=== PATIENT | male | born 1930 | race Caucasian/White ===

== ENCOUNTER 2016-02-15 10:59 | Outpatient (CLI) | payer MEDICARE, BC | END 2016-02-15 11:00 | disposition home or self-care (01) | DX: I48.91 Unspecified atrial fibrillation (principal) ==

== ENCOUNTER 2016-03-07 10:38 | Outpatient (CLI) | payer MEDICARE, BC | END 2016-03-07 10:39 | disposition home or self-care (01) | DX: I48.91 Unspecified atrial fibrillation (principal) ==

== ENCOUNTER 2016-04-04 09:06 | Outpatient (CLI) | payer MEDICARE, BC | END 2016-04-04 09:07 | disposition home or self-care (01) | DX: I48.91 Unspecified atrial fibrillation (principal) ==

== ENCOUNTER 2016-04-18 11:42 | Outpatient (CLI) | payer MEDICARE, BC | END 2016-04-18 11:43 | disposition home or self-care (01) | DX: R53.83 Other fatigue (principal); I48.91 Unspecified atrial fibrillation ==

== ENCOUNTER 2016-04-23 04:25 | Outpatient (CLI) | payer MEDICARE, OTHER | END 2016-04-23 04:26 | disposition critical access hospital (66) | DX: M54.2 Cervicalgia (principal); M25.511 Pain in right shoulder; W07.XXXA Fall from chair, initial encounter; Y92.009 Unspecified place in unspecified non-institutional (private) residence as the place of occurrence of the external cause | CPT/HCPCS: A0425; A0429 ==

== ENCOUNTER 2016-04-23 04:32 | Emergency (ER) | payer MEDICARE, OTHER ==
[2016-04-23] MEDS ORDERED: MORPHINE 2 MG/ML SYRINGE IVP STA (05:30)
[2016-04-23] MEDS ORDERED: MORPHINE 2 MG/ML SYRINGE ONE (05:32)
[2016-04-23] MEDS ORDERED: HYDROcod/ACET 5/325 Prepack 6 PO STA (07:29)
[2016-04-23] MEDS ORDERED: HYDROcod/ACET 5/325 Prepack 6 PO ONE (07:35)
[2016-04-23] MEDS ORDERED: CYCLOBENZAPRINE 10 MG TABLET PO ONE (07:54)
[2016-04-23] MEDS ORDERED: CYCLOBENZAPRINE 10 MG TABLET PO STA (07:54)
== END 2016-04-23 08:16 | disposition home or self-care (01) ==
DX: S16.1XXA Strain of muscle, fascia and tendon at neck level, initial encounter (principal); S43.401A Unspecified sprain of right shoulder joint, initial encounter; W01.0XXA Fall on same level from slipping, tripping and stumbling without subsequent striking against object, initial encounter; Y93.01 Activity, walking, marching and hiking; Y92.009 Unspecified place in unspecified non-institutional (private) residence as the place of occurrence of the external cause; Y99.8 Other external cause status; I50.9 Heart failure, unspecified; I48.91 Unspecified atrial fibrillation; Z79.01 Long term (current) use of anticoagulants; Z95.0 Presence of cardiac pacemaker
CPT/HCPCS: 36415; 72125; 73060; 80053; 83690; 85025; 85610; 85730; 96374; 99284; 99285; A9270

== ENCOUNTER 2016-05-09 08:55 | Outpatient (CLI) | payer MEDICARE, OTHER | END 2016-05-09 08:56 | disposition home or self-care (01) | DX: I48.91 Unspecified atrial fibrillation (principal) ==

== ENCOUNTER 2016-05-23 09:59 | Outpatient (CLI) | payer MEDICARE, OTHER | END 2016-05-23 10:00 | disposition home or self-care (01) | DX: I48.91 Unspecified atrial fibrillation (principal) ==

== ENCOUNTER 2016-06-20 09:46 | Outpatient (CLI) | payer MEDICARE, OTHER | END 2016-06-20 09:47 | disposition home or self-care (01) | LOC: LAB 09:46 | PROVIDERS: ATTEND Internal Medicine | DX: I48.91 Unspecified atrial fibrillation (principal) | CPT/HCPCS: 85610 ==

== ENCOUNTER 2016-07-18 12:13 | Outpatient (CLI) | payer MEDICARE, OTHER | END 2016-07-18 12:14 | disposition home or self-care (01) | LOC: LAB 12:13 | PROVIDERS: ATTEND Internal Medicine | DX: I48.91 Unspecified atrial fibrillation (principal) | CPT/HCPCS: 85610 ==

== ENCOUNTER 2016-08-01 09:55 | Outpatient (CLI) | payer MEDICARE, OTHER | END 2016-08-01 09:56 | disposition home or self-care (01) | LOC: LAB 09:55 | PROVIDERS: ATTEND Internal Medicine | DX: I48.91 Unspecified atrial fibrillation (principal) | CPT/HCPCS: 85610 ==

== ENCOUNTER 2016-08-29 15:08 | Outpatient (CLI) | payer MEDICARE, OTHER | END 2016-08-29 15:09 | disposition home or self-care (01) | LOC: LAB 15:08 | PROVIDERS: ATTEND Internal Medicine | DX: I48.91 Unspecified atrial fibrillation (principal) | CPT/HCPCS: 85610 ==

== ENCOUNTER 2016-09-26 08:01 | Outpatient (CLI) | payer MEDICARE, OTHER | END 2016-09-26 08:02 | disposition home or self-care (01) | LOC: LAB 08:01 | PROVIDERS: ATTEND Internal Medicine | DX: I48.91 Unspecified atrial fibrillation (principal) | CPT/HCPCS: 85610 ==

== ENCOUNTER 2016-10-02 08:00 | Outpatient (CLI) | payer MEDICARE, OTHER | END 2016-10-02 08:01 | disposition home or self-care (01) | LOC: LAB 08:00 | PROVIDERS: ATTEND Internal Medicine | DX: I48.91 Unspecified atrial fibrillation (principal) | CPT/HCPCS: 85610 ==

== ENCOUNTER 2016-10-30 09:43 | Outpatient (CLI) | payer MEDICARE, OTHER | END 2016-10-30 09:44 | disposition home or self-care (01) | LOC: LAB 09:43 | PROVIDERS: ATTEND Internal Medicine | DX: I48.91 Unspecified atrial fibrillation (principal) | CPT/HCPCS: 85610 ==

== ENCOUNTER 2016-11-06 10:28 | Outpatient (CLI) | payer MEDICARE, OTHER | END 2016-11-06 10:29 | disposition home or self-care (01) | LOC: LAB 10:28 | PROVIDERS: ATTEND Internal Medicine | DX: I48.91 Unspecified atrial fibrillation (principal) | CPT/HCPCS: 85610 ==

== ENCOUNTER 2016-12-21 12:23 | Outpatient (CLI) | payer MEDICARE, OTHER | END 2016-12-21 12:24 | disposition home or self-care (01) | LOC: LAB 12:23 | PROVIDERS: ATTEND Internal Medicine | DX: I48.91 Unspecified atrial fibrillation (principal) | CPT/HCPCS: 85610 ==

== ENCOUNTER 2017-01-01 09:42 | Outpatient (CLI) | payer MEDICARE, OTHER | END 2017-01-01 09:43 | disposition home or self-care (01) | LOC: LAB 09:42 | PROVIDERS: ATTEND Internal Medicine | DX: I48.91 Unspecified atrial fibrillation (principal) | CPT/HCPCS: 85610 ==

== ENCOUNTER 2017-01-17 21:24 | Outpatient (CLI) | payer MEDICARE, OTHER | END 2017-01-17 21:25 | disposition EMS.NT | LOC: EMS 21:24 | PROVIDERS: ATTEND Surgery | DX: S09.90XA Unspecified injury of head, initial encounter (principal); W01.10XA Fall on same level from slipping, tripping and stumbling with subsequent striking against unspecified object, initial encounter; Y92.009 Unspecified place in unspecified non-institutional (private) residence as the place of occurrence of the external cause ==

== ENCOUNTER 2017-01-30 10:13 | Outpatient (CLI) | payer MEDICARE, OTHER | END 2017-01-30 10:14 | disposition home or self-care (01) | LOC: LAB 10:13 | PROVIDERS: ATTEND Internal Medicine | DX: I48.91 Unspecified atrial fibrillation (principal) | CPT/HCPCS: 85610 ==

== ENCOUNTER 2017-02-13 11:52 | Outpatient (CLI) | payer MEDICARE, OTHER | END 2017-02-13 11:53 | disposition home or self-care (01) | LOC: LAB 11:52 | PROVIDERS: ATTEND Internal Medicine | DX: I48.91 Unspecified atrial fibrillation (principal) | CPT/HCPCS: 85610 ==

== ENCOUNTER 2017-03-13 15:49 | Outpatient (CLI) | payer MEDICARE, OTHER | END 2017-03-13 15:50 | disposition home or self-care (01) | LOC: LAB 15:49 | PROVIDERS: ATTEND Internal Medicine | DX: I48.91 Unspecified atrial fibrillation (principal) | CPT/HCPCS: 85610 ==

== ENCOUNTER 2017-04-10 11:23 | Outpatient (CLI) | payer MEDICARE, OTHER | END 2017-04-10 11:24 | disposition home or self-care (01) | LOC: LAB 11:23 | PROVIDERS: ATTEND Internal Medicine | DX: I48.91 Unspecified atrial fibrillation (principal) | CPT/HCPCS: 85610 ==

== ENCOUNTER 2017-05-08 10:21 | Outpatient (CLI) | payer MEDICARE, OTHER ==
[2017-05-08 10:40] LABS: INR 2.3 (0.8-1.2); PT - PROTHROMBIN TIME 25.2 secs (9.9-12.6)
[2017-05-08 10:44] LABS: CALCIUM 9.1 mg/dL (8.5-10.3); CREATININE 1.1 mg/dL (0.6-1.2)
== END 2017-05-08 10:22 | disposition home or self-care (01) ==
LOC: LAB 10:21
PROVIDERS: ATTEND Internal Medicine
DX: I48.91 Unspecified atrial fibrillation (principal); I48.1 Persistent atrial fibrillation
CPT/HCPCS: 36415; 80048; 85610

== ENCOUNTER 2017-06-05 13:51 | Outpatient (CLI) | payer MEDICARE, OTHER | END 2017-06-05 13:52 | disposition home or self-care (01) | LOC: LAB 13:51 | PROVIDERS: ATTEND Internal Medicine | DX: I48.91 Unspecified atrial fibrillation (principal) | CPT/HCPCS: 85610 ==

== ENCOUNTER 2017-07-03 15:28 | Outpatient (CLI) | payer MEDICARE, OTHER ==
[2017-07-03 15:55] LABS: PT - PROTHROMBIN TIME 58.1 secs (9.9-12.6)
[2017-07-03 16:08] LABS: INR 5.5 (0.8-1.2)
== END 2017-07-03 15:29 | disposition home or self-care (01) ==
LOC: LAB 15:28
PROVIDERS: ATTEND Internal Medicine
DX: I48.91 Unspecified atrial fibrillation (principal)
CPT/HCPCS: 85610

== ENCOUNTER 2017-07-04 20:22 | Outpatient (CLI) | payer MEDICARE, OTHER | END 2017-07-04 20:23 | disposition critical access hospital (66) | LOC: EMS 20:22 | PROVIDERS: ATTEND Surgery | DX: R53.1 Weakness (principal); R50.9 Fever, unspecified; R53.83 Other fatigue | CPT/HCPCS: A0425; A0429 ==

== ENCOUNTER 2017-07-04 20:32 | Inpatient (IN) | payer MEDICARE, OTHER ==
[2017-07-04] MEDS ORDERED: SODIUM CHLORIDE 0.9% 1,000 ML IV ONE (20:59)
--- NOTE | 2017-07-04 21:02 | ED Physician Documentation ---
History of Present Illness - Stated complaint Stated Complaint: WEAK/SHAKEY - Chief complaint Chief Complaint: General - History obtained from History obtained from: Patient, Family, EMS - History of Present Illness Timing: Today Pain level max: 3 Pain level now: 3 Improved by: oxygen Worsened by: exertion - Additonal information Additional information: Patient is an 86-year-old male who developed shaking and chills today. EMS was called and found to be febrile and hypoxic. Started on oxygen. He did suffer a ground-level fall approximately 3 days ago. He did not hit his head. Did not have any chest abdomen or back pain. He currently states that he feels very cold. He is currently holding his warfarin due to an elevated INR yesterday. Denies any cough. Denies any urinary symptoms. No diarrhea. No blood in the stool. No headache. No altered mental status. Review of Systems Ten Systems: 10 systems reviewed and negative Constitutional: reports: Fever, Chills Respiratory: reports: Cough Skin: denies: Rash Musculoskeletal: denies: Neck pain, Back pain Neurologic: reports: Generalized weakness. denies: Confused, Altered mental status PD PAST MEDICAL HISTORY - Past Medical History Cardiovascular: Congestive heart failure, Atrial fibrillation Respiratory: None Endocrine/Autoimmune:  GI: GERD : Benign prostate hypertrophy, Incontinence, Frequency HEENT: Chronic vision loss, Chronic hearing loss Psych: None Musculoskeletal: Osteoarthritis Derm: None - Past Surgical History Past Surgical History: Yes General: Cholecystectomy, Colonoscopy Ortho: Hip replacement, Carpal Tunnel surgery Cardiovascular: Pacemaker HEENT: Cataracts Derm:  - Present Medications Home Medications: Ambulatory Orders Medication Instructions Recorded Confirmed Cyanocobalamin (Vitamin B-12) 1,000 mcg PO BID 12/30/14 10/31/16 [B-12] Multivit-Min/FA/Lycopen/Lutein 1 tab ORAL DAILY 12/30/14 10/31/16 [Centrum Silver Tablet] Furosemide 1 tab PO DAILY 04/23/16 10/31/16 Lisinopril 1 tab PO DAILY 04/23/16 10/31/16 Potassium Chloride [K-Dur] 1 tab PO DAILY 04/23/16 10/31/16 Warfarin Sodium 2.5 - 5 mg PO DAILY PM 04/23/16 10/31/16 Acetaminophen [Tylenol Extra 1 tab PO DAILY PM 10/31/16 10/31/16 Strength] Digoxin 125 mcg PO DAILY 10/31/16 10/31/16 - Allergies Allergies/Adverse Reactions: Allergies Allergy/AdvReac Type Severity Reaction Status Date / Time No Known Drug Allergies Allergy Verified 07/04/17 20:49 - Social History Does the pt smoke?: No Smoking Status: Never smoker Does the pt drink ETOH?: No Does the pt have substance abuse?: No - Immunizations Immunizations are current?: Yes - POLST Patient has POLST: No PD ED PE NORMAL - Vitals Vital signs reviewed: Yes - General General: Alert and oriented X 3, No acute distress - HEENT HEENT: Ears normal, Pharynx benign, Other (dry lips) - Neck Neck: Supple, no meningeal sign - Cardiac Cardiac: RRR - Respiratory Respiratory: No respiratory distress, Other (diminished BS bilaterally.) - Abdomen Abdomen: Soft, Non tender, Non distended - Back Back: No spinal TTP - Derm Derm: Other (hot to the touch. moist skin) - Extremities Extremities: Other (B LE edema with chronic ulcerations B. ) - Neuro Neuro: Alert and oriented X 3 - Psych Psych: Normal mood, Normal affect Results - Vitals Vitals: Vital Signs - 24 hr 07/04/17 07/04/17 07/04/17 20:34 21:00 21:30 Temperature 39 C H 38.1 C H Heart Rate 79 75 72 Respiratory 25 H 22 20 Rate Blood Pressure 145/76 H 166/107 H 136/56 H O2 Saturation 86 L 95 96 Oxygen O2 Source [Without Activity] Room air O2 Source Nasal cannula Oxygen Flow Rate 2 - EKG (time done) 2047 Rate: Rate (enter#) (81) Rhythm: Atrial fibrillation [place]: Normal QRS: Normal Ischemia: Non specific changes - Labs Labs: Laboratory Tests 07/04/17 07/04/17 07/04/17 21:10 21:10 21:10 WBC 12.6 H RBC 4.31 L Hgb 13.8 L Hct 42.1 MCV 97.7 H MCH 32.0 H MCHC 32.8 RDW 14.1 Plt Count 136 MPV 8.4 Neut # 11.8 H Lymph # 0.3 L Hardin # 0.5 Eos # 0.0 Baso # 0.0 Absolute Nucleated RBC 0.00 Nucleated RBC % 0.0 PT INR Sodium 135 Potassium 4.5 Chloride 97 L Carbon Dioxide 30 Anion Gap 8.0 BUN 23 H Creatinine 1.1 Estimated GFR (MDRD) 63 L Glucose 128 H Lactic Acid 1.7 Calcium 9.3 Total Bilirubin 3.7 H AST 41 ALT 31 Alkaline Phosphatase 137 H Troponin I B-Natriuretic Peptide Total Protein 7.4 Albumin 3.9 Globulin 3.5 Albumin/Globulin Ratio 1.1 Lipase 66 H Last Dose Date Last Dose Time Digoxin 07/04/17 07/04/17 07/04/17 21:10 21:10 21:10 WBC RBC Hgb Hct MCV MCH MCHC RDW Plt Count MPV Neut # Lymph # Hardin # Eos # Baso # Absolute Nucleated RBC Nucleated RBC % PT 51.6 H INR 4.9 H* Sodium Potassium Chloride Carbon Dioxide Anion Gap BUN Creatinine Estimated GFR (MDRD) Glucose Lactic Acid Calcium Total Bilirubin AST ALT Alkaline Phosphatase Troponin I B-Natriuretic Peptide 312 H Total Protein Albumin Globulin Albumin/Globulin Ratio Lipase Last Dose Date UNKNOWN Last Dose Time UNKNOWN Digoxin 0.9 07/04/17 21:10 WBC RBC Hgb Hct MCV MCH MCHC RDW Plt Count MPV Neut # Lymph # Hardin # Eos # Baso # Absolute Nucleated RBC Nucleated RBC % PT INR Sodium Potassium Chloride Carbon Dioxide Anion Gap BUN Creatinine Estimated GFR (MDRD) Glucose Lactic Acid Calcium Total Bilirubin AST ALT Alkaline Phosphatase Troponin I 0.11 B-Natriuretic Peptide Total Protein Albumin Globulin Albumin/Globulin Ratio Lipase Last Dose Date Last Dose Time Digoxin - Rads (name of study) cxr Radiology: Prelim report reviewed, EMP read contemporaneously, See rad report ( Bibasal consolidation with partial collapse of the left lower lobe and a small right-sided pleural effusion) PD MEDICAL DECISION MAKING - ED course Complexity details: reviewed results, re-evaluated patient, considered differential, d/w patient, d/w family, d/w hospice care sales consultant ED course: Patient is an 86-year-old male who presents to the emergency department with pneumonia, probable early sepsis. He is hypoxic, febrile. Blood cultures drawn. IV fluids gently given due to his history of heart failure. He was given broad-spectrum antibiotics. INR is supratherapeutic, will continue to hold his warfarin. Discussed the case with Dr. Khan, hospitalist who accepts. This document was made in part using voice recognition software. While efforts are made to proofread this document, sound alike and grammatical errors may occur. Departure - Departure Disposition: [facility] DC/Xfer Clinical Impression: Hypoxia, Supratherapeutic INR Pneumonia Qualifiers: Pneumonia type: due to unspecified organism Laterality: right Lung location: lower lobe of lung Qualified Code(s): J18.1 - Lobar pneumonia, unspecified organism Condition: Stable Discharge Date/Time: 07/04/17 22:45
[2017-07-04 21:20] LABS: BASOPHILS % (AUTO) 0.2 %; HGB - HEMOGLOBIN 13.8 g/dL (14.0-18.0); LYMPHOCYTES # (AUTO) 0.3 10^3/uL (1.5-3.5); LYMPHOCYTES % (AUTO) 2.2 %; MEAN CORPUSCULAR HGB CONC 32.8 g/dL (32.0-36.0); MEAN CORPUSCULAR VOLUME 97.7 fL (80.0-94.0); MEAN PLATELET VOLUME 8.4 fL (7.4-11.4); MONOCYTES # (AUTO) 0.5 10^3/uL (0.0-1.0); NEUTROPHILS # (AUTO) 11.8 10^3/uL (1.5-6.6); NEUTROPHILS % (AUTO) 93.6 %; PLT - PLATELET COUNT 136 10^3/uL (130-450); RED BLOOD COUNT 4.31 10^6/uL (4.70-6.10); RED CELL DISTRIBUTION WIDTH 14.1 % (12.0-15.0); WHITE BLOOD COUNT 12.6 x10^3/uL (4.8-10.8)
[2017-07-04 21:29] LABS: PT - PROTHROMBIN TIME 51.6 secs (9.9-12.6)
[2017-07-04] MEDS ORDERED: VANCOMYCIN INJ 1 GM in SODIUM CHLORIDE 0.9% 500 ML IV STA (21:29)
[2017-07-04] MEDS ORDERED: CEFEPIME 2 GM in SODIUM CHLORIDE 0.9% MINIBAG 100 ML IV STA (21:29)
[2017-07-04 21:32] LABS: ALBUMIN 3.9 g/dL (3.2-5.5); ALBUMIN/GLOBULIN RATIO 1.1 (1.0-2.2); BILIRUBIN,TOTAL 3.7 mg/dL (0.2-1.0); CALCIUM 9.3 mg/dL (8.5-10.3); CREATININE 1.1 mg/dL (0.6-1.2); TOTAL PROTEIN 7.4 g/dL (6.7-8.2)
[2017-07-04] MEDS ORDERED: ONDANSETRON 4 MG/2 ML VIAL IVP PRN (21:38)
[2017-07-04] MEDS ORDERED: MORPHINE 2 MG/ML SYRINGE IVP PRN (21:38)
[2017-07-04] MEDS ORDERED: PROCHLORPERAZINE 10 MG/2 ML VIAL IVP PRN (21:38)
[2017-07-04] MEDS ORDERED: oxyCODONE 5 MG TABLET PO PRN ×2 (21:38)
[2017-07-04] MEDS ORDERED: ACETAMINOPHEN 325 MG TABLET PO PRN (21:38)
[2017-07-04 21:39] LABS: INR 4.9 (0.8-1.2)
[2017-07-04 21:44] LABS: DIGOXIN 0.9 ng/mL
[2017-07-04] MEDS ORDERED: IPRATROPIUM/ALBUTEROL 3 ML NEB INH PRN (21:44)
[2017-07-04 21:45] LABS: BILIRUBIN,URINE NEGATIVE (NEGATIVE); GLUCOSE, URINE (UA) NEGATIVE (NEGATIVE); KETONES,URINE (UA) NEGATIVE (NEGATIVE); LEUKOCYTE ESTERASE, URINE NEGATIVE (NEGATIVE); NITRITE,URINE NEGATIVE (NEGATIVE); OCCULT BLOOD,URINE TRACE-LYSE (NEGATIVE); PH,URINE 5.5 PH (5.0-7.5); PROTEIN,URINE NEGATIVE (NEGATIVE); UROBILINOGEN,URINE 0.2 (NORMAL) E.U./dL (NORMAL)
[2017-07-04 21:47] LABS: CLARITY,URINE CLEAR (CLEAR)
--- NOTE | 2017-07-04 21:56 | HISTORY & PHYSICAL EXAMINATION ---
Chief Complaint - Chief Complaint Chief Complaint: Chills and generalized weakness History of Present Illness - Admitted From Admitted From:: Emergency Department - History Obtained From Records Reviewed: Yes History obtained from: Patient Exam Limitations: None - History of Present Illness HPI Comment/Other: Patient is an 86-year-old gentleman with a past medical history significant for hypertension, atrial fibrillation on Coumadin, history of pacemaker and diastolic heart failure who presents to the emergency department with a chief complaint of chills and generalized weakness. The patient states that he has not been feeling his normal self since yesterday when he states in the afternoon he began noticing chills. He states that throughout the evening he felt increasingly weak. He states that today he was working on his golf cart with his son and when he got up from a sitting to standing position he felt extremely weak and could not stand anymore so slowly fell to the floor. He states from the floor he required help to get up. At this point his family decided to call 911. The patient denies having had any cough or shortness of air. The patient states that he has recently started using oxygen at night. He denies any chest pain, orthopnea, PND or increased lower extremity swelling. He also denies any abdominal pain, nausea, vomiting, diarrhea. He denies any focal neurologic deficits or neck stiffness. On arrival of EMS the patient was found to be hypoxic with oxygen saturation in the 80s. The patient was placed on oxygen and brought into the emergency department. Patient denies any headaches, blurred vision, runny nose, sore throat, nasal congestion, difficulty swallowing, urinary urgency, urinary frequency, dysuria, joint swelling, back pain, he does admit to increased erythema of his lower extremities. The patient denies any recent unintentional weight loss, night sweats or changes in his appetite. On presentation to the emergency department the patient was febrile with a temperature of 39.0, tachypneic with respiratory rate of 25 and hypoxic with O2 saturation of 86%. The patient's lab work revealed a leukocytosis of 12.6 but a normal lactic acid of 1.7. The patient did have a elevated bilirubin of 3.7 which was elevated from his baseline and a mildly elevated alk phos as well as a mildly elevated lipase. The patient's troponin was 0.11. Patient's urine was negative and his INR was found to be 4.9. The patient's chest x-ray revealed bibasilar consolidation with partial collapse of the left lower lobe and a right sided pleural effusion. Given these findings the patient was admitted to the [facility] for sepsis with acute respiratory failure with hypoxia secondary to pneumonia. Blood cultures were obtained in the emergency department and patient was placed on IV antibiotics. History - Past Medical History Cardiovascular: reports: Congestive heart failure (Diastolic), Hypertension, Atrial fibrillation Respiratory: reports: None Endocrine/Autoimmune: GI: reports: GERD : reports: Benign prostate hypertrophy, Incontinence, Frequency HEENT: reports: Chronic vision loss, Chronic hearing loss Psych: reports: None Musculoskeletal: reports: Osteoarthritis Derm: reports: None MRSA Hx?: No - Past Surgical History General: reports: Cholecystectomy, Colonoscopy Ortho: reports: Hip replacement, Carpal Tunnel surgery Cardiovascular: reports: Pacemaker HEENT: reports: Cataracts Derm: - Family & Social History Family History: Mother: (Patient was estranged and does not know how they ), Father: , Sister: COPD/Emphysema, Brother: Cancer ( Colon cancer with metastasis to the liver) Living arrangement: At home Living Situation: With spouse/s.o. Social History Notes: The patient lives with his on [facility]. They lived in a home and have been for 69 years. They have 6 grown children. The patient is retired and used to work on the [employer]. He was born in [place]. He denies any tobacco use, alcohol use or any illicit drug use. - POLST Patient has POLST: No POLST Status: Full Code Meds/Allgy - Home Medications Home Medications: Ambulatory Orders Medication Instructions Recorded Confirmed Cyanocobalamin (Vitamin B-12) 1,000 mcg PO BID 12/30/14 10/31/16 [B-12] Multivit-Min/FA/Lycopen/Lutein 1 tab ORAL DAILY 12/30/14 10/31/16 [Centrum Silver Tablet] Furosemide 1 tab PO DAILY 04/23/16 10/31/16 Lisinopril 1 tab PO DAILY 04/23/16 10/31/16 Potassium Chloride [K-Dur] 1 tab PO DAILY 04/23/16 10/31/16 Warfarin Sodium 2.5 - 5 mg PO DAILY PM 04/23/16 10/31/16 Acetaminophen [Tylenol Extra 1 tab PO DAILY PM 10/31/16 10/31/16 Strength] Digoxin 125 mcg PO DAILY 10/31/16 10/31/16 - Allergies Allergies/Adverse Reactions: Allergies Allergy/AdvReac Type Severity Reaction Status Date / Time No Known Drug Allergies Allergy Verified 07/04/17 20:49 Review of Systems - Other Findings Other Findings: A comprehensive review of systems was performed the pertinent positives and negatives are stated above in the HPI and the remainder of the review of systems is negative. Exam - Vital Signs Reviewed Vital Signs: Yes Vital Signs: Vital Signs x48h Temp Pulse Resp BP Pulse Ox 07/04/17 20:34 39 C H 79 25 H 145/76 H 86 L - Physical Exam General Appearance: positive: Alert, Mild distress (Respiratory) Eyes Bilateral: positive: Normal inspection, PERRL, EOMI, No lid inflammation, Conjunctivae nml, No scleral icterus ENT: positive: ENT inspection nml, Pharynx nml, Dry mucous membranes. negative : Purulent nasal drainage, Pharyngeal erythema, Oral lesions Neck: positive: Nml inspection, Thyroid nml, No JVD, Trachea midline. negative : Thyromegaly, Lymphadenopathy (R), Lymphadenopathy (L), Stiff neck, Carotid bruit, Tracheal deviation Respiratory: positive: Chest non-tender, Rhonchi (Bilateral with coarse breath sounds), Other (Decreased breath sounds in lower lungs especially on the left) Cardiovascular: positive: No gallop, Irregularly irregular, Systolic murmur Peripheral Pulses: positive: 2+ Abdomen: positive: No organomegaly, Nml bowel sounds, Tenderness (Mild in the epigastrium). negative: Guarding, Rebound, Hepatomegaly Back: positive: Nml inspection. negative: CVA tenderness (R), CVA tenderness (L ) Skin: positive: Warm, Other (Patient has bilateral lower extremity erythema worse in the right lower extremity. Appears to be chronic changes of venous stasis.). negative: Cyanosis, Diaphoresis, Pallor Extremities: positive: Full ROM, Pedal edema (Bilateral), Other (Patient has bilateral lower extremity erythema worse in the right lower extremity. Appears to be chronic changes of venous stasis.) Neurologic/Psychiatric: positive: Oriented x3, CN's nml (2-12), Motor nml, Sensation nml, Mood/affect nml, Other (Hard of hearing) Conclusion/Plan - Problem List (1) Sepsis Conclusion/Plan: Patient presented to the emergency department with generalized weakness and chills. On presentation the patient was febrile with a temperature of 39.0, tachypneic with respiratory rate of 25, hypoxic requiring up to 3 L of oxygen with a leukocytosis of greater than 12 and source appears to be pneumonia. Plan: Patient will be started on broad-spectrum IV antibiotics with vancomycin and cefepime we will await blood cultures to de-escalate antibiotics if blood cultures are negative then we will de-escalate to treatment for community acquired pneumonia Give IV fluids gently as the patient does have a history of diastolic heart failure Await blood cultures Monitor closely for any deterioration Monitor lactic acid Qualifiers: Sepsis type: sepsis due to unspecified organism Qualified Code(s): A41.9 - Sepsis, unspecified organism (2) Acute respiratory failure with hypoxia Conclusion/Plan: Patient has a history of diastolic heart failure it is unclear if he has any history of asthma or COPD although he states he uses oxygen at night which he started recently. The patient does not appear wheezy on examination. The patient's chest x-ray does show bibasilar pneumonia. The patient is hypoxic on presentation with sepsis. Patient is requiring 3 L of oxygen. Plan: Patient will be treated with IV antibiotics for pneumonia Patient will be placed on oxygen to maintain oxygen saturation of greater than 88% Patient will be given nebulizer treatments as needed (3) CAP (community acquired pneumonia) Conclusion/Plan: The patient presented with sepsis and acute respiratory failure with hypoxia. Patient is requiring 3 L of oxygen to maintain good saturations. The patient does have a history of diastolic heart failure but no history of COPD. Patient has been hospitalized with pneumonia in the past. Given that he presented with sepsis will be treated with broad-spectrum IV antibiotics. Plan: IV vancomycin and cefepime Follow-up blood cultures IV fluids Supplemental oxygen Nebs as needed Qualifiers: Laterality: unspecified laterality Qualified Code(s): J18.9 - Pneumonia, unspecified organism (4) Diastolic heart failure Conclusion/Plan: Patient has a history of diastolic heart failure as his previous echocardiogram showed moderate mitral and tricuspid regurgitation. Patient also appeared to have elevated right-sided heart pressures. The patient also has atrial fibrillation and hypertension all of which are likely contributing to diastolic heart failure. Patient does have lower extremity swelling but does not appear to have exacerbation of CHF. Patient's troponin appears to be stable and he has a BNP which is decreased from previous. Plan: We will need to be careful with hydration even in the setting of sepsis as the patient does have diastolic heart failure. We will get an echocardiogram to assess the patient's current cardiac function. Daily BNP Serial troponins Qualifiers: Heart failure chronicity: chronic Qualified Code(s): I50.32 - Chronic diastolic (congestive) heart failure (5) Atrial fibrillation Conclusion/Plan: Patient has chronic atrial fibrillation. The patient is currently in atrial fibrillation on presentation. The patient is on digoxin for rate and rhythm control. The patient is also on Coumadin but has a supratherapeutic INR. The patient's Coumadin will be held and his INR will be checked daily. Patient will be continued on his home dose of digoxin. We will check the patient's digoxin level. Qualifiers: Atrial fibrillation type: chronic Qualified Code(s): I48.2 - Chronic atrial fibrillation (6) Hypertension Conclusion/Plan: Patient has a history of hypertension and is on lisinopril and Lasix for hypertension. Given that the patient is presenting with sepsis his Lasix will be held and lisinopril will be given carefully. Currently the patient's blood pressure is elevated but it will be monitored and if it does start to decrease we will need to hold any antihypertensive medications. Patient will be continued on IV fluids for sepsis. Qualifiers: Hypertension type: essential hypertension Qualified Code(s): I10 - Essential (primary) hypertension (7) Elevated bilirubin Conclusion/Plan: Patient does have an elevated bilirubin and alk phos. The patient's bilirubin is 3.7. Patient bilirubin has been elevated in the past. The patient does have some tenderness on examination of his abdomen. Although the patient's source of sepsis appears to be pneumonia we will get an abdominal ultrasound to ensure that he does not also have acute cholecystitis. Patient may also have liver congestion due to diastolic heart failure. Monitor patient's LFTs. - Lab Results Lab results reviewed: Yes Fish Bones: 07/04/17 21:10 07/04/17 21:10 Other Lab Results: Laboratory Results WBC 12.6 x10^3/uL (4.8-10.8) H 07/04/17 21:10 RBC 4.31 10^6/uL (4.70-6.10) L 07/04/17 21:10 Hgb 13.8 g/dL (14.0-18.0) L 07/04/17 21:10 Hct 42.1 % (42.0-52.0) 07/04/17 21:10 MCV 97.7 fL (80.0-94.0) H 07/04/17 21:10 MCH 32.0 pg (27.0-31.0) H 07/04/17 21:10 MCHC 32.8 g/dL (32.0-36.0) 07/04/17 21:10 RDW 14.1 % (12.0-15.0) 07/04/17 21:10 Plt Count 136 10^3/uL (130-450) 07/04/17 21:10 MPV 8.4 fL (7.4-11.4) 07/04/17 21:10 Neut # 11.8 10^3/uL (1.5-6.6) H 07/04/17 21:10 Lymph # 0.3 10^3/uL (1.5-3.5) L 07/04/17 21:10 Tyler # 0.5 10^3/uL (0.0-1.0) 07/04/17 21:10 Eos # 0.0 10^3/uL (0.0-0.7) 07/04/17 21:10 Baso # 0.0 10^3/uL (0.0-0.1) 07/04/17 21:10 Absolute Nucleated RBC 0.00 x10^3/uL 07/04/17 21:10 Nucleated RBC % 0.0 /100WBC 07/04/17 21:10 PT 51.6 secs (9.9-12.6) H 07/04/17 21:10 INR 4.9 (0.8-1.2) H* 07/04/17 21:10 Sodium 135 mmol/L (135-145) 07/04/17 21:10 Potassium 4.5 mmol/L (3.5-5.0) 07/04/17 21:10 Chloride 97 mmol/L (101-111) L 07/04/17 21:10 Carbon Dioxide 30 mmol/L (21-32) 07/04/17 21:10 Anion Gap 8.0 (6-13) 07/04/17 21:10 BUN 23 mg/dL (6-20) H 07/04/17 21:10 Creatinine 1.1 mg/dL (0.6-1.2) 07/04/17 21:10 Estimated GFR (MDRD) 63 (>89) L 07/04/17 21:10 Glucose 128 mg/dL (70-100) H 07/04/17 21:10 Lactic Acid 1.1 mmol/L (0.5-2.2) 07/05/17 01:40 Calcium 9.3 mg/dL (8.5-10.3) 07/04/17 21:10 Total Bilirubin 3.7 mg/dL (0.2-1.0) H 07/04/17 21:10 AST 41 IU/L (10-42) 07/04/17 21:10 ALT 31 IU/L (10-60) 07/04/17 21:10 Alkaline Phosphatase 137 IU/L (42-121) H 07/04/17 21:10 Troponin I 0.11 ng/mL (<0.49) 07/04/17 21:10 B-Natriuretic Peptide 312 pg/mL (5-100) H 07/04/17 21:10 Total Protein 7.4 g/dL (6.7-8.2) 07/04/17 21:10 Albumin 3.9 g/dL (3.2-5.5) 07/04/17 21:10 Globulin 3.5 g/dL (2.1-4.2) 07/04/17 21:10 Albumin/Globulin Ratio 1.1 (1.0-2.2) 07/04/17 21:10 Lipase 66 U/L (22-51) H 07/04/17 21:10 Urine Color YELLOW 07/04/17 21:42 Urine Clarity CLEAR (CLEAR) 07/04/17 21:42 Urine pH 5.5 PH (5.0-7.5) 07/04/17 21:42 Ur Specific Rosanky 1.020 (1.002-1.030) 07/04/17 21:42 Urine Protein NEGATIVE mg/dL (NEGATIVE) 07/04/17 21:42 Urine Glucose (UA) NEGATIVE mg/dL (NEGATIVE) 07/04/17 21:42 Urine Ketones NEGATIVE mg/dL (NEGATIVE) 07/04/17 21:42 Urine Occult Blood TRACE-LYSE (NEGATIVE) 07/04/17 21:42 Urine Nitrite NEGATIVE (NEGATIVE) 07/04/17 21:42 Urine Bilirubin NEGATIVE (NEGATIVE) 07/04/17 21:42 Urine Urobilinogen 0.2 (NORMAL) E.U./dL (NORMAL) 07/04/17 21:42 Ur Leukocyte Esterase NEGATIVE (NEGATIVE) 07/04/17 21:42 Ur Microscopic Review NOT INDICATED 07/04/17 21:42 Urine Culture Comments NOT INDICATED 07/04/17 21:42 Last Dose Date UNKNOWN 07/04/17 21:10 Last Dose Time UNKNOWN 07/04/17 21:10 Digoxin 0.9 ng/mL 07/04/17 21:10 - Diagnostic Imaging Results Diagnostic Imaging Results: positive: Final report reviewed Diagnostic Imaging Results Comments: Chest x-ray Impression: Bibasilar consolidation with partial collapse of the left lower lobe and a small right-sided pleural effusion. - EKG Results EKG Interpreted Independently: Yes EKG Findings: No ST elevations or ischemic changes noted. Patient has atrial fibrillation on the EKG. Core Measures - Anticipated LOS I expect patient to be DC'd or transferred within 96 hours.: Yes - DVT/VTE - Prophylaxis VTE/DVT Device ordered at admit?: Yes
[2017-07-04] MEDS ORDERED: VANCOMYCIN PER PHARMACY 1 GM in SODIUM CHLORIDE 0.9% 250 ML IV SCH (22:00)
--- NOTE | 2017-07-04 22:25 | XRAY Report ---
EXAM: CHEST RADIOGRAPHY EXAM DATE: 07/04/2017 09:19 PM. CLINICAL HISTORY: Hypoxia, fever. COMPARISON: 03/24/2015. TECHNIQUE: 1 view. FINDINGS: Lungs/Pleura: There is left lower lobe partial collapse and consolidation. There is partial consolida tion of the right lower lobe. There is a small right-sided pleural effusion. Mediastinum: Within exam limitations, the cardiomediastinal contour is normal. Other: None. IMPRESSION: Bibasal consolidation with partial collapse of the left lower lobe and a small right-side d pleural effusion. [facility] Referring Provider Line: [phone] SITE ID: [id number]
[2017-07-04] MEDS: SODIUM CHLORIDE 0.9% 1,000 ML IV SCH (23:00)
[2017-07-04] MEDS: CEFEPIME 2 GM in SODIUM CHLORIDE 0.9% MINIBAG 100 ML IV SCH (23:27)
[2017-07-05] MEDS: VANCOMYCIN INJ 1.25 GM in SODIUM CHLORIDE 0.9% 250 ML IV SCH (00:11)
[2017-07-05] MEDS: SODIUM CHLORIDE FLUSH 0.9% 10 ML SYRINGE IVP SCH ×3 (02:16→19:46)
--- NOTE | 2017-07-05 04:30 | Ultrasound Report ---
EXAM: ABDOMEN ULTRASOUND EXAM DATE: 07/05/2017 02:02 AM. CLINICAL HISTORY: Hyperbilirubinemia with sepsis. COMPARISON: 07/07/2013. TECHNIQUE: Real-time scanning was performed with static images obtained. FINDINGS: Liver: Multiple cysts measuring up to 1.7 cm. 13 cm. Main portal vein flow: Hepatopetal. Gallbladder: Surgically absent. Biliary System: Common bile duct measures 4 mm. No intrahepatic or extrahepatic ductal dilatation. Pancreas: Not well seen due to bowel gas. Possible borderline caliber pancreatic duct measuring 2.9 m m. Kidneys: Right: 9.8 cm longitudinally. Normal. No contour-deforming mass, stones, or hydronephrosis. Left: 9.6 cm longitudinally. Normal. No contour-deforming mass, stones, or hydronephrosis. Spleen: 9.6 cm. Normal in size and echotexture. Aorta and Inferior Vena Cava: The visualized portions appear normal. Other: Right pleural effusion. IMPRESSION: 1. Status post cholecystectomy. No biliary dilatation seen. 2. Liver cysts measuring up to 1.7 cm. 3. No hydronephrosis seen. 4. Right pleural effusion. 5. Pancreas not well-seen due to bowel gas. Possible upper normal pancreatic duct measuring 2.9 mm. [facility] Referring Provider Line: [phone] SITE ID: [id number]
--- NOTE | 2017-07-05 04:30 | Ultrasound Preliminary Report ---
Exam: US ABDOMEN COMPLETE IMPRESSION: 1. Status post cholecystectomy. No biliary dilatation seen. 2. Liver cysts measuring up to 1.7 cm. 3. No hydronephrosis seen. 4. Right pleural effusion. 5. Pancreas not well-seen due to bowel gas. Possible upper normal pancreatic duct measuring 2.9 mm. [facility] SITE ID: [id number]
[2017-07-05 05:29] LABS: BASOPHILS % (AUTO) 0.2 %; HGB - HEMOGLOBIN 13.3 g/dL (14.0-18.0); LYMPHOCYTES # (AUTO) 0.5 10^3/uL (1.5-3.5); LYMPHOCYTES % (AUTO) 2.9 %; MEAN CORPUSCULAR HGB CONC 32.4 g/dL (32.0-36.0); MEAN CORPUSCULAR VOLUME 98.6 fL (80.0-94.0); MEAN PLATELET VOLUME 8.4 fL (7.4-11.4); MONOCYTES # (AUTO) 0.9 10^3/uL (0.0-1.0); MONOCYTES % (AUTO) 5.1 %; NEUTROPHILS # (AUTO) 15.6 10^3/uL (1.5-6.6); NEUTROPHILS % (AUTO) 91.8 %; PLT - PLATELET COUNT 109 10^3/uL (130-450); RED BLOOD COUNT 4.14 10^6/uL (4.70-6.10); RED CELL DISTRIBUTION WIDTH 14.4 % (12.0-15.0)
[2017-07-05 05:31] LABS: PT - PROTHROMBIN TIME 50.7 secs (9.9-12.6)
[2017-07-05 05:36] LABS: ALBUMIN 3.4 g/dL (3.2-5.5); ALBUMIN/GLOBULIN RATIO 1.1 (1.0-2.2); ALKALINE PHOSPHATASE 120 IU/L (42-121); ALT ALANINE AMINOTRANSFERASE 32 IU/L (10-60); AST ASPARTATE AMINOTRANSFERASE 43 IU/L (10-42); BILIRUBIN,TOTAL 4.2 mg/dL (0.2-1.0); BUN - BLOOD UREA NITROGEN 24 mg/dL (6-20); CARBON DIOXIDE - CO2 29 mmol/L (21-32); CHLORIDE 100 mmol/L (101-111); CREATININE 1.1 mg/dL (0.6-1.2); GFR - MDRD 63 (>89); GLUCOSE 115 mg/dL (70-100); INR 4.8 (0.8-1.2); MAGNESIUM 1.6 mg/dL (1.7-2.8); SODIUM 138 mmol/L (135-145); TOTAL PROTEIN 6.4 g/dL (6.7-8.2)
[2017-07-05] MEDS: SODIUM CHLORIDE 0.9% 1,000 ML IV SCH (09:10)
--- NOTE | 2017-07-05 09:22 | PROVIDER PROGRESS NOTE ---
Subjective - Prog Note Date Prog Note Date: 07/05/17 Prog Note Time: 09:20 - Subjective Pt reports feeling: Improved Subjective: his main worry this morning is that there is salted butter on his tray and he prefers unsalted butter. The chills and rigors have gone away. He was weak and his arms were shaking more and more this last week. That has resolved. He denies cp, sob. Denies cough. No abd complaints. Current Medications - Current Medications Current Medications: Active Medications Acetaminophen (Tylenol) 650 mg PO Q4HR PRN PRN Reason: Pain 1 to 4 Albuterol/Ipratropium (Duoneb) 3 ml INH RTQID PRN PRN Reason: Wheezing Digoxin (Lanoxin) 125 mcg PO DAILY [facility] Famotidine (Pepcid) 20 mg PO DAILY [facility] Cefepime HCl 2 gm/ Sodium (Chloride) 100 mls @ 200 mls/hr IV Q12H [facility] Last Admin: 07/04/17 23:27 Dose: Not Given Sodium Chloride (Normal Saline 0.9%) 1,000 mls @ 100 mls/hr IV .Q10H [facility] Stop: 07/05/17 17:59 Last Admin: 07/05/17 09:10 Dose: 100 mls/hr Vancomycin HCl 1.25 gm/ Sodium (Chloride) 250 mls @ 250 mls/hr IV Q24H [facility] Last Infusion: 07/05/17 02:15 Dose: Infused Lisinopril (Zestril) 2.5 mg PO DAILY [facility] Morphine Sulfate (Morphine) 2 mg IVP Q2H PRN PRN Reason: Pain 8 to 10 Ondansetron HCl (Zofran Inj) 4 mg IVP Q6HR PRN PRN Reason: Nausea / Vomiting Oxycodone HCl (Roxicodone) 5 mg PO Q4HR PRN PRN Reason: Pain 5 to 7 Oxycodone HCl (Roxicodone) 10 mg PO Q4HR PRN PRN Reason: Pain 8 to 10 Polyethylene Glycol (Miralax) 17 gm PO DAILY [facility] Prochlorperazine Edisylate (Compazine Inj) 10 mg IVP Q6HR PRN PRN Reason: Nausea / Vomiting Saccharomyces Boulardii (Florastor) 250 mg PO BIDWM [facility] Sodium Chloride (Normal Saline Flush 0.9%) 10 ml IVP PRN PRN PRN Reason: NEEDED PER PROVIDER ORDERS Sodium Chloride (Normal Saline Flush 0.9%) 10 ml IVP 0100,0900,1700 [facility] Last Admin: 07/05/17 07:18 Dose: Not Given Furosemide 1 tab PO DAILY 04/23/16 Lisinopril 2.5 mg PO DAILY 04/23/16 Potassium Chloride [K-Dur] 20 meq PO DAILY 04/23/16 Warfarin Sodium 2.5 - 5 mg PO DAILY PM 04/23/16 Digoxin 125 mcg PO DAILY 10/31/16 Objective - Vital Signs/Intake & Output Reviewed Vital Signs: Yes Intake & Output: Intake & Output 07/02/17 07/03/17 07/04/17 07/05/17 23:59 23:59 23:59 23:59 Intake Total 267.5 1730.000 Output Total 85 Balance 267.5 1645.000 - Objective General Appearance: positive: No acute distress, Alert, Other (short statured, deaf elderly white male, morbidly obese and speaking in a loud loud voice, eating his breakfast in no acute distress. and daughter in law at the bedside.) Eyes Bilateral: positive: PERRL, Other (glasses) ENT: positive: Pharynx nml, Other (hearing aid in place but still deaf, can't hear me if I'm not in front of him to lip read) Neck: positive: No JVD. negative: Stiff neck, Carotid bruit Respiratory: positive: Chest non-tender, Other (long AP diameter). negative: Wheezes, Rales, Rhonchi Cardiovascular: positive: Regular rate & rhythm. negative: Gallop/S4, Friction rub Abdomen: positive: Non-tender, Nml bowel sounds, No distention, Other (can't assess for organomegaly with such a large panus) Skin: positive: Warm, Dry Extremities: positive: Full ROM, Pedal edema (with venous stasis redness and skin discoloration over shins Right>Left. there are small dime size loss of skin over areas.) Neurologic/Psychiatric: positive: Oriented x3, CN's nml (2-12) (except deaf), Motor nml (but general weakness) - Lab Results Fish Bones: 07/05/17 05:05 07/05/17 05:05 Other Labs: Lab Results x24hrs 07/05/17 07/05/17 07/05/17 Range/Units 05:05 05:05 05:05 WBC (4.8-10.8) x10^3/uL RBC (4.70-6.10) 10^6/uL Hgb (14.0-18.0) g/dL Hct (42.0-52.0) % MCV (80.0-94.0) fL MCH (27.0-31.0) pg MCHC (32.0-36.0) g/dL RDW (12.0-15.0) % Plt Count (130-450) 10^3/uL MPV (7.4-11.4) fL Neut # (1.5-6.6) 10^3/uL Lymph # (1.5-3.5) 10^3/uL Mercer # (0.0-1.0) 10^3/uL Eos # (0.0-0.7) 10^3/uL Baso # (0.0-0.1) 10^3/uL Absolute Nucleated RBC x10^3/uL Nucleated RBC % /100WBC PT 50.7 H (9.9-12.6) secs INR 4.8 H* (0.8-1.2) Sodium 138 (135-145) mmol/L Potassium 4.6 (3.5-5.0) mmol/L Chloride 100 L (101-111) mmol/L Carbon Dioxide 29 (21-32) mmol/L Anion Gap 9.0 (6-13) BUN 24 H (6-20) mg/dL Creatinine 1.1 (0.6-1.2) mg/dL Estimated GFR (MDRD) 63 L (>89) Glucose 115 H (70-100) mg/dL Lactic Acid (0.5-2.2) mmol/L Calcium 9.0 (8.5-10.3) mg/dL Ionized Calcium NO Magnesium 1.6 L (1.7-2.8) mg/dL Total Bilirubin 4.2 H (0.2-1.0) mg/dL AST 43 H (10-42) IU/L ALT 32 (10-60) IU/L Alkaline Phosphatase 120 (42-121) IU/L Troponin I 0.21 (<0.49) ng/mL Total Protein 6.4 L (6.7-8.2) g/dL Albumin 3.4 (3.2-5.5) g/dL Globulin 3.0 (2.1-4.2) g/dL Albumin/Globulin Ratio 1.1 (1.0-2.2) Urine Color Urine Clarity (CLEAR) Urine pH (5.0-7.5) PH Ur Specific [place] (1.002-1.030) Urine Protein (NEGATIVE) mg/dL Urine Glucose (UA) (NEGATIVE) mg/dL Urine Ketones (NEGATIVE) mg/dL Urine Occult Blood (NEGATIVE) Urine Nitrite (NEGATIVE) Urine Bilirubin (NEGATIVE) Urine Urobilinogen (NORMAL) E.U./dL Ur Leukocyte Esterase (NEGATIVE) Ur Microscopic Review Urine Culture Comments 07/05/17 07/05/17 07/05/17 Range/Units 05:05 05:05 01:40 WBC 17.0 H (4.8-10.8) x10^3/uL RBC 4.14 L (4.70-6.10) 10^6/uL Hgb 13.3 L (14.0-18.0) g/dL Hct 40.9 L (42.0-52.0) % MCV 98.6 H (80.0-94.0) fL MCH 32.0 H (27.0-31.0) pg MCHC 32.4 (32.0-36.0) g/dL RDW 14.4 (12.0-15.0) % Plt Count 109 L (130-450) 10^3/uL MPV 8.4 (7.4-11.4) fL Neut # 15.6 H (1.5-6.6) 10^3/uL Lymph # 0.5 L (1.5-3.5) 10^3/uL Mercer # 0.9 (0.0-1.0) 10^3/uL Eos # 0.0 (0.0-0.7) 10^3/uL Baso # 0.0 (0.0-0.1) 10^3/uL Absolute Nucleated RBC 0.01 x10^3/uL Nucleated RBC % 0.0 /100WBC PT (9.9-12.6) secs INR (0.8-1.2) Sodium (135-145) mmol/L Potassium (3.5-5.0) mmol/L Chloride (101-111) mmol/L Carbon Dioxide (21-32) mmol/L Anion Gap (6-13) BUN (6-20) mg/dL Creatinine (0.6-1.2) mg/dL Estimated GFR (MDRD) (>89) Glucose (70-100) mg/dL Lactic Acid 1.6 1.1 (0.5-2.2) mmol/L Calcium (8.5-10.3) mg/dL Ionized Calcium Magnesium (1.7-2.8) mg/dL Total Bilirubin (0.2-1.0) mg/dL AST (10-42) IU/L ALT (10-60) IU/L Alkaline Phosphatase (42-121) IU/L Troponin I (<0.49) ng/mL Total Protein (6.7-8.2) g/dL Albumin (3.2-5.5) g/dL Globulin (2.1-4.2) g/dL Albumin/Globulin Ratio (1.0-2.2) Urine Color Urine Clarity (CLEAR) Urine pH (5.0-7.5) PH Ur Specific [place] (1.002-1.030) Urine Protein (NEGATIVE) mg/dL Urine Glucose (UA) (NEGATIVE) mg/dL Urine Ketones (NEGATIVE) mg/dL Urine Occult Blood (NEGATIVE) Urine Nitrite (NEGATIVE) Urine Bilirubin (NEGATIVE) Urine Urobilinogen (NORMAL) E.U./dL Ur Leukocyte Esterase (NEGATIVE) Ur Microscopic Review Urine Culture Comments 07/04/17 Range/Units 21:42 WBC (4.8-10.8) x10^3/uL RBC (4.70-6.10) 10^6/uL Hgb (14.0-18.0) g/dL Hct (42.0-52.0) % MCV (80.0-94.0) fL MCH (27.0-31.0) pg MCHC (32.0-36.0) g/dL RDW (12.0-15.0) % Plt Count (130-450) 10^3/uL MPV (7.4-11.4) fL Neut # (1.5-6.6) 10^3/uL Lymph # (1.5-3.5) 10^3/uL Mercer # (0.0-1.0) 10^3/uL Eos # (0.0-0.7) 10^3/uL Baso # (0.0-0.1) 10^3/uL Absolute Nucleated RBC x10^3/uL Nucleated RBC % /100WBC PT (9.9-12.6) secs INR (0.8-1.2) Sodium (135-145) mmol/L Potassium (3.5-5.0) mmol/L Chloride (101-111) mmol/L Carbon Dioxide (21-32) mmol/L Anion Gap (6-13) BUN (6-20) mg/dL Creatinine (0.6-1.2) mg/dL Estimated GFR (MDRD) (>89) Glucose (70-100) mg/dL Lactic Acid (0.5-2.2) mmol/L Calcium (8.5-10.3) mg/dL Ionized Calcium Magnesium (1.7-2.8) mg/dL Total Bilirubin (0.2-1.0) mg/dL AST (10-42) IU/L ALT (10-60) IU/L Alkaline Phosphatase (42-121) IU/L Troponin I (<0.49) ng/mL Total Protein (6.7-8.2) g/dL Albumin (3.2-5.5) g/dL Globulin (2.1-4.2) g/dL Albumin/Globulin Ratio (1.0-2.2) Urine Color YELLOW Urine Clarity CLEAR (CLEAR) Urine pH 5.5 (5.0-7.5) PH Ur Specific [place] 1.020 (1.002-1.030) Urine Protein NEGATIVE (NEGATIVE) mg/dL Urine Glucose (UA) NEGATIVE (NEGATIVE) mg/dL Urine Ketones NEGATIVE (NEGATIVE) mg/dL Urine Occult Blood TRACE-LYSE (NEGATIVE) Urine Nitrite NEGATIVE (NEGATIVE) Urine Bilirubin NEGATIVE (NEGATIVE) Urine Urobilinogen 0.2 (NORMAL) (NORMAL) E.U./dL Ur Leukocyte Esterase NEGATIVE (NEGATIVE) Ur Microscopic Review NOT INDICATED Urine Culture Comments NOT INDICATED ABX Reporting Has patient been on IV antibiotics over the past 48 hours?: Yes Assessment/Plan - Problem List (1) Sepsis Impression: Fever has resolved but still with elevated WBC at 17K. Patient presented to the emergency department with generalized weakness and chills. On presentation the patient was febrile with a temperature of 39.0, tachypneic with respiratory rate of 25, hypoxic requiring up to 3 L of oxygen with a leukocytosis of greater than 12 and source appears to be pneumonia. On todays exam I find that his leg may be contributing as well. Plan: Started on broad-spectrum IV antibiotics with vancomycin and cefepime, Day #2. we will await blood cultures to de-escalate antibiotics if blood cultures are negative then we will de-escalate to treatment for community acquired pneumonia Give IV fluids gently as the patient does have a history of diastolic heart failure Monitor closely for any deterioration but he appears on the road to recovery when his main complaint, truly, is the salted butter. lactic acid has stayed low and no elevated this am. Qualifiers: Sepsis type: sepsis due to unspecified organism Qualified Code(s): A41.9 - Sepsis, unspecified organism (2) Acute respiratory failure with hypoxia Conclusion/Plan: Patient has a history of diastolic heart failure it is unclear if he has any history of asthma or COPD although he states he uses oxygen at night which he started recently. The patient does not appear wheezy on examination. The patient's chest x-ray does show bibasilar pneumonia. The patient is hypoxic on presentation with sepsis. Patient is requiring 3 L of oxygen. usually not on O2 at home. Plan: Treated with IV antibiotics for pneumonia, Day #2. On oxygen to maintain oxygen saturation of greater than 88%. This am he's down to 2.5 liters from 3 liters and is 96% Patient will be given nebulizer treatments as needed (3) CAP (community acquired pneumonia) Conclusion/Plan: The patient presented with sepsis and acute respiratory failure with hypoxia. Patient is requiring 3 L of oxygen to maintain good saturations. The patient does have a history of diastolic heart failure but no history of COPD. Patient has been hospitalized with pneumonia in the past. Given that he presented with sepsis will be treated with broad-spectrum IV antibiotics. Plan: IV vancomycin and cefepime, today Day #2. Follow-up blood cultures IV fluids Supplemental oxygen Nebs as needed The CT scan is suspicious for neoplasm bc the left lung is collapsed. Plan for repeat CXR tomorrow am. If he has inflated, no further workup. If it's still collapsed, get CT of chest. Qualifiers: Laterality: unspecified laterality Qualified Code(s): J18.9 - Pneumonia, unspecified organism (4) Diastolic heart failure Conclusion/Plan: Patient has a history of diastolic heart failure as his previous echocardiogram showed moderate mitral and tricuspid regurgitation. Patient also appeared to have elevated right-sided heart pressures. The patient also has atrial fibrillation and hypertension all of which are likely contributing to diastolic heart failure. Patient does have lower extremity swelling but does not appear to have exacerbation of CHF. Patient's troponin appears to be stable and he has a BNP which is decreased from previous. The PRELIMINARY Echo report this am shows a reduced EF from 03/2015. He was 55-60% and is to 45-50%. 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 RVSP is 42mm Hg. He has severe LAE and moderate BARRON. Plan: We will need to be careful with hydration even in the setting of sepsis as the patient does have diastolic heart failure. He will get a total of 2 liters of NS then IV lock. Yesterday I/O 267(+) and today 1755 (+) so far. Daily BNP Serial troponins have a 0.11 and 0.21. See what #3 is at noon today. Qualifiers: Heart failure chronicity: chronic Qualified Code(s): I50.32 - Chronic diastolic (congestive) heart failure (5) Atrial fibrillation Conclusion/Plan: Patient has chronic atrial fibrillation. The patient is currently in atrial fibrillation on presentation. The patient is on digoxin for rate and rhythm control. The patient is also on Coumadin but has a supratherapeutic INR at 4.9. The patient's Coumadin will be held and his INR today is 4.8. Continue to monitor and will continue to hold his coumadin until INR <3. Patient will be continued on his home dose of digoxin. Level is 0.9 and theraputic. No change in dig dose. Qualifiers: Atrial fibrillation type: chronic Qualified Code(s): I48.2 - Chronic atrial fibrillation (6) Hypertension Conclusion/Plan: Patient has a history of hypertension and is on lisinopril and Lasix for hypertension. Given that the patient is presenting with sepsis his Lasix will be held and lisinopril will be given carefully. Currently the patient's blood pressure is elevated but it will be monitored and if it does start to decrease we will need to hold any antihypertensive medications. Patient will be continued on IV fluids for sepsis for a total of 2 liters then stopped. Qualifiers: Hypertension type: essential hypertension Qualified Code(s): I10 - Essential (primary) hypertension (7) Elevated bilirubin Conclusion/Plan: Patient does have an elevated bilirubin and alk phos. The patient's bilirubin is 3.7 on admission and 4.2 today. Patient bilirubin has been elevated in the past. The patient does have some tenderness on examination of his abdomen on admit but today none and he ate his breakfast without any pain during or after. Although the patient's source of sepsis appears to be pneumonia, an abdominal ultrasound was done and he did not have biliary dilatation, common or otherwise. He has had a cholecystectomy. Patient may also have liver congestion due to diastolic heart failure. Continue to monitor patient's LFTs. Cannot due an MRCP bc of pacer in place. If I end up doing the CT of the chest tomorrow, consider added the abdomen to evaluate. (8) Venous stasis dermatitis of both lower extremities Impression: with possible superficial cellulitis of the right beckwith. Already on empiric abx to cover. Day #2. Elevate legs. Compress skin with kerlex and casey wrap and use SCD's to reduce edema.
[2017-07-05] MEDS: FAMOTIDINE 20 MG TABLET PO SCH (10:16)
[2017-07-05] MEDS: DIGOXIN 125 MCG TABLET PO SCH (10:16)
[2017-07-05] MEDS: CEFEPIME 2 GM in SODIUM CHLORIDE 0.9% MINIBAG 100 ML IV SCH ×2 (10:16→22:35)
[2017-07-05] MEDS: POLYETHYLENE GLYCOL 3350 17 GM PACKET PO SCH (10:16)
[2017-07-05] MEDS: SACCHAROMYCES BOULARDII 250 MG CAPSULE PO SCH ×2 (10:16→19:55)
[2017-07-05] MEDS: LISINOPRIL 5 MG TABLET PO SCH (10:16)
[2017-07-05] MEDS ORDERED: MAGNESIUM SULFATE 1 GM in SODIUM CHLORIDE 0.9% 50 ML IV ONE (10:45)
[2017-07-05] MEDS: SODIUM CHLORIDE FLUSH 0.9% 10 ML SYRINGE IVP PRN (22:35)
[2017-07-06] MEDS: VANCOMYCIN INJ 1.25 GM in SODIUM CHLORIDE 0.9% 250 ML IV SCH (00:50)
[2017-07-06] MEDS: SODIUM CHLORIDE FLUSH 0.9% 10 ML SYRINGE IVP SCH ×4 (01:11→19:38)
[2017-07-06] MEDS: SODIUM CHLORIDE FLUSH 0.9% 10 ML SYRINGE IVP PRN (01:11)
[2017-07-06 05:17] LABS: BASOPHILS % (AUTO) 0.2 %; EOSINOPHILS % (AUTO) 0.5 %; HGB - HEMOGLOBIN 12.5 g/dL (14.0-18.0); LYMPHOCYTES # (AUTO) 0.6 10^3/uL (1.5-3.5); LYMPHOCYTES % (AUTO) 7.3 %; MEAN CORPUSCULAR HEMOGLOBIN 32.4 pg (27.0-31.0); MEAN CORPUSCULAR HGB CONC 32.8 g/dL (32.0-36.0); MEAN PLATELET VOLUME 8.8 fL (7.4-11.4); MONOCYTES # (AUTO) 0.7 10^3/uL (0.0-1.0); MONOCYTES % (AUTO) 9.1 %; NEUTROPHILS # (AUTO) 6.6 10^3/uL (1.5-6.6); NEUTROPHILS % (AUTO) 82.9 %; PLT - PLATELET COUNT 95 10^3/uL (130-450); RED BLOOD COUNT 3.85 10^6/uL (4.70-6.10); RED CELL DISTRIBUTION WIDTH 14.5 % (12.0-15.0); WHITE BLOOD COUNT 7.9 x10^3/uL (4.8-10.8)
[2017-07-06 05:24] LABS: ALKALINE PHOSPHATASE 101 IU/L (42-121); ALT ALANINE AMINOTRANSFERASE 29 IU/L (10-60); AST ASPARTATE AMINOTRANSFERASE 39 IU/L (10-42); BILIRUBIN,TOTAL 2.2 mg/dL (0.2-1.0); BUN - BLOOD UREA NITROGEN 31 mg/dL (6-20); CALCIUM 8.6 mg/dL (8.5-10.3); CARBON DIOXIDE - CO2 31 mmol/L (21-32); CHLORIDE 98 mmol/L (101-111); CREATININE 1.2 mg/dL (0.6-1.2); GFR - MDRD 57 (>89); GLUCOSE 108 mg/dL (70-100); MAGNESIUM 1.9 mg/dL (1.7-2.8); SODIUM 135 mmol/L (135-145); TOTAL PROTEIN 6.1 g/dL (6.7-8.2)
[2017-07-06 05:33] LABS: INR 3.4 (0.8-1.2); PT - PROTHROMBIN TIME 36.4 secs (9.9-12.6)
--- NOTE | 2017-07-06 10:09 | XRAY Report ---
FRONTAL CHEST: 07/06/2017 CLINICAL INDICATION: Fever, hypoxia. COMPARISON: 07/04/2017. FINDINGS: Frontal view of the chest demonstrates a normal cardiac silhouette. Left subclavian dual chamber pacemaker is present. Left basilar atelectasis, right basilar infiltrate appears stable. Right effusion has increased slightly in size. No pneumothorax. IMPRESSION: SLIGHT INCREASE IN RIGHT EFFUSION. PERSISTENT BIBASILAR AIRSPACE DISEASE. TD: 07/06/2017 10:00
[2017-07-06] MEDS: CEFEPIME 2 GM in SODIUM CHLORIDE 0.9% MINIBAG 100 ML IV SCH ×2 (10:17→21:18)
--- NOTE | 2017-07-06 10:37 | PROVIDER PROGRESS NOTE ---
Subjective - Prog Note Date Prog Note Date: 07/06/17 Prog Note Time: 18:55 - Subjective Pt reports feeling: Improved Subjective: he's still a bit sob but less than admission/ Current Medications - Current Medications Current Medications: Active Medications Acetaminophen (Tylenol) 650 mg PO Q4HR PRN PRN Reason: Pain 1 to 4 Albuterol/Ipratropium (Duoneb) 3 ml INH RTQID PRN PRN Reason: Wheezing Digoxin (Lanoxin) 125 mcg PO DAILY [facility] Last Admin: 07/06/17 10:44 Dose: Not Given Famotidine (Pepcid) 20 mg PO DAILY [facility] Last Admin: 07/06/17 10:45 Dose: 20 mg Cefepime HCl 2 gm/ Sodium (Chloride) 100 mls @ 200 mls/hr IV Q12H [facility] Last Infusion: 07/06/17 15:58 Dose: Infused Lisinopril (Zestril) 2.5 mg PO DAILY [facility] Last Admin: 07/06/17 10:50 Dose: 2.5 mg Morphine Sulfate (Morphine) 2 mg IVP Q2H PRN PRN Reason: Pain 8 to 10 Ondansetron HCl (Zofran Inj) 4 mg IVP Q6HR PRN PRN Reason: Nausea / Vomiting Oxycodone HCl (Roxicodone) 5 mg PO Q4HR PRN PRN Reason: Pain 5 to 7 Oxycodone HCl (Roxicodone) 10 mg PO Q4HR PRN PRN Reason: Pain 8 to 10 Polyethylene Glycol (Miralax) 17 gm PO DAILY [facility] Last Admin: 07/06/17 11:13 Dose: Not Given Prochlorperazine Edisylate (Compazine Inj) 10 mg IVP Q6HR PRN PRN Reason: Nausea / Vomiting Saccharomyces Boulardii (Florastor) 250 mg PO BIDWM [facility] Last Admin: 07/06/17 17:40 Dose: 250 mg Sodium Chloride (Normal Saline Flush 0.9%) 10 ml IVP PRN PRN PRN Reason: NEEDED PER PROVIDER ORDERS Last Admin: 07/06/17 01:11 Dose: 10 ml Sodium Chloride (Normal Saline Flush 0.9%) 10 ml IVP 0100,0900,1700 [facility] Last Admin: 07/06/17 17:40 Dose: 10 ml Furosemide 60 mg PO DAILY 03/19/17 Lisinopril 2.5 mg PO DAILY 04/23/16 Potassium Chloride [K-Dur] 20 meq PO DAILY 04/23/16 Warfarin Sodium 2.5 mg PO DAILY PM 04/23/16 Digoxin 125 mcg PO DAILY 10/31/16 Multivitamin [Theragran] 1 each PO DAILY 07/05/17 Potassium Chloride 10 meq PO DAILY 07/05/17 Objective - Vital Signs/Intake & Output Reviewed Vital Signs: Yes Vital Signs: Vital Signs x48h Temp Pulse Resp BP Pulse Ox 07/06/17 10:05 58 L 16 96 07/06/17 09:58 96 07/06/17 07:54 36.8 C 59 L 19 121/58 L 81 L Intake & Output: Intake & Output 07/03/17 07/04/17 07/05/17 07/06/17 23:59 23:59 23:59 23:59 Intake Total 267.5 3182.000 530 Output Total 85 125 Balance 267.5 3097.000 405 - Objective General Appearance: positive: No acute distress, Alert, Other (stocky overweight elderly gentleman, deaf, appropriate) Eyes Bilateral: positive: PERRL, EOMI Neck: positive: No JVD. negative: Carotid bruit Respiratory: positive: Chest non-tender, Other (dull bases w diminished breath sound). negative: Wheezes, Rales, Rhonchi Cardiovascular: positive: Irregularly irregular. negative: Gallop/S4, Friction rub Abdomen: positive: Non-tender, No organomegaly, Nml bowel sounds Skin: positive: No rash, Warm Extremities: positive: Pedal edema Neurologic/Psychiatric: positive: Oriented x3, CN's nml (2-12) (except deaf), Motor nml - Lab Results Fish Bones: 07/06/17 04:35 07/06/17 04:35 Other Labs: Lab Results x24hrs 07/06/17 07/06/17 07/06/17 Range/Units 04:35 04:35 04:35 WBC (4.8-10.8) x10^3/uL RBC (4.70-6.10) 10^6/uL Hgb (14.0-18.0) g/dL Hct (42.0-52.0) % MCV (80.0-94.0) fL MCH (27.0-31.0) pg MCHC (32.0-36.0) g/dL RDW (12.0-15.0) % Plt Count (130-450) 10^3/uL MPV (7.4-11.4) fL Neut # (1.5-6.6) 10^3/uL Lymph # (1.5-3.5) 10^3/uL [place] # (0.0-1.0) 10^3/uL Eos # (0.0-0.7) 10^3/uL Baso # (0.0-0.1) 10^3/uL Absolute Nucleated RBC x10^3/uL Nucleated RBC % /100WBC PT 36.4 H (9.9-12.6) secs INR 3.4 H (0.8-1.2) Sodium 135 (135-145) mmol/L Potassium 4.1 (3.5-5.0) mmol/L Chloride 98 L (101-111) mmol/L Carbon Dioxide 31 (21-32) mmol/L Anion Gap 6.0 (6-13) BUN 31 H (6-20) mg/dL Creatinine 1.2 (0.6-1.2) mg/dL Estimated GFR (MDRD) 57 L (>89) Glucose 108 H (70-100) mg/dL Calcium 8.6 (8.5-10.3) mg/dL Ionized Calcium NO Phosphorus 3.0 (2.5-4.6) mg/dL Magnesium 1.9 (1.7-2.8) mg/dL Total Bilirubin 2.2 H (0.2-1.0) mg/dL AST 39 (10-42) IU/L ALT 29 (10-60) IU/L Alkaline Phosphatase 101 (42-121) IU/L Troponin I (<0.49) ng/mL B-Natriuretic Peptide 331 H (5-100) pg/mL Total Protein 6.1 L (6.7-8.2) g/dL Albumin 3.0 L (3.2-5.5) g/dL Globulin 3.1 (2.1-4.2) g/dL Albumin/Globulin Ratio 1.0 (1.0-2.2) 06/02/2207/05/17 07/05/17 Range/Units 04:35 16:43 11:01 WBC 7.9 (4.8-10.8) x10^3/uL RBC 3.85 L (4.70-6.10) 10^6/uL Hgb 12.5 L (14.0-18.0) g/dL Hct 38.1 L (42.0-52.0) % MCV 99.0 H (80.0-94.0) fL MCH 32.4 H (27.0-31.0) pg MCHC 32.8 (32.0-36.0) g/dL RDW 14.5 (12.0-15.0) % Plt Count 95 L (130-450) 10^3/uL MPV 8.8 (7.4-11.4) fL Neut # 6.6 (1.5-6.6) 10^3/uL Lymph # 0.6 L (1.5-3.5) 10^3/uL [place] # 0.7 (0.0-1.0) 10^3/uL Eos # 0.0 (0.0-0.7) 10^3/uL Baso # 0.0 (0.0-0.1) 10^3/uL Absolute Nucleated RBC 0.00 x10^3/uL Nucleated RBC % 0.0 /100WBC PT (9.9-12.6) secs INR (0.8-1.2) Sodium (135-145) mmol/L Potassium (3.5-5.0) mmol/L Chloride (101-111) mmol/L Carbon Dioxide (21-32) mmol/L Anion Gap (6-13) BUN (6-20) mg/dL Creatinine (0.6-1.2) mg/dL Estimated GFR (MDRD) (>89) Glucose (70-100) mg/dL Calcium (8.5-10.3) mg/dL Ionized Calcium Phosphorus (2.5-4.6) mg/dL Magnesium (1.7-2.8) mg/dL Total Bilirubin (0.2-1.0) mg/dL AST (10-42) IU/L ALT (10-60) IU/L Alkaline Phosphatase (42-121) IU/L Troponin I 0.27 0.25 (<0.49) ng/mL B-Natriuretic Peptide (5-100) pg/mL Total Protein (6.7-8.2) g/dL Albumin (3.2-5.5) g/dL Globulin (2.1-4.2) g/dL Albumin/Globulin Ratio (1.0-2.2) ABX Reporting Has patient been on IV antibiotics over the past 48 hours?: Yes Assessment/Plan - Problem List (1) Sepsis Impression: Resolved. No fever for 48 hours and WBC now normal. Patient presented to the emergency department with generalized weakness and chills. On presentation the patient was febrile with a temperature of 39.0, tachypneic with respiratory rate of 25, hypoxic requiring up to 3 L of oxygen with a leukocytosis of greater than 12 and source appears to be pneumonia. On exam I find that his leg may be contributing as well. Blood cultures are growing out gram negative BACILLI Plan: Started on broad-spectrum IV antibiotics with vancomycin s/p 2 doses and cefepime, Day #3. Vancomycin stopped bc it's GNR on blood culture. So beging treated for legs and lungs as cause of infection. Cefepime may not be covering legs but labs and lack of fever indicate current tx is good. Give IV fluids gently as the patient does have a history of diastolic heart failure Monitor closely for any deterioration but has improved quite a bit from admit to now. Qualifiers: Sepsis type: sepsis due to unspecified organism Qualified Code(s): A41.9 - Sepsis, unspecified organism (2) Acute respiratory failure with hypoxia Conclusion/Plan: Patient has a history of diastolic heart failure it is unclear if he has any history of asthma or COPD although he states he uses oxygen at night which he started recently. The patient does not appear wheezy on examination. The patient's chest x-ray does show bibasilar pneumonia. The patient is hypoxic on presentation with sepsis. Patient is requiring 3 L of oxygen. usually not on O2 at home. Plan: Treated with IV antibiotics for pneumonia, Day #3. On oxygen to maintain oxygen saturation of greater than 88%. This am he's down to 2 liters from 3 liters and is 96% Patient will be given nebulizer treatments as needed (3) CAP (community acquired pneumonia) Conclusion/Plan: The patient presented with sepsis and acute respiratory failure with hypoxia. Patient is requiring 3 L of oxygen to maintain good saturations. The patient does have a history of diastolic heart failure but no history of COPD. Patient has been hospitalized with pneumonia in the past. Given that he presented with sepsis will be treated with broad-spectrum IV antibiotics. Plan: IV vancomycin s/p 2 days and cefepime, today Day #3. Gram negative bacilli are not usually seen in CAP. So source of infection not completely clear. IV fluids Supplemental oxygen Nebs as needed The CXR is suspicious for neoplasm bc the left lung is collapsed. Repeat CXR today is stable right effusion and the same retrocardiac density c/w infiltrate. I will do CT scan of chest. Qualifiers: Laterality: unspecified laterality Qualified Code(s): J18.9 - Pneumonia, unspecified organism (4) Diastolic heart failure Conclusion/Plan: Patient has a history of diastolic heart failure as his previous echocardiogram showed moderate mitral and tricuspid regurgitation. Patient also appeared to have elevated right-sided heart pressures. The patient also has atrial fibrillation and hypertension all of which are likely contributing to diastolic heart failure. Patient does have lower extremity swelling but does not appear to have exacerbation of CHF. Patient's troponin appears to be stable and he has a BNP which is decreased from previous. The PRELIMINARY Echo report this am shows a reduced EF from 03/2015. He was 55-60% and is to 45-50%. 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 RVSP is 42mm Hg. He has severe LAE and moderate [place]. Plan: We will need to be careful with hydration even in the setting of sepsis as the patient does have diastolic heart failure. He will get a total of 2 liters of NS then IV lock. 07/04> I/O 267(+) 07/05> 3097 (+) 07/06>405 (+) so far BNP started at 312 and he's not much higher than 331. Serial troponins have a 0.11 and 0.21 then 0.25 then 0.27. Recheck today. Not compatible w ischemia and more CHF. lasix 40 mg IVP bid Qualifiers: Heart failure chronicity: chronic Qualified Code(s): I50.32 - Chronic diastolic (congestive) heart failure (5) Atrial fibrillation Conclusion/Plan: Patient has chronic atrial fibrillation. The patient is currently in atrial fibrillation on presentation. The patient is on digoxin for rate and rhythm control. The patient is also on Coumadin but has a supratherapeutic INR at 4.9. The patient's Coumadin was held again bc INR 07/05 was 4.8. Continue to monitor and will continue to hold his coumadin until INR <3. Today 3.4. Patient will be continued on his home dose of digoxin. Level is 0.9 and theraputic. No change in dig dose. Qualifiers: Atrial fibrillation type: chronic Qualified Code(s): I48.2 - Chronic atrial fibrillation (6) Hypertension Conclusion/Plan: Patient has a history of hypertension and is on lisinopril and Lasix for hypertension. Given that the patient is presenting with sepsis his Lasix will be held and lisinopril will be given carefully. Currently the patient's blood pressure is elevated but it will be monitored and if it does start to decrease we will need to hold any antihypertensive medications. Patient received IV fluids for sepsis for a total of 2 liters then stopped. Not on IVF right now. Qualifiers: Hypertension type: essential hypertension Qualified Code(s): I10 - Essential (primary) hypertension (7) Elevated bilirubin Conclusion/Plan: Patient does have an elevated bilirubin and alk phos. The patient's bilirubin is 3.7 on admission then 4.2 yestedray and 2.2 today. Patient bilirubin has been elevated in the past. The patient does have some tenderness on examination of his abdomen on admit but none since then and he has eaten his food without any pain during or after. Although the patient's source of sepsis appears to be pneumonia, an abdominal ultrasound was done and he did not have biliary dilatation, common or otherwise. He has had a cholecystectomy. Patient may also have liver congestion due to diastolic heart failure. Continue to monitor patient's LFTs. Cannot due an MRCP bc of pacer in place. (8) Venous stasis dermatitis of both lower extremities Impression: with possible superficial cellulitis of the right beck[place]. Already on empiric abx to cover. Day #3. Elevate legs. Compress skin with kerlex and casey wrap and use SCD's to reduce edema.
[2017-07-06] MEDS: DIGOXIN 125 MCG TABLET PO SCH ×2 (10:41→10:44)
[2017-07-06] MEDS: FAMOTIDINE 20 MG TABLET PO SCH (10:45)
[2017-07-06] MEDS: LISINOPRIL 5 MG TABLET PO SCH (10:50)
[2017-07-06] MEDS: SACCHAROMYCES BOULARDII 250 MG CAPSULE PO SCH ×2 (10:52→17:40)
[2017-07-06] MEDS: POLYETHYLENE GLYCOL 3350 17 GM PACKET PO SCH (11:13)
--- NOTE | 2017-07-06 17:17 | CT Report ---
EXAM: CT CHEST EXAM DATE: 07/06/2017 04:51 PM. CLINICAL HISTORY: Abnormal chest x-ray with collapsed left lung. COMPARISONS: 07/08/2013. TECHNIQUE: Routine helical CT imaging was performed through the chest. IV contrast: None. Reconstruct ions: Coronal and sagittal. In accordance with CT protocol optimization, one or more of the following dose reduction techniques w ere utilized for this exam: automated exposure control, adjustment of mA and/or KV based on patient s ize, or use of iterative reconstructive technique. FINDINGS: Lungs/Pleura: Moderate pleural effusions bilaterally with mild atelectasis. No consolidation. No pneu mothorax. Mediastinum: Aortic and coronary artery calcification. No adenopathy or masses. The heart and great v essels are normal. Bones: Ankylosing spondylitis. No compression fractures. Visualized Abdomen: Unremarkable. Other: None. IMPRESSION: Moderate bilateral pleural effusions with overlying mild atelectasis. No consolidation or large areas of volume loss. [facility] Referring Provider Line: [phone] SITE ID: [id number]
[2017-07-06] MEDS ORDERED: FUROSEMIDE 40 MG/4 ML VIAL IVP SCH (19:00)
[2017-07-07] MEDS: SODIUM CHLORIDE FLUSH 0.9% 10 ML SYRINGE IVP SCH ×3 (02:04→16:36)
[2017-07-07 04:55] LABS: BASOPHILS % (AUTO) 0.5 %; EOSINOPHILS # (AUTO) 0.1 10^3/uL (0.0-0.7); EOSINOPHILS % (AUTO) 0.9 %; HGB - HEMOGLOBIN 13.9 g/dL (14.0-18.0); LYMPHOCYTES # (AUTO) 0.8 10^3/uL (1.5-3.5); LYMPHOCYTES % (AUTO) 9.4 %; MEAN CORPUSCULAR HGB CONC 33.6 g/dL (32.0-36.0); MEAN CORPUSCULAR VOLUME 98.2 fL (80.0-94.0); MEAN PLATELET VOLUME 8.7 fL (7.4-11.4); MONOCYTES # (AUTO) 0.8 10^3/uL (0.0-1.0); MONOCYTES % (AUTO) 9.3 %; NEUTROPHILS # (AUTO) 6.6 10^3/uL (1.5-6.6); NEUTROPHILS % (AUTO) 79.9 %; PLT - PLATELET COUNT 120 10^3/uL (130-450); RED CELL DISTRIBUTION WIDTH 14.4 % (12.0-15.0); WHITE BLOOD COUNT 8.2 x10^3/uL (4.8-10.8)
[2017-07-07 04:59] LABS: INR 2.3 (0.8-1.2); PT - PROTHROMBIN TIME 25.3 secs (9.9-12.6)
[2017-07-07 05:13] LABS: ALBUMIN 3.4 g/dL (3.2-5.5); ALBUMIN/GLOBULIN RATIO 0.9 (1.0-2.2); ALKALINE PHOSPHATASE 114 IU/L (42-121); ALT ALANINE AMINOTRANSFERASE 35 IU/L (10-60); AST ASPARTATE AMINOTRANSFERASE 48 IU/L (10-42); BILIRUBIN,TOTAL 2.2 mg/dL (0.2-1.0); BUN - BLOOD UREA NITROGEN 34 mg/dL (6-20); CALCIUM 8.9 mg/dL (8.5-10.3); CARBON DIOXIDE - CO2 32 mmol/L (21-32); CHLORIDE 98 mmol/L (101-111); CREATININE 1.1 mg/dL (0.6-1.2); GFR - MDRD 63 (>89); GLUCOSE 102 mg/dL (70-100); MAGNESIUM 2.1 mg/dL (1.7-2.8); PHOSPHORUS 3.2 mg/dL (2.5-4.6); SODIUM 136 mmol/L (135-145)
[2017-07-07] MEDS ORDERED: WARFARIN 2.5 MG TABLET PO SCH (08:00)
--- NOTE | 2017-07-07 08:01 | PROVIDER PROGRESS NOTE ---
Subjective - Prog Note Date Prog Note Date: 07/07/17 Prog Note Time: 17:00 - Subjective Pt reports feeling: Improved Subjective: He was very angry this morning. Someone who put date of discharge on his whiteboard as being today. And he wants to be discharged today. He says that he has been here long enough. Today's had swollen legs and congestive heart failure for 10-15 years and no one has done anything to make him better so why with this make any difference. He said that he would rather go home and . Which then led to a long conversation about did he really mean that. That I understood that he may be angry at the moment but that by his statement of wanting to go home and to the intimate that he wanted hospice or palliative care. Daughter and were in the room. They were protesting that. Saying that they were not ready for that and that is a family they have not discussed any of that. I gave him some time to calm down by leaving the room and letting him talk to family members. As the day progressed his anger abated, and he said that he was in "a better mood" when I saw him this evening and he was willing to stay the night until tomorrow. So far we are having adequate diuresis. His legs are definitely shrinking. His face edema is improving. Current Medications - Current Medications Current Medications: Active Medications Acetaminophen (Tylenol) 650 mg PO Q4HR PRN PRN Reason: Pain 1 to 4 Albuterol/Ipratropium (Duoneb) 3 ml INH RTQID PRN PRN Reason: Wheezing Digoxin (Lanoxin) 125 mcg PO DAILY [facility] Last Admin: 07/07/17 09:37 Dose: 125 mcg Famotidine (Pepcid) 20 mg PO DAILY [facility] Last Admin: 07/07/17 09:36 Dose: 20 mg Furosemide (Lasix) 60 mg PO DAILY [facility] Last Admin: 07/07/17 09:42 Dose: 60 mg Cefepime HCl 2 gm/ Sodium (Chloride) 100 mls @ 200 mls/hr IV Q12H [facility] Last Admin: 07/07/17 21:30 Dose: 200 mls/hr Lisinopril (Zestril) 2.5 mg PO DAILY [facility] Last Admin: 07/07/17 09:36 Dose: 2.5 mg Morphine Sulfate (Morphine) 2 mg IVP Q2H PRN PRN Reason: Pain 8 to 10 Ondansetron HCl (Zofran Inj) 4 mg IVP Q6HR PRN PRN Reason: Nausea / Vomiting Oxycodone HCl (Roxicodone) 5 mg PO Q4HR PRN PRN Reason: Pain 5 to 7 Oxycodone HCl (Roxicodone) 10 mg PO Q4HR PRN PRN Reason: Pain 8 to 10 Polyethylene Glycol (Miralax) 17 gm PO DAILY [facility] Last Admin: 07/07/17 09:37 Dose: Not Given Prochlorperazine Edisylate (Compazine Inj) 10 mg IVP Q6HR PRN PRN Reason: Nausea / Vomiting Saccharomyces Boulardii (Florastor) 250 mg PO BIDWM [facility] Last Admin: 07/07/17 16:35 Dose: 250 mg Sodium Chloride (Normal Saline Flush 0.9%) 10 ml IVP PRN PRN PRN Reason: NEEDED PER PROVIDER ORDERS Last Admin: 07/07/17 10:48 Dose: 10 ml Sodium Chloride (Normal Saline Flush 0.9%) 10 ml IVP 0100,0900,1700 [facility] Last Admin: 07/08/17 01:00 Dose: 10 ml Warfarin Sodium (Coumadin) 2.5 mg PO QDWARFARIN [facility] Last Admin: 07/07/17 09:42 Dose: 2.5 mg Furosemide 60 mg PO DAILY 04/23/16 Lisinopril 2.5 mg PO DAILY 04/23/16 Potassium Chloride [K-Dur] 20 meq PO DAILY 04/23/16 Warfarin Sodium 2.5 mg PO DAILY PM 04/23/16 Digoxin 125 mcg PO DAILY 10/31/16 Multivitamin [Theragran] 1 each PO DAILY 07/05/17 Potassium Chloride 10 meq PO DAILY 07/05/17 Objective - Vital Signs/Intake & Output Reviewed Vital Signs: Yes Vital Signs: Vital Signs x48h Temp Pulse Resp BP Pulse Ox 07/07/17 04:37 36.6 C 62 20 120/76 97 Intake & Output: Intake & Output 07/04/17 07/05/17 07/06/17 07/07/17 23:59 23:59 23:59 23:59 Intake Total 267.5 3182.000 1380 Output Total 85 375 700 Balance 267.5 3097.000 1005 -700 - Objective General Appearance: positive: No acute distress, Alert, Other (Short statured elderly gentleman who when he speaks too quickly will start to get short of breath at rest. But quickly recuperates) Eyes Bilateral: positive: PERRL, EOMI ENT: positive: Other (Between yesterday and today his face is considerably thinner and I did not realize how much edema he was caring in his face and is much improved) Neck: positive: No JVD. negative: Stiff neck, Carotid bruit Respiratory: positive: Chest non-tender, No respiratory distress, Wheezes, Rales. negative: Rhonchi Cardiovascular: positive: Irregularly irregular, Systolic murmur. negative: Gallop/S4, Friction rub Abdomen: positive: Non-tender, Nml bowel sounds, No distention Extremities: positive: Pedal edema (His legs are wrapped with Kerlix and Cheng wrap. He insist on sitting up and not elevating his legs. SCDs not being used) Neurologic/Psychiatric: positive: Oriented x3, CN's nml (2-12). negative: Motor nml (Gait ataxia or imbalance with shuffling gait noted but no focal deficits) - Lab Results Fish Bones: 07/08/17 04:30 07/08/17 04:30 Other Labs: Lab Results x24hrs 07/07/17 07/07/17 07/07/17 Range/Units 04:35 04:35 04:35 WBC (4.8-10.8) x10^3/uL RBC (4.70-6.10) 10^6/uL Hgb (14.0-18.0) g/dL Hct (42.0-52.0) % MCV (80.0-94.0) fL MCH (27.0-31.0) pg MCHC (32.0-36.0) g/dL RDW (12.0-15.0) % Plt Count (130-450) 10^3/uL MPV (7.4-11.4) fL Neut # (Auto) (1.5-6.6) 10^3/uL Lymph # (Auto) (1.5-3.5) 10^3/uL Clarke # (Auto) (0.0-1.0) 10^3/uL Eos # (Auto) (0.0-0.7) 10^3/uL Baso # (Auto) (0.0-0.1) 10^3/uL Absolute Nucleated RBC x10^3/uL Nucleated RBC % /100WBC PT 25.3 H (9.9-12.6) secs INR 2.3 H (0.8-1.2) Sodium 136 (135-145) mmol/L Potassium 4.2 (3.5-5.0) mmol/L Chloride 98 L (101-111) mmol/L Carbon Dioxide 32 (21-32) mmol/L Anion Gap 6.0 (6-13) BUN 34 H (6-20) mg/dL Creatinine 1.1 (0.6-1.2) mg/dL Estimated GFR (MDRD) 63 L (>89) Glucose 102 H (70-100) mg/dL Calcium 8.9 (8.5-10.3) mg/dL Ionized Calcium NO Phosphorus 3.2 (2.5-4.6) mg/dL Magnesium 2.1 (1.7-2.8) mg/dL Total Bilirubin 2.2 H (0.2-1.0) mg/dL AST 48 H (10-42) IU/L ALT 35 (10-60) IU/L Alkaline Phosphatase 114 (42-121) IU/L B-Natriuretic Peptide 484 H (5-100) pg/mL Total Protein 7.0 (6.7-8.2) g/dL Albumin 3.4 (3.2-5.5) g/dL Globulin 3.6 (2.1-4.2) g/dL Albumin/Globulin Ratio 0.9 L (1.0-2.2) 07/07/17 Range/Units 04:35 WBC 8.2 (4.8-10.8) x10^3/uL RBC 4.20 L (4.70-6.10) 10^6/uL Hgb 13.9 L (14.0-18.0) g/dL Hct 41.2 L (42.0-52.0) % MCV 98.2 H (80.0-94.0) fL MCH 33.0 H (27.0-31.0) pg MCHC 33.6 (32.0-36.0) g/dL RDW 14.4 (12.0-15.0) % Plt Count 120 L (130-450) 10^3/uL MPV 8.7 (7.4-11.4) fL Neut # (Auto) 6.6 (1.5-6.6) 10^3/uL Lymph # (Auto) 0.8 L (1.5-3.5) 10^3/uL Clarke # (Auto) 0.8 (0.0-1.0) 10^3/uL Eos # (Auto) 0.1 (0.0-0.7) 10^3/uL Baso # (Auto) 0.0 (0.0-0.1) 10^3/uL Absolute Nucleated RBC 0.00 x10^3/uL Nucleated RBC % 0.0 /100WBC PT (9.9-12.6) secs INR (0.8-1.2) Sodium (135-145) mmol/L Potassium (3.5-5.0) mmol/L Chloride (101-111) mmol/L Carbon Dioxide (21-32) mmol/L Anion Gap (6-13) BUN (6-20) mg/dL Creatinine (0.6-1.2) mg/dL Estimated GFR (MDRD) (>89) Glucose (70-100) mg/dL Calcium (8.5-10.3) mg/dL Ionized Calcium Phosphorus (2.5-4.6) mg/dL Magnesium (1.7-2.8) mg/dL Total Bilirubin (0.2-1.0) mg/dL AST (10-42) IU/L ALT (10-60) IU/L Alkaline Phosphatase (42-121) IU/L B-Natriuretic Peptide (5-100) pg/mL Total Protein (6.7-8.2) g/dL Albumin (3.2-5.5) g/dL Globulin (2.1-4.2) g/dL Albumin/Globulin Ratio (1.0-2.2) ABX Reporting Has patient been on IV antibiotics over the past 48 hours?: Yes Assessment/Plan - Problem List (1) Acute on chronic systolic and diastolic heart failure, NYHA class 3 Impression: Patient has a history of diastolic heart failure as his previous echocardiogram showed moderate mitral and tricuspid regurgitation. Patient also appeared to have elevated right-sided heart pressures. The patient also has atrial fibrillation and hypertension all of which are likely contributing to diastolic heart failure. Patient does have lower extremity swelling but does not appear to have exacerbation of CHF. Patient's troponin appears to be stable and he has a BNP which is decreased from previous. The PRELIMINARY Echo report this am shows a reduced EF from 03/2015. He was 55-60% and is to 45-50%. 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 RVSP is 42mm Hg. He has severe LAE and moderate BARRON. So the diagnosis is more that of bilateral systolic heart failure than diastolic failure. Plan: We will need to be careful with hydration even in the setting of sepsis as the patient does have diastolic heart failure. He will get a total of 2 liters of NS then IV lock. Yesterday 40 mg lasix IV bid ordered. Change to po today. 07/04> I/O 267(+) 07/05> 3097 (+) 07/06>1005 (+) 07/07 this am he is (-)700 cc. BNP started at 312 on admission then 331 yesterday and 484 today. Serial troponins have a 0.11 and 0.21 then 0.25 then 0.27. Recheck today. Not compatible w ischemia and more CHF. Qualifiers: Heart failure chronicity: chronic Qualified Code(s): I50.32 - Chronic diastolic (congestive) heart failure (2) Atrial fibrillation Conclusion/Plan: Patient has chronic atrial fibrillation. The patient is currently in atrial fibrillation on presentation. The patient is on digoxin for rate and rhythm control. The patient is also on Coumadin but has a supratherapeutic INR at 4.9. The patient's Coumadin was held again bc INR 07/05 was 4.8. Continue to monitor and will continue to hold his coumadin until INR <3. Today 2.8. So resume it today. Patient will be continued on his home dose of digoxin. Level is 0.9 and theraputic. No change in dig dose. Qualifiers: Atrial fibrillation type: chronic Qualified Code(s): I48.2 - Chronic atrial fibrillation (3) Hypertension Conclusion/Plan: Patient has a history of hypertension and is on lisinopril and Lasix for hypertension. Given that the patient is presenting with sepsis his Lasix was held and lisinopril will be given carefully. Patient received IV fluids for sepsis for a total of 2 liters then stopped. Not on IVF since yesterday. So far BP ok at 118 systolic this am. Qualifiers: Hypertension type: essential hypertension Qualified Code(s): I10 - Essential (primary) hypertension (4) Elevated bilirubin Conclusion/Plan: Patient does have an elevated bilirubin and alk phos. The patient's bilirubin is 3.7 on admission then 4.2 on 07/05 and 2.2 on 07/06. Patient bilirubin has been elevated in the past. The patient does have some tenderness on examination of his abdomen on admit but none since then, he has eaten his food without any pain during or after. Although the patient's source of sepsis appears to be pneumonia, an abdominal ultrasound was done and he did not have biliary dilatation, common or otherwise. He has had a cholecystectomy. Patient may also have liver congestion due to right sided heart failure. Continue to monitor patient's LFTs. Cannot due an MRCP bc of pacer in place. (5) Venous stasis dermatitis of both lower extremities Impression: from his right sided heart failure and with possible superficial cellulitis of the right beckwith. Already on empiric abx to cover. Day #4. Elevate legs. Compress skin with kerlex and cheng wrap and use SCD's to reduce edema. (2) Sepsis Impression: Resolved. No fever for 48 hours and WBC now normal. Patient presented to the emergency department with generalized weakness and chills. On presentation the patient was febrile with a temperature of 39.0, tachypneic with respiratory rate of 25, hypoxic requiring up to 3 L of oxygen with a leukocytosis of greater than 12 and source appears to be pneumonia. On exam I find that his leg may be contributing as well. Blood cultures are growing out gram negative BACILLI Plan: Started on broad-spectrum IV antibiotics with vancomycin s/p 2 doses and cefepime, Day #4. Vancomycin stopped bc it's GNR on blood culture. So beeing treated for legs and lungs as cause of infection. Cefepime may not be covering legs but labs and lack of fever indicate current tx is good. He was given fluids gently as the patient does have a history of diastolic heart failure and those were stopped. Monitor closely for any deterioration but has improved quite a bit from admit to now. Qualifiers: Sepsis type: sepsis due to unspecified organism Qualified Code(s): A41.9 - Sepsis, unspecified organism (7) Acute respiratory failure with hypoxia Conclusion/Plan: Resolved. Patient has a history of diastolic heart failure. It is unclear if he has any history of asthma or COPD although he states he uses oxygen at night which he started recently. The patient does not appear wheezy on examination. The patient's chest x-ray on admission does show bibasilar pneumonia. The patient is hypoxic on presentation with sepsis. Patient is requiring 3 L of oxygen. usually not on O2 at home. The CT of the chest shows more of a CHF problem than a pneumonia but will complete therapy since he was septic on admisison. Plan: Treated with IV antibiotics for pneumonia, Day #4. On oxygen to maintain oxygen saturation of greater than 88%. This am he's down to 1.5 liters from 3 liters required on admission and is 97% Patient will be given nebulizer treatments as needed (8) CAP (community acquired pneumonia) Conclusion/Plan: The patient presented with sepsis and acute respiratory failure with hypoxia. Patient was requiring 3 L of oxygen on admission to maintain good saturations. The patient does have a history of diastolic heart failure but no history of COPD. Patient has been hospitalized with pneumonia in the past. Given that he presented with sepsis will be treated with broad-spectrum IV antibiotics. Plan: IV vancomycin s/p 2 days and cefepime, today Day #4. Gram negative bacilli that grew out from 07/05 are not usually seen in CAP. So source of infection not completely clear. Repeat cultures on 07/06 were negative at 24 hours. IV fluids have been stopped to avoid worsening heart failure. Supplemental oxygen continues but he is needing less and less. Nebs as needed The CXR is suspicious for neoplasm bc the left lung is collapsed. Repeat CXR yesterday was stable right effusion and the same retrocardiac density c/w infiltrate. I did a CT of the chest and he has no neoplasm, and really no pneumonia, but a moderate bilateral pleural effusions. So although we will complete therapy for pneumonia, must think his GNB are from another source for his sepsis. UA was negative. Qualifiers: Laterality: unspecified laterality Qualified Code(s): J18.9 - Pneumonia, unspecified organism
[2017-07-07] MEDS: SACCHAROMYCES BOULARDII 250 MG CAPSULE PO SCH ×2 (09:36→16:35)
[2017-07-07] MEDS: LISINOPRIL 5 MG TABLET PO SCH (09:36)
[2017-07-07] MEDS: FAMOTIDINE 20 MG TABLET PO SCH (09:36)
[2017-07-07] MEDS: DIGOXIN 125 MCG TABLET PO SCH (09:37)
[2017-07-07] MEDS: POLYETHYLENE GLYCOL 3350 17 GM PACKET PO SCH (09:37)
[2017-07-07] MEDS: FUROSEMIDE 20 MG TABLET PO SCH (09:42)
[2017-07-07] MEDS: SODIUM CHLORIDE FLUSH 0.9% 10 ML SYRINGE IVP PRN (10:48)
[2017-07-07] MEDS: CEFEPIME 2 GM in SODIUM CHLORIDE 0.9% MINIBAG 100 ML IV SCH ×2 (10:48→21:30)
[2017-07-08] MEDS: SODIUM CHLORIDE FLUSH 0.9% 10 ML SYRINGE IVP SCH ×2 (01:00→08:39)
[2017-07-08 05:04] LABS: BASOPHILS % (AUTO) 0.6 %; EOSINOPHILS # (AUTO) 0.1 10^3/uL (0.0-0.7); EOSINOPHILS % (AUTO) 1.7 %; HGB - HEMOGLOBIN 13.1 g/dL (14.0-18.0); INR 2.2 (0.8-1.2); LYMPHOCYTES # (AUTO) 0.8 10^3/uL (1.5-3.5); LYMPHOCYTES % (AUTO) 13.1 %; MEAN CORPUSCULAR HEMOGLOBIN 33.1 pg (27.0-31.0); MEAN CORPUSCULAR HGB CONC 33.7 g/dL (32.0-36.0); MEAN CORPUSCULAR VOLUME 98.1 fL (80.0-94.0); MONOCYTES # (AUTO) 0.7 10^3/uL (0.0-1.0); MONOCYTES % (AUTO) 11.3 %; NEUTROPHILS # (AUTO) 4.2 10^3/uL (1.5-6.6); NEUTROPHILS % (AUTO) 73.3 %; PLT - PLATELET COUNT 119 10^3/uL (130-450); PT - PROTHROMBIN TIME 24.3 secs (9.9-12.6); RED BLOOD COUNT 3.96 10^6/uL (4.70-6.10); RED CELL DISTRIBUTION WIDTH 14.3 % (12.0-15.0); WHITE BLOOD COUNT 5.8 x10^3/uL (4.8-10.8)
[2017-07-08 05:17] LABS: ALBUMIN 3.4 g/dL (3.2-5.5); ALKALINE PHOSPHATASE 119 IU/L (42-121); ALT ALANINE AMINOTRANSFERASE 32 IU/L (10-60); AST ASPARTATE AMINOTRANSFERASE 41 IU/L (10-42); BUN - BLOOD UREA NITROGEN 36 mg/dL (6-20); CALCIUM 9.1 mg/dL (8.5-10.3); CARBON DIOXIDE - CO2 32 mmol/L (21-32); CHLORIDE 98 mmol/L (101-111); CREATININE 1.3 mg/dL (0.6-1.2); GFR - MDRD 52 (>89); GLUCOSE 97 mg/dL (70-100); MAGNESIUM 1.9 mg/dL (1.7-2.8); PHOSPHORUS 3.4 mg/dL (2.5-4.6); SODIUM 138 mmol/L (135-145); TOTAL PROTEIN 6.9 g/dL (6.7-8.2)
[2017-07-08 08:37] VITALS: BP 129/67
[2017-07-08] MEDS: LISINOPRIL 5 MG TABLET PO SCH (08:38)
[2017-07-08] MEDS: DIGOXIN 125 MCG TABLET PO SCH (08:38)
[2017-07-08] MEDS: POLYETHYLENE GLYCOL 3350 17 GM PACKET PO SCH (08:39)
[2017-07-08] MEDS: FAMOTIDINE 20 MG TABLET PO SCH (08:39)
[2017-07-08] MEDS: SACCHAROMYCES BOULARDII 250 MG CAPSULE PO SCH (08:39)
[2017-07-08] MEDS: FUROSEMIDE 20 MG TABLET PO SCH (08:39)
[2017-07-08] MEDS: SODIUM CHLORIDE FLUSH 0.9% 10 ML SYRINGE IVP PRN (10:17)
[2017-07-08] MEDS: CEFEPIME 2 GM in SODIUM CHLORIDE 0.9% MINIBAG 100 ML IV SCH (10:17)
--- NOTE | 2017-07-08 10:17 | Discharge Plan ---
Discharge Plan Disposition: Home Health Service Condition: Good Prescriptions: Ciprofloxacin [Cipro] 250 mg PO Q12H #26 tablet Diet: Cardiac Activity Restrictions: Activity as Tolerated Shower Restrictions: No Driving Restrictions: Yes (no driving) Assistance Devices: Walker Instruction Topics: Ciprofloxacin tablets, Pneumonia, UTI Additional Instructions or Follow Up instructions: You were admitted to the hospital because you were having chills and were just feeling really lousy and weak. When you came to the emergency room we found you to have a very high breathing rate, had a high temperature, and you were requiring quite a bit of oxygen. You had pneumonia, a urinary tract infection, and severe right-sided heart failure. While here, we have treated you with antibiotics for the pneumonia and urinary tract infection. The pneumonia treatment is complete. However in a urinary tract infection most gentlemen need to have up to 3 weeks of therapy. In addition, your blood cultures grew out a very strange bacteria called Aeromonas salmonicida. This is bacteria is rarely seen in humans as has been sent out to a specialty lab and it may take a week or 2 to get the results back. Please see your primary care provider so that he can get those results and make sure you are on the right therapy. Because it is a send out lab, I am making an educated guess about what to treat you with. Sometimes my educated guesses are wrong. So Dr. Tate as to make sure you are on the right antibiotic. For your congestive heart failure we did an echocardiogram which is an ultrasound picture of your heart function. The left side of your heart is working for the most part. It has an ejection fraction of 45-50% and normal is 55-60%. What was really abnormal was the right side of your heart. Your tricuspid valve is leaking backwards. And your right muscle is not pumping as effectively. We think that it is your right heart trying to pump against the increased pressure of your lungs and your emphysema that is giving you reduced flow into your heart and mainly right-sided heart failure. The right-sided heart failure is what is making your legs quite swollen. Make sure that you elevate your legs every day when you sit down. That you wrap your legs with Cheng wrap to squeeze the water out of her legs. And make sure you take your water pill every day. You are already on home oxygen and that will be continued unchanged. A final topic that was brought up during your stay was how much you really hate being here. You do not like coming to the doctor. You do not like being admitted to the hospital. At one point you wanted to leave AGAINST MEDICAL ADVICE. Please talk to Dr. Tate and your family about how serious you are about declining treatment. There can be discussion with palliative care about reducing the amount of medicine or admissions, and there can be discussion about when you would eventually be a candidate for hospice. Once you were less upset and not angry you realize that you still wanted to be taken care of and stayed 1 more day. But I do encourage you to have advanced care planning talks with Dr. Tate as well as your family to make sure we do not do things you do not want us to do. Follow-Up Care: Home Health - RN (for wound care), Home Health - PT No Smoking: If you smoke, Please STOP! Call for help. Follow-up with: Denzel Tate MD [Primary Care Provider] -
--- NOTE | 2017-07-08 18:21 | ADVANCE CARE PLANNING NOTE ---
Advance Care Planning - Date/Time Date: 07/07/17 Time: 08:00 - Purpose of encounter Text: Patient states that he did rather go home and than stay here. I am ensuring that he is not trying to communicate a desire for hospice care - Parties in attendance Parties in attendance: , older daughter, patient, hospitalist - Decisional capacity Decisional capacity of: Patient is somewhat impaired because of memory loss in fatigue from dyspnea on exertion but he is alert, knows where he is, why he is here, and able to make his wishes known - Subjective/Patient's story Subjective/Patient's story: He feels that he has had congestive heart failure or some form of heart failure with leg edema for close to 10 years. 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 He gets on a riding lawnmower, occasionally does some work in the [employer] but has not been able to do that for a few weeks. He has been getting more more fatigued. More dyspneic on exertion. Increasing leg edema. He is not comfortable laying down at home and has been spending more more time in a reclining chair at home. He lives with his . One daughter lives in [place] and comes over regularly. Another daughter lives down the road and sees him regularly almost every day. Both daughters and his are very devoted to him. They have watched him start to fail over the last couple of years more and more. He still enjoys gardening. He has a greenhouse of which she puts plants in.His daughter comes over to help him with the greenhouse more more. In the last few days he has become very fatigued. More short of breath. Retired. Today he was so weak as he was trying to help his son-in-law thinks a golf cart that he slowly slid to the ground and he could not get back up. They were finally able to get him up with the family called EMS. Since being here he has been very unhappy. For instance he does not like that he has been given salted butter. He does not like the fact that the housekeeping crew, using a wet mount, came into his room to mop the floor while he was eating breakfast. He considers that the height of rudeness and that all "all that dust" ends up on his breakfast. He is also annoyed that he keeps on getting eggs and he does not like eggs. He does not like the noise that the hospital does not night. He does not like the fact that we are addressing chronic medical problems and "you have an fix things in 10 years why would you fix things now" - Objective/Medical story Objective/Medical Story: Patient is an 86-year-old gentleman with a past medical history significant for hypertension, atrial fibrillation on Coumadin, history of pacemaker and diastolic heart failure who presents to the emergency department with a chief complaint of chills and generalized weakness. The patient states that he has not been feeling his normal self since yesterday when he states in the afternoon he began noticing chills. He states that throughout the evening he felt increasingly weak. He states that today he was working on his golf cart with his son and when he got up from a sitting to standing position he felt extremely weak and could not stand anymore so slowly fell to the floor. He states from the floor he required help to get up. At this point his family decided to call 911. The patient denies having had any cough or shortness of air. The patient states that he has recently started using oxygen at night. He denies any chest pain, orthopnea, PND or increased lower extremity swelling. He also denies any abdominal pain, nausea, vomiting, diarrhea. He denies any focal neurologic deficits or neck stiffness. On arrival of EMS the patient was found to be hypoxic with oxygen saturation in the 80s. The patient was placed on oxygen and brought into the emergency department. Patient denies any headaches, blurred vision, runny nose, sore throat, nasal congestion, difficulty swallowing, urinary urgency, urinary frequency, dysuria, joint swelling, back pain, he does admit to increased erythema of his lower extremities. The patient denies any recent unintentional weight loss, night sweats or changes in his appetite. On presentation to the emergency department the patient was febrile with a temperature of 39.0, tachypneic with respiratory rate of 25 and hypoxic with O2 saturation of 86%. The patient's lab work revealed a leukocytosis of 12.6 but a normal lactic acid of 1.7. The patient did have a elevated bilirubin of 3.7 which was elevated from his baseline and a mildly elevated alk phos as well as a mildly elevated lipase. The patient's troponin was 0.11. Patient's urine was negative and his INR was found to be 4.9. The patient's chest x-ray revealed bibasilar consolidation with partial collapse of the left lower lobe and a right sided pleural effusion. Given these findings the patient was admitted to the [facility] for sepsis with acute respiratory failure with hypoxia secondary to pneumonia. Blood cultures were obtained in the emergency department and patient was placed on IV antibiotics. History - Past Medical History Cardiovascular: reports: Congestive heart failure (Diastolic), Hypertension, Atrial fibrillation Respiratory: reports: None Endocrine/Autoimmune: GI: reports: GERD : reports: Benign prostate hypertrophy, Incontinence, Frequency HEENT: reports: Chronic vision loss, Chronic hearing loss Psych: reports: None Musculoskeletal: reports: Osteoarthritis Derm: reports: None MRSA Hx?: No During this day he has been diuresed. Been given empiric antibiotics. Echocardiogram shows bilateral systolic dysfunction. The right-sided heart failure is relatively new. While he is improved with resolution of sepsis and resolution of acute respiratory failure with hypoxia, he still has significant right-sided heart failure, leg edema. We have been trying to still diurese him. He is also on empiric antibiotic therapy for bacteremia with Aeromonas salmonicida, - Goals of Care Goals of care determinations: He wants to be home as much as possible. He wants to avoid hospitalizations as much as possible. He wants to avoid interventions and doctor visits as much as possible. He wants to ride his lawnmower, plant in his greenhouse and garden, and work in his wood shop. More than anything he also wants to be with his family as much as possible. When he can no longer do those things he will start considering transition to possible hospice care - Plan Plan: At this time the patient was willing to reconsider leaving [facility]. He stayed in the hospital 1 more day. The meantime we will diurese him. I have asked the family to meet together to discuss these goals of care on the patient's part. To begin the beginning conversations of advanced care planning with regards to end-of-life issues, and consider filling out a POLST form. Although he still wants to be resuscitated with intubation, chest compressions, he does not know how long he would want to stay on life support. He says that he wants to defer that judgment to his daughters and his . I have asked him to please make those recommendations on his own recognizance. He will be great for his family to just back whatever decisions he makes. He said he will have to think about it. He also still wants to be able to return to the hospital when needed for treatment of infections, congestive heart failure, etc. - Code Status Code Status: Attempt Resuscitation - Time Spent on Advance Care Planning Time spent on advance care plannin minutes
--- NOTE | 2017-07-09 11:35 | DISCHARGE SUMMARY ---
Physician: Saray Pereira MD DATE OF ADMISSION: 07/04/2017 DATE OF DISCHARGE: 07/08/2017 PRIMARY CARE PROVIDER: Denzel Tate M.D. DIAGNOSES 1. Sepsis. 2. Community-acquired pneumonia. 3. Acute respiratory failure with hypoxia. 4. Acute on chronic systolic and diastolic congestive heart failure. 5. Chronic atrial fibrillation. 6. Hypertension. 7. Venous stasis dermatitis. 8. Bacteremia due to Aeromonas salmonicida. DISCHARGE MEDICATIONS 1. Ciprofloxacin 250 mg p.o. every 12 hours, #26. 2. Digoxin 0.125 mg daily. 3. Lasix 60 mg daily. 4. Lisinopril 2.5 mg daily. 5. Theragran 1 tablet daily. 6. Potassium 20 mEq daily. 7. Coumadin 2.5 mg daily. PRINCIPAL PROCEDURES 1. Abdomen ultrasound done for elevated liver enzymes with sepsis show a cholecystectomy, no biliary dilatation, liver cyst up to 1.7 cm. No hydronephrosis. A right pleural effusion. 2. Chest x-ray with bilateral basilar consolidation with partial collapse of the left lower lobe and small right pleural effusion. 3. Repeat chest x-ray to follow the bibasilar collapse showed slight increase in right effusion, persistent bibasilar airspace disease. 4. CT of the chest was done because of the left lower lobe collapse and CT of the chest shows moderate bilateral pleural effusions with overlying mild atelectasis. No consolidation or large areas of volume loss. 5. Echocardiogram with mild concentric left ventricular hypertrophy. Overall, left ventricular systolic function mildly impaired with an ejection fraction of 45% to 50%. Severe right ventricular enlargement. Right ventricle systolic function mildly impaired. Severe increase in the left atrial volume index. Moderate right atrial enlargement. Mild mitral regurgitation. Mild to moderate tricuspid regurgitation. Mildly abnormal right heart pressures with a right ventricular systolic pressure of 42 mmHg. 6. Blood cultures on 07/04/2017 grew out Aeromonas salmonicida. They have been sent to [facility] for further identification and sensitivities. 7. Blood cultures done 07/06/2017 negative. HOSPITAL COURSE: The patient is an 86-year-old man who has hypertension, chronic atrial fibrillation on Coumadin, history of a pacemaker and diastolic heart failure, who presents to the emergency room department with chief complaint of chills and generalized weakness. He has chronic venous stasis. Legs are always swollen and he always sits up for too long and does not elevate his legs. He has not been feeling his normal self since the day before admission. He began having chills. Throughout the evening, he felt increasingly weak. He was working on his golf cart with his son today when he got up from a sitting to a standing position and felt so weak that he could not stand anymore and he slowly fell to the floor. Once on the floor, he required help to get up. Family called 911. He denies any cough, shortness of breath. He was recently started on home O2 at 2 liters at night. He denies any chest pain, orthopnea, PND, or increased lower extremity swelling, but he has chronic venous stasis dermatitis. He also denies any abdominal pain, nausea, vomiting, diarrhea. No focal neurological deficits. On EMS arrival, the patient was found to be hypoxic with an O2 saturation of 80%. He was placed on oxygen and brought into the emergency room department. In the emergency room, he was febrile to 39, tachypneic with a respiratory rate of 25, hypoxic with an O2 saturation of 86%. He had a leukocytosis to 12.6, but a normal lactic acid of 1.7. Bilirubin was elevated at 3.7. Mild alkaline phosphatase elevation. Mild elevated lipase. Troponin 0.11. Urinalysis was negative for infection. INR was elevated at 4.9. Chest x-ray had bibasilar consolidation with partial collapse of the left lower lobe and right-sided pleural effusion. During his stay, he was treated as sepsis with the most likely source being community-acquired pneumonia. He appeared to have bibasilar consolidation on chest x-ray. Blood cultures were done. He was treated empirically with cefepime and was felt to have community-acquired pneumonia, the patient is immunocompromised. In addition to being treated for pneumonia, he was diuresed, because we felt that his acute respiratory failure was due not only to the bilateral pneumonia and sepsis, but also [id number] systolic and diastolic congestive heart failure, class III. Echocardiogram was done and showed worsening right ventricular dysfunction in the face of rising heart pressures. That diagnosis seems to be relatively new for him. He responded well to diuresis. We did try to keep his legs elevated, but the patient was insistent in sitting in a room chair and having his legs down. Wound consult from the medical ambulatory clinic was done. He was basically wrapping his legs to reduce edema, and keeping his legs elevated. He did have some small skin ulcers that were dime-sized and weeping on admission. Redness and heat of his legs with warmth of the skin of his anterior beckwith. Most of that improved by the time he was discharged, but again, the patient insisted on sitting upright and he still has significant edema that goes even above his knees into his thighs. The cefepime was felt to also cover any skin infection he may have from his legs. Atrial fibrillation was rate controlled. Coumadin was initially held because of the high INR. Coumadin was resumed when his INR dropped below 3. He will need outpatient followup with a repeat INR in the next few days. On the day of discharge, the lab called to say that he was growing a very unusual bacteria. Aeromonas salmonicida. It is a very slow growing bacteria and they would not be able to do sensitivities. In reading the literature, it is rarely seen in human beings and usually associated with fish populations. I explained all this to the patient and the family. I am at a loss to figure out what to do with this report. I opted to treat him on long-term quinolone, because of the bacteremia. I have asked him to followup with Dr. Tate, who may or may not send him for ID consult on the basis of this bug. Overall, the patient did improve in that his sepsis criteria resolved. He improved with hypoxia, less facial edema, but his legs are still quite swollen and he stubbornly insists on doing things his way. At one point, he became angry and did not want to be here anymore, because he felt like we were treating an unnecessary problem of his venous stasis. He demanded to go home, and stated that he would rather go home and , and that he never wanted to be here in the first place. This brought up the topic of palliative care, hospice evaluation, etc. I asked the patient point blank if he really meant this or was he just in a bad mood. He was angry and cranky, and while I could understand venting, I really wanted to honor his wishes if he really meant to want to transition to hospice services. His and daughter were in the room with him when he made all of these statements. They were able to calm him down by sitting down and having breakfast with him. Later on in the day, he shared with me that he was just in a bad mood and he really did mean what he said. He does not necessarily want to go home with hospice yet. However, I would think that palliative care would be a possible start for this elderly gentleman, who is starting to develop leg edema, right-sided heart failure. Really strongly recommended that he see Dr. Tate in the next week. He has multiple medical problems making him a complicated patient and should be seen on a regular basis. I strongly encouraged him to remain compliant with the medical regimen Dr. Tate recommends and with regular office visits. He is discharged in stable condition. PHYSICAL EXAMINATION VITAL SIGNS: Temperature is 36.3, pulse is 60, blood pressure is 129/67, respirations 20, 94% on 1.5 liters. GENERAL: He is a short statured stocky elderly gentleman, who looks his stated age. Slightly nasal tone of voice. HEENT: He had quite a bit of facial edema when he came into the hospital and much of that has resolved. Sclerae slightly muddy and he was a little bit icteric during his stay with the bilirubin, but that has resolved and bilirubin is 2.0 on the day of discharge. NECK: No JVD. LUNGS: Diminished breath sounds at the bases. He does have occasional crackles, but when I have him to do a deep cough, the crackles will clear. He is not tachypneic without any increased respiratory effort, unless he gets angry and starts to yell and then he gets quite dyspneic and will lose his breath. He gets dyspneic just trying to get up out of the chair and transfer to a wheelchair or transfer to go to the bathroom. HEART: He has an irregular rate and rhythm. Soft systolic murmur. ABDOMEN: Obese, protuberant, soft, nontender. No right upper quadrant pain. No rebound or guarding. EXTREMITIES: His legs are edematous from mid thigh down to his feet. 2+ edema with soft puffy skin. Some of the woody woody edema has resolved and his muscles of his shins and calves have improved somewhat. However, he still has pink to red anterior shins. Warm to touch. Much of the weeping and oozing has abated considerably, but he still has dime-sized loss of skin along the backsides of his calf and a couple on the anterior shins on the right leg, but none are overtly infected nor are they purulent. He walks with a shuffling gait. We did offer him senior living facility placement to see if he can get his strength up. He adamantly declined. As such, he is sent home with a walker. We have recommended home health for wound management, RN. Home health PT. He will be continued on his 2 liters nasal cannula oxygen. Greater than 30 minutes was spent in coordinating discharge. cc: Denzel Tate MD TD: 07/08/2017 18:33
== END 2017-07-08 13:05 | disposition home health service (06) | DRG 871 ==
LOC: EDUNIT# → ED 20:32 → MS3 21:38
PROVIDERS: ADMIT Internal Medicine; ATTEND Specialist
DX: A41.59 Other Gram-negative sepsis (principal); R79.1 Abnormal coagulation profile; R09.02 Hypoxemia; I50.9 Heart failure, unspecified; I48.91 Unspecified atrial fibrillation; J18.1 Lobar pneumonia, unspecified organism; J96.01 Acute respiratory failure with hypoxia; I50.43 Acute on chronic combined systolic (congestive) and diastolic (congestive) heart failure; L97.211 Non-pressure chronic ulcer of right calf limited to breakdown of skin; R65.20 Severe sepsis without septic shock; I83.012 Varicose veins of right lower extremity with ulcer of calf; I11.0 Hypertensive heart disease with heart failure; I48.2 Chronic atrial fibrillation; I08.1 Rheumatic disorders of both mitral and tricuspid valves; I50.810 Right heart failure, unspecified; D89.9 Disorder involving the immune mechanism, unspecified; J43.9 Emphysema, unspecified; H91.93 Unspecified hearing loss, bilateral; E66.01 Morbid (severe) obesity due to excess calories; N40.0 Benign prostatic hyperplasia without lower urinary tract symptoms; Z79.01 Long term (current) use of anticoagulants; Z95.0 Presence of cardiac pacemaker; Z90.49 Acquired absence of other specified parts of digestive tract; Z91.81 History of falling; Z79.899 Other long term (current) drug therapy; Z68.29 Body mass index [BMI] 29.0-29.9, adult
CPT/HCPCS: 36415; 51701; 71045; 71250; 76700; 80053; 80162; 81001; 81003; 81599; 83605; 83690; 83735; 83880; 84100; 84484; 85025; 85610; 87040; 87077; 87086; 87184; 93005; 93306; 99284; 99285

== ENCOUNTER 2017-07-29 08:42 | Outpatient (CLI) | payer MEDICARE, OTHER | END 2017-07-29 23:59 | disposition critical access hospital (66) | LOC: EMS 08:42 | PROVIDERS: ATTEND Surgery | DX: M25.512 Pain in left shoulder (principal); W18.39XA Other fall on same level, initial encounter | CPT/HCPCS: A0425; A0429 ==

== ENCOUNTER 2017-07-29 09:08 | Emergency (ER) | payer MEDICARE, OTHER ==
[2017-07-29] MEDS ORDERED: ACETAMINOPHEN 325 MG TABLET PO STA (09:15)
--- NOTE | 2017-07-29 09:18 | ED Physician Documentation ---
History of Present Illness - Stated complaint Stated Complaint: FALL/SHOULDER PX - Additonal information Additional information: hx from pt fell last night let go of grab bar to put on bathrobe and fell over no syncope no head injury no [employer] CP AP no hip injury or pain just pain to L shoulder with ROM meds unknown, medics did not bring list, reportedly coming with info, per EMR on coumadin Review of Systems Cardiac: denies: Chest pain / pressure Respiratory: denies: Dyspnea GI: denies: Abdominal Pain Musculoskeletal: reports: Joint pain. denies: Neck pain Neurologic: denies: Focal weakness, Numbness, Headache, Head injury PD PAST MEDICAL HISTORY - Past Medical History Cardiovascular: Congestive heart failure (Diastolic), Hypertension, Atrial fibrillation Respiratory: None Endocrine/Autoimmune:  GI: GERD : Benign prostate hypertrophy, Incontinence, Frequency HEENT: Chronic vision loss, Chronic hearing loss Psych: None Musculoskeletal: Osteoarthritis Derm: None - Past Surgical History Past Surgical History: Yes General: Cholecystectomy, Colonoscopy Ortho: Hip replacement, Carpal Tunnel surgery Cardiovascular: Pacemaker HEENT: Cataracts Derm:  - Present Medications Home Medications: Ambulatory Orders Medication Instructions Recorded Confirmed Furosemide 60 mg PO DAILY 04/23/16 07/05/17 Lisinopril 2.5 mg PO DAILY 04/23/16 07/05/17 Potassium Chloride [K-Dur] 20 meq PO DAILY 04/23/16 07/05/17 Warfarin Sodium 2.5 mg PO DAILY PM 04/23/16 07/05/17 Digoxin 125 mcg PO DAILY 10/31/16 07/05/17 Multivitamin [Theragran] 1 each PO DAILY 07/05/17 07/05/17 Potassium Chloride 10 meq PO DAILY 07/05/17 07/05/17 Ciprofloxacin [Cipro] 250 mg PO Q12H #26 tablet 07/08/17 - Allergies Allergies/Adverse Reactions: Allergies Allergy/AdvReac Type Severity Reaction Status Date / Time No Known Drug Allergies Allergy Verified 07/04/17 20:49 - Social History Does the pt smoke?: No Smoking Status: Never smoker Does the pt drink ETOH?: No Does the pt have substance abuse?: No - Immunizations Immunizations are current?: Yes - POLST Patient has POLST: No POLST Status: Full Code PD ED PE NORMAL - Vitals Vital signs reviewed: Yes - General General: Alert and oriented X 3 - HEENT HEENT: Atraumatic, PERRL - Neck Neck: No bony TTP - Cardiac Cardiac: RRR - Respiratory Respiratory: No respiratory distress, Clear bilaterally - Derm Derm: Normal color - Extremities Extremities: Other (L shoulder TTP and pain with ROM, bruiise to top of shoulder , + pulse, MSV intact) - Neuro Neuro: Alert and oriented X 3, No motor deficit, No sensory deficit Results - Vitals Vitals: Vital Signs - 24 hr 07/29/17 09:14 Temperature 36.8 C Heart Rate 64 Respiratory 16 Rate Blood Pressure 128/73 O2 Saturation 100 Oxygen O2 Source [Without Activity] Room air O2 Source Room air - Labs Labs: Laboratory Tests 07/29/17 09:30 Whole Blood INR 2.3 H - Rads (name of study) CTH Radiology: See rad report (no acute) shoulder Radiology: See rad report (no acute) PD MEDICAL DECISION MAKING - Sepsis Event Vital Signs: Vital Signs - 24 hr 07/29/17 09:14 Temperature 36.8 C Heart Rate 64 Respiratory 16 Rate Blood Pressure 128/73 O2 Saturation 100 Oxygen O2 Source [Without Activity] Room air O2 Source Room air Departure - Departure Disposition: 01 Home, Self Care Clinical Impression: Shoulder sprain Qualifiers: Encounter type: initial encounter Shoulder sprain type: unspecified sprain Laterality: left Qualified Code(s): S43.402A - Unspecified sprain of left shoulder joint, initial encounter Condition: Good Instructions: ED Sprain Shoulder Follow-Up: Denzel Tate MD [Primary Care Provider] - Comments: The CT of the head does not show any bleeding form being on coumadin The xray of the shoulder does not show any fractures or dislocations It looks like this is a shoulder sprain Recommend tylenol for the pain Ice for 20 minutes at a time will help too. Wear the sling as needed for comfort but be sure to do some range of motion with the shoulder every day to prevent scar tissue and a "frozen joint" If not improving in 2 weeks pleaase follow up with your PMD for a recheck and consideration of further imaging
--- NOTE | 2017-07-29 10:19 | XRAY Report ---
Procedure Date: 07/29/2017 Accession Number: [id number] / [id number] Procedure: XR - Shoulder 3 View LT CPT Code: FULL RESULT: EXAM: LEFT SHOULDER RADIOGRAPHY EXAM DATE: 07/29/2017 09:58 AM. CLINICAL HISTORY: Fell. COMPARISON: None. TECHNIQUE: 3 views. FINDINGS: Bones: No fracture or bone lesion. Joints: Moderate acromioclavicular joint DJD. Soft tissues: The visualized hemithorax is unremarkable. No soft tissue swelling. Cardiac pacing device is present. IMPRESSION: No acute osseous abnormality. RADIA
--- NOTE | 2017-07-29 10:22 | CT Report ---
Procedure Date: 07/29/2017 Accession Number: [id number] / [id number] Procedure: CT - Head W/O CPT Code: FULL RESULT: EXAM: CT HEAD EXAM DATE: 07/29/2017 10:07 AM. CLINICAL HISTORY: Fell on coumadin. COMPARISON: CT head 02/15/2015. TECHNIQUE: Multiaxial CT images were obtained from the foramen magnum to the vertex. Reformats: Coronal. IV contrast: None. In accordance with CT protocol optimization, one or more of the following dose reduction techniques were utilized for this exam: automated exposure control, adjustment of mA and/or KV based on patient size, or use of iterative reconstructive technique. FINDINGS: Parenchyma: No intraparenchymal hemorrhage. No evidence of mass, midline shift, or CT findings of infarction. Jason-white differentiation is distinct. Moderate patchy hypodensity in the periventricular white matter and centrum semiovale, nonspecific but probably chronic microvascular ischemic change. Extraaxial Spaces: Normal for age. No subdural or epidural collections identified. Ventricles: Normal in size and position accounting for mild generalized cerebral and cerebellar volume loss. Sinuses and Orbits: Imaged paranasal sinuses, orbits, and mastoids show no significant abnormality. Bones: No evidence of fracture or calvarial defect. Other: Intracranial internal carotid and vertebral artery calcifications are present. IMPRESSION: 1. No definite acute intracranial abnormality. 2. Chronic atrophic and probable microvascular ischemic changes as noted above. RADIA
[2017-07-29 11:18] VITALS: BP 106/70
== END 2017-07-29 11:58 | disposition home or self-care (01) ==
LOC: EDUNIT# → ED 09:08
DX: S43.402A Unspecified sprain of left shoulder joint, initial encounter (principal); W18.30XA Fall on same level, unspecified, initial encounter; I11.0 Hypertensive heart disease with heart failure; I50.30 Unspecified diastolic (congestive) heart failure; I48.91 Unspecified atrial fibrillation; Z79.01 Long term (current) use of anticoagulants; G31.9 Degenerative disease of nervous system, unspecified; Z96.649 Presence of unspecified artificial hip joint; Z95.0 Presence of cardiac pacemaker
CPT/HCPCS: 70450; 73030; 85610; 99283; A9270

== ENCOUNTER 2017-10-04 20:40 | Outpatient (CLI) | payer MEDICARE, OTHER | END 2017-10-04 20:41 | disposition critical access hospital (66) | LOC: EMS 20:40 | PROVIDERS: ATTEND Surgery | DX: S09.90XA Unspecified injury of head, initial encounter (principal); R53.1 Weakness; W18.30XA Fall on same level, unspecified, initial encounter; W22.8XXA Striking against or struck by other objects, initial encounter; Y92.000 Kitchen of unspecified non-institutional (private) residence as the place of occurrence of the external cause | CPT/HCPCS: A0425; A0429 ==

== ENCOUNTER 2017-10-04 20:49 | Emergency (ER) | payer MEDICARE, OTHER ==
--- NOTE | 2017-10-04 20:50 | ED Physician Documentation ---
PD HPI HEAD INJURY - Stated complaint Stated Complaint: FELL - HIT HEAD - History obtained from History obtained from: Patient, EMS - History of Present Illness Mechanism of head injury: Fell Where head injury occurred: Home Timing - onset: How many minutes ago (approximately 20-30 minutes HOME LIGHTING ADVISER) Pain level max: 0 Pain level now: 0 Location of injury: Right, Front Quality of pain: Other (denies pain) Associated symptoms: No: LOC, AMS, Amnesia, Nausea / vomiting, Neck pain Contributing factors: Anticoagulated (warfarin) Similar symptoms before: Has not had sx before Recently seen: Not recently seen - Additional information Additional information: was walking from bathroom to another room to eat dinner; he had just gotten up from the toilet. He experienced loss of balance and generalized weakness, and fell. tried to keep him from falling but didn't have the strength to do so. He denies LOC, denies any pain. He is on warfarin and has significant right facial swelling. BIBA Review of Systems Eyes: reports: Reviewed and negative Ears: denies: Ear pain, Tinnitus/ringing Nose: reports: Epistaxis (resolved HOME LIGHTING ADVISER) Cardiac: reports: Reviewed and negative Respiratory: reports: Reviewed and negative GI: reports: Reviewed and negative Musculoskeletal: reports: Reviewed and negative Neurologic: reports: Generalized weakness. denies: Focal weakness, Numbness, Confused, Altered mental status, Headache, LOC PD PAST MEDICAL HISTORY - Past Medical History Past Medical History: Yes - Past Surgical History Past Surgical History: Yes Cardiovascular: Pacemaker - Present Medications Home Medications: Ambulatory Orders Medication Instructions Recorded Confirmed Furosemide 60 mg PO DAILY 04/23/16 07/05/17 Lisinopril 2.5 mg PO DAILY 04/23/16 07/05/17 Potassium Chloride [K-Dur] 20 meq PO DAILY 04/23/16 07/05/17 Warfarin Sodium 2.5 mg PO DAILY PM 04/23/16 07/05/17 Digoxin 125 mcg PO DAILY 10/31/16 07/05/17 Multivitamin [Theragran] 1 each PO DAILY 07/05/17 07/05/17 Potassium Chloride 10 meq PO DAILY 07/05/17 07/05/17 Ciprofloxacin [Cipro] 250 mg PO Q12H #26 tablet 07/08/17 - Allergies Allergies/Adverse Reactions: Allergies Allergy/AdvReac Type Severity Reaction Status Date / Time No Known Drug Allergies Allergy Verified 10/04/17 20:56 PD ED PE NORMAL - Vitals Vital signs reviewed: Yes - General General: Alert and oriented X 3, No acute distress, Well developed/nourished - HEENT HEENT: PERRL, EOMI, Moist mucous membranes - Neck Neck: No bony TTP - Cardiac Cardiac: RRR, No murmur - Respiratory Respiratory: No respiratory distress, Clear bilaterally - Abdomen Abdomen: Soft, Non tender - Extremities Extremities: No tenderness to palpate, Normal ROM s pain, No edema - Neuro Neuro: Alert and oriented X 3, running specialist 2-12 intact, No motor deficit, No sensory deficit, Normal speech Eye Opening: Spontaneous Motor: Obeys Commands Verbal: Oriented GCS Score: 15 PD ED PE EXPANDED - HEENT HEENT: Other (right periorbital edema and echymosis, predominantly infraorbital. Bilateral nares with scant dried blood, no septal hematoma. Mild infraorbital tenderness. abrasion to right forehead) Results - Vitals Vitals: Vital Signs - 24 hr 10/04/17 10/04/17 10/04/17 20:53 23:05 23:37 Temperature 36.2 C L 36.8 C Heart Rate 58 L 60 61 Respiratory 16 21 12 Rate Blood Pressure 105/84 H 103/60 95/59 L O2 Saturation 97 95 97 10/05/17 10/05/17 00:30 01:25 Temperature Heart Rate 60 60 Respiratory 12 13 Rate Blood Pressure 98/60 109/55 L O2 Saturation 94 96 Oxygen O2 Source [] Room air O2 Source Room air - Labs Labs: Laboratory Tests 10/04/17 10/04/17 10/04/17 20:55 20:55 20:55 WBC 5.7 RBC 3.99 L Hgb 13.1 L Hct 39.5 L MCV 99.1 H MCH 33.0 H MCHC 33.3 RDW 15.2 H Plt Count 145 MPV 8.2 Neut # (Auto) 4.3 Lymph # (Auto) 0.7 L [place] # (Auto) 0.6 Eos # (Auto) 0.1 Baso # (Auto) 0.0 Absolute Nucleated RBC 0.00 Nucleated RBC % 0.0 PT 37.3 H INR 3.5 H APTT 39.9 H Sodium 138 Potassium 4.5 Chloride 97 L Carbon Dioxide 32 Anion Gap 9.0 BUN 40 H Creatinine 1.3 H Estimated GFR (MDRD) 52 L Glucose 98 Calcium 9.5 Urine Color Urine Clarity Urine pH Ur Specific [place] Urine Protein Urine Glucose (UA) Urine Ketones Urine Occult Blood Urine Nitrite Urine Bilirubin Urine Urobilinogen Ur Leukocyte Esterase Ur Microscopic Review Urine Culture Comments 10/05/17 00:15 WBC RBC Hgb Hct MCV MCH MCHC RDW Plt Count MPV Neut # (Auto) Lymph # (Auto) [place] # (Auto) Eos # (Auto) Baso # (Auto) Absolute Nucleated RBC Nucleated RBC % PT INR APTT Sodium Potassium Chloride Carbon Dioxide Anion Gap BUN Creatinine Estimated GFR (MDRD) Glucose Calcium Urine Color YELLOW Urine Clarity CLEAR Urine pH 5.5 Ur Specific [place] 1.020 Urine Protein NEGATIVE Urine Glucose (UA) NEGATIVE Urine Ketones NEGATIVE Urine Occult Blood NEGATIVE Urine Nitrite NEGATIVE Urine Bilirubin NEGATIVE Urine Urobilinogen 0.2 (NORMAL) Ur Leukocyte Esterase NEGATIVE Ur Microscopic Review NOT INDICATED Urine Culture Comments NOT INDICATED - Rads (name of study) CT head Radiology: Prelim report reviewed, See rad report CT facial bones Radiology: Prelim report reviewed, See rad report PD MEDICAL DECISION MAKING - ED course Complexity details: reviewed results, re-evaluated patient, considered differential, d/w patient ED course: D/W Dr. Yañez (on-call ophthalmology at [facility]) and Dr. Velasquez (craniofacial surgery [facility]). Plan is d/c patient home, f/u with ophthalmology, return if worse in any way. On initial exam, and subsequent reevaluations, he denied having any significant pain/discomfort, and denied any new visual problems (says sometimes double vision, but this is decidedly not new). Patient is comfortable going home (he requests discharge home); he has a local food tester and will pursue f/u with them. - Sepsis Event Vital Signs: Vital Signs - 24 hr 10/04/17 10/04/17 10/04/17 20:53 23:05 23:37 Temperature 36.2 C L 36.8 C Heart Rate 58 L 60 61 Respiratory 16 21 12 Rate Blood Pressure 105/84 H 103/60 95/59 L O2 Saturation 97 95 97 10/05/17 10/05/17 00:30 01:25 Temperature Heart Rate 60 60 Respiratory 12 13 Rate Blood Pressure 98/60 109/55 L O2 Saturation 94 96 Oxygen O2 Source [] Room air O2 Source Room air Departure - Departure Disposition: 01 Home, Self Care Clinical Impression: Fall, Periorbital hematoma of right eye, Orbital fracture Condition: Good Instructions: ED Contusion Eye, ED Fx Face, ED Contusion Face Sleep Mon, ED Mechanical Fall Comments: Follow up with your food tester: call in the morning to arrange for next available appointment. Discharge Date/Time: 10/05/17 02:23
[2017-10-04 21:10] LABS: BASOPHILS % (AUTO) 0.5 %; EOSINOPHILS # (AUTO) 0.1 10^3/uL (0.0-0.7); EOSINOPHILS % (AUTO) 1.1 %; HGB - HEMOGLOBIN 13.1 g/dL (14.0-18.0); LYMPHOCYTES # (AUTO) 0.7 10^3/uL (1.5-3.5); LYMPHOCYTES % (AUTO) 12.4 %; MEAN CORPUSCULAR HGB CONC 33.3 g/dL (32.0-36.0); MEAN CORPUSCULAR VOLUME 99.1 fL (80.0-94.0); MEAN PLATELET VOLUME 8.2 fL (7.4-11.4); MONOCYTES # (AUTO) 0.6 10^3/uL (0.0-1.0); MONOCYTES % (AUTO) 10.3 %; NEUTROPHILS # (AUTO) 4.3 10^3/uL (1.5-6.6); NEUTROPHILS % (AUTO) 75.7 %; PLT - PLATELET COUNT 145 10^3/uL (130-450); RED BLOOD COUNT 3.99 10^6/uL (4.70-6.10); RED CELL DISTRIBUTION WIDTH 15.2 % (12.0-15.0); WHITE BLOOD COUNT 5.7 x10^3/uL (4.8-10.8)
[2017-10-04 21:14] LABS: CALCIUM 9.5 mg/dL (8.5-10.3); CREATININE 1.3 mg/dL (0.6-1.2)
[2017-10-04 21:15] LABS: INR 3.5 (0.8-1.2); PT - PROTHROMBIN TIME 37.3 secs (9.9-12.6)
--- NOTE | 2017-10-04 22:17 | CT Report ---
Reason: fall, right periorbital swelling Procedure Date: 10/04/2017 Accession Number: [id number] / [id number] Procedure: CT - Facial Bones W/O CPT Code: FULL RESULT: EXAM: CT MAXILLOFACIAL WITHOUT CONTRAST. EXAM DATE: 10/04/2017 09:23 PM. CLINICAL HISTORY: Fall, right periorbital swelling. COMPARISONS: None. TECHNIQUE: Thin-section axial images were acquired of the face without contrast. Post-processing: Coronal and sagittal reformats. Other: None. In accordance with CT protocol optimization, one or more of the following dose reduction techniques were utilized for this exam: automated exposure control, adjustment of mA and/or KV based on patient size, or use of iterative reconstructive technique. FINDINGS: Soft Tissue: A right malar soft tissue contusion is noted. Orbits: Right-sided proptosis is present due to an extraconal hematoma in the mesial and inferior aspects of the extraconal space. Right-sided proptosis is present without evidence of globe rupture. Post surgical changes from cataract extractions are noted in the globes bilaterally. There is no herniation of the extraocular muscles through the fracture defects. Bones: There is an acute fracture of the medial wall of the right orbit with an additional suspected acute nondisplaced fracture of the inferior wall. No other acute facial bone fracture is identified. Temporomandibular Joints: The temporomandibular joints are symmetric and normally located. Sinuses: Small volume hemorrhage is present in the right ethmoid sinus. There is mild mucosal thickening in the bilateral maxillary and left ethmoid sinuses. The mastoid sinuses are not opacified. IMPRESSION: 1. Acute fracture of the medial wall of the right orbit. 2. Suspect additional acute nondisplaced fracture of the inferior wall of the right orbit. 3. Extraconal hematoma in the right orbit causes proptosis. 4. No evidence of globe rupture. RADIA
--- NOTE | 2017-10-04 22:19 | CT Report ---
Reason: fall, head injury, on warfarin Procedure Date: 10/04/2017 Accession Number: [id number] / [id number] Procedure: CT - Head W/O CPT Code: FULL RESULT: EXAM: CT HEAD WITHOUT CONTRAST. EXAM DATE: 10/04/2017 09:25 PM. CLINICAL HISTORY: Head pain, fall, on anticoagulation. COMPARISON: Brain CT from 07/29/2017. TECHNIQUE: Multiaxial CT images were obtained from the foramen magnum to the vertex. Reformats: Coronal. IV contrast: None. In accordance with CT protocol optimization, one or more of the following dose reduction techniques were utilized for this exam: automated exposure control, adjustment of mA and/or KV based on patient size, or use of iterative reconstructive technique. FINDINGS: Parenchyma: No intraparenchymal hemorrhage. No evidence of mass, midline shift, or CT findings of acute infarction. Left parietal encephalomalacia is again noted, possibly representing an old infarct. Jason-white differentiation is distinct. Mild diffuse chronic microangiopathic white matter changes are evident. Extraaxial Spaces: Normal for age. No subdural or epidural collections identified. Ventricles: The ventricles and cortical sulci are moderately enlarged, consistent with age-related tissue loss. Sinuses and orbits: Deferred to the accompanying facial bone CT exam. Bones: No evidence of fracture or calvarial defect. Other: Mild intracranial atherosclerosis is noted. IMPRESSION: No acute intracranial process. RADIA
[2017-10-05 00:33] LABS: BILIRUBIN,URINE NEGATIVE (NEGATIVE); GLUCOSE, URINE (UA) NEGATIVE (NEGATIVE); KETONES,URINE (UA) NEGATIVE (NEGATIVE); LEUKOCYTE ESTERASE, URINE NEGATIVE (NEGATIVE); NITRITE,URINE NEGATIVE (NEGATIVE); OCCULT BLOOD,URINE NEGATIVE (NEGATIVE); PH,URINE 5.5 PH (5.0-7.5); PROTEIN,URINE NEGATIVE (NEGATIVE); UROBILINOGEN,URINE 0.2 (NORMAL) E.U./dL (NORMAL)
[2017-10-05 00:35] LABS: CLARITY,URINE CLEAR (CLEAR)
[2017-10-05 01:26] VITALS: BP 109/55
== END 2017-10-05 02:23 | disposition home or self-care (01) ==
LOC: EDUNIT# → ED 20:49
DX: S02.81XA Fracture of other specified skull and facial bones, right side, initial encounter for closed fracture (principal); S00.11XA Contusion of right eyelid and periocular area, initial encounter; S00.81XA Abrasion of other part of head, initial encounter; H05.20 Unspecified exophthalmos; Z95.0 Presence of cardiac pacemaker; Z79.01 Long term (current) use of anticoagulants; W18.30XA Fall on same level, unspecified, initial encounter; Y93.01 Activity, walking, marching and hiking; Y92.009 Unspecified place in unspecified non-institutional (private) residence as the place of occurrence of the external cause
CPT/HCPCS: 36415; 70450; 70486; 80048; 81001; 81003; 85025; 85610; 85730; 87086; 99282; 99284

== ENCOUNTER 2017-10-26 17:40 | Outpatient (CLI) | payer MEDICARE, OTHER ==
--- NOTE | 2017-10-26 17:53 | CONSULTATION NOTE ---
Palliative Care Consultation - Referral Referring Provider: Dr Tate Time of Visit: 10/26/2017. 10:45 - 12:30 Referral setting: Home (Setting due to taxing and considerable effort required to leave the home due to declining function and limited mobility and frequent falls secondary to increasing dementia.) Referral Reason: Decreasing cognition and functionality - Information Sources Records reviewed: Previous records reviewed History/Review of Systems obtained from: Patient, Family Exam limitations: Clinical condition (perseveration, cognitive decline) - History of Present Illness Brief History of Present Illness: Thank you, Dr. Tate, for asking the palliative care consult service to be involved in the care of your patient. I am asked to provide support regarding a declining functional status, increased family caregiver burden, and goals of care. -87 year old male with CHF, atrial fibrillation with pacemaker, dependent edema, and steadily decreasing functionality and balance with frequent falls. [place] his as his sole caregiver, but with supportive family members living nearby. 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 -Over the past year the patient's cognition and functionality has been declining. -He was hospitalized 07/04/17 - 07/08/17 for sepsis with the most likely source community acquired pneumonia. -His culture grew a very unusual bacteria, Aeromonas salmonicida, which is usually associated with fish populations. -This was explained to his family, he was discharged on a long-term ciprofloxacin and was to have followed up with Dr Tate who may or may not decide to refer him to ID for consultation. -He has continued to decline, has gone to the ER on 10/04, 07/29 for falls. -He has been seeing his PCP for his CHF and edema, and ulcers in his lower extremities. -He is being followed by Home Health Nursing for monitoring edema, wound care on LEs and buttocks. -He is also receiving Home Health Physical Therapy for strengthening. -Patient and family are referred to the Palliative Care service because the patient is weakening and failing and his is having increasing trouble caring for him. Medical/Surgical History - Past Medical History Cardiovascular: reports: Congestive heart failure, Hypertension, Atrial fibrillation Respiratory: reports: None, Other (YOSEF, uses oxygen at night, 2L) Neuro: Dementia Neuro: reports: None Endocrine/Autoimmune: GI: reports: GERD : reports: Benign prostate hypertrophy, Incontinence, Frequency HEENT: reports: Chronic vision loss, Chronic hearing loss Psych: reports: None Musculoskeletal: reports: Osteoarthritis Derm: reports: None MRSA Hx?: No - Past Surgical History General: reports: Cholecystectomy, Colonoscopy Ortho: reports: Hip replacement, Carpal Tunnel surgery Cardiovascular: reports: Pacemaker HEENT: reports: Cataracts Derm: - Substance History Tobacco Details: Other (No tobacco use, no alcohol) Social History - Living Situation Living arrangement: At home Living Situation: With spouse/s.o. Support System: The patient has lived on [facility] since the age of 9. His was [place] the [place]. They have been 69 years, with 5 living adult children. He is retired from working for the [employer]. Their two sons live across the road from their [place]. They have 3 daughters: Connie lives in [place], Tamela lives near [facility], and Olive on the [facility] between [facility]. The family is close and the daughters are supportive. Gail calls her mother daily. Gail Michelle: [phone] home The patient no longer drives, neither does his , but he still has his car keys and access to the car. Family History - Family History Family History Comment/Other: Patient does not know how his parents ; they were estranged. His sister: COPD/emphysema; brother: colon cancer mets to liver. Medications/Allergies - Medications Home Medications: Ambulatory Orders Medication Instructions Recorded Confirmed Furosemide 60 mg PO DAILY 04/23/16 10/26/17 Lisinopril 2.5 mg PO DAILY 04/23/16 10/26/17 Potassium Chloride [K-Dur] 20 meq PO DAILY 04/23/16 10/26/17 Warfarin Sodium 2.5 mg PO .DAILY PM MDD Except on 04/23/16 10/26/17 Wed Digoxin 125 mcg PO DAILY 10/31/16 10/26/17 Multivitamin [Theragran] 1 each PO DAILY 07/05/17 10/26/17 Metoprolol Succinate 12.5 mg PO DAILY 10/26/17 10/26/17 Trazodone HCl 25 mg PO QPM PRN 10/26/17 10/26/17 Vitamin B12 1 tab PO .THREE TIMES PER WK 10/26/17 - Allergies Allergies/Adverse Reactions: Allergies Allergy/AdvReac Type Severity Reaction Status Date / Time No Known Drug Allergies Allergy Verified 10/04/17 20:56 Review of Systems - Constitutional Constitutional: reports: Weakness, Poor appetite, Weight loss (180 lb scurrent, has recently lost "water weight." Family doesn't know his previous baseline weight, but his appetite is poor now.) - Eyes Eyes: reports: Vision loss, Corrective lenses - Ears, Nose & Throat Ears, Nose & Throat: reports: Hearing loss (significant), Hearing aids - Cardiovascular Cardiovascular: reports: Exertional dyspnea, Decr. exercise tolerance. denies: Chest pain - Respiratory Respiratory: reports: SOB with exertion, Other (Uses 2L O2 when he lies down). denies: Cough - Gastrointestinal Gastrointestinal: reports: Poor appetite. denies: Constipation, Nausea - Genitourinary Genitourinary: reports: Urgency (goes to the toilet then forgets what he's there for), Incontinence (bladder). denies: Dysuria - Musculoskeletal Musculoskeletal: reports: Muscle weakness (Lower extremities), Assistive devices (walker), Transfer issues (requires help transferring; depends on his two [id number] recliners), Other (denies pain) - Neurological Neurological: reports: General weakness, Memory problems - Psychiatric Psychiatric: reports: Behavior disturbances (verbally abusive/demanding to ) Physical Exam - Vital Signs Temperature: 96.2 F Pulse Rate: 64 O2 Saturation: 95 (room air) Blood Pressure: 96/56 (wrist cuff) - Physical Exam General Appearance: positive: No acute distress, Other (Somnolent, but then alert once he woke up from his nap) Eyes Bilateral: positive: No lid inflammation, Conjunctivae nml ENT: positive: No signs of dehydration Neck: positive: Trachea midline Cardiovascular: positive: Regular rate & rhythm, No murmur Respiratory: positive: Chest non-tender, No respiratory distress, Diminished in bases (right side). negative: Wheezes, Rales Abdomen: positive: Non-tender, Soft, Nml bowel sounds Skin: positive: Other (lower extremities covered with Coban dressing. HH comes 2x/week; weeping sores improved) Extremities: positive: Pedal edema (+2 with Coban dressing. Feet are more edemic than legs) Neurologic/Psychiatric: positive: Disoriented to time, Flat affect Palliative Care - POLST Patient has POLST: Yes POLST Status: DNR, Selective Treatment Pain: No pain Tiredness/Fatigue: Moderate (4-6) Drowsiness/Sedation: None Nausea: None Dyspnea: Moderate (4-6) (with exertion, and while lying down) Anorexia: Moderate (4-6) Sleep: Variable sleep pattern (gets up regularly during the night) Constipation: No Performance Status: declining in cognition and function over the past year requires assistance with ADLs, shower very slow gait, unsteady, poor balance, uses walker poor appetite, some weight loss but from unknown baseline daytime sleep, then up at nighttime frequent falls - Palliative Care Discussion: Spoke with daughter at length prior to the visit. She and her sisters are concerned about the patient's declining function and that he is totally dependent on her and very demanding, "hollering" at her to do things for him, point at something while has no clue what he means, constantly demanding, and verbally abusive to her. The are very concerned about their mother getting hurt while trying to help him; she has arthritis in the shoulder and ankle and, for example, is unable to push him in a wheelchair. When the family has broached the subject of them moving into an Assisted Living facility, the patient flatly refused to go. Later a family member overheard him berating and blaming her for this idea of moving. The would be open to moving from their [place] home into Assisted Living, but won't leave him, though they are "legally " as was mentioned several times in this visit. The patient is adamant about remaining home, and we discussed this at length. Patient appears to be unaware of and perhaps unable to comprehend the stress on his of taking care of him. Currently the option of relocation to assisted living or other facility is not something the patient will consider, though the is open to it. So we discussed the how they could possibly stay in their home with help from outside caregivers. Spouse is open to this, she needs more time for taking care of herself too. She mentioned several times that she hasn't yet made an appointment to follow up on her neuropathy. The had met 09/19/17 with the / Palliative Care GEODUCK DIVER, and had accepted a job bank list of caregivers at that time. She also discussed with the medical social consultant about the demands of stresses of caring for the patient. We discussed obtaining a motorized wheelchair for the patient due to his frequent falls while ambulating, perhaps renting one initially. He has a wheelchair that he doesn't currently use because he can't propel himself and his spouse can't push him due to arthritis in shoulder and ankle. They also have thick carpeting in the house that further exacerbates the challenges of a manual wheelchair. The was supportive of a motorized chair and the patient didn't voice objections. I discussed this with Vickie the PT, who also spoke with the family about it. They would want to to rent a motorized WC on a trial basis to see if the patient likes it, would use it, and would be able to manage the controls. Family notes that the patient is very stubborn. Home health has noted he is often non compliant with their advice and suggestions. He perseverates about [facility]. However, he very much likes Vickie, the physical therapist, enjoys their sessions and listens to her advice. Gail, their daughter, asked me privately if the patient is eligible for Hospice now, and he is not. We discussed the criteria such as weight loss, increased infections, declining functionality, being at end-stage of dementia. Impression and Recommendations - Palliative Care Impression: 87 year old male with CHF, atrial fibrillation with pacemaker, dependent edema, and steadily decreasing functionality and balance with frequent falls. [place] with his as his sole caregiver, but with supportive family members living nearby. Spouse is at high risk of caregiver burnout and is willing to hire outside care-giving, and the patient may be supportive of this step. He currently flatly refuses to relocate from their home. Patient could benefit from using a motorized wheelchair. Palliative care will provide oversight and ongoing support and work with the family to support their goals of care. Currently the patient does not meet criteria for Hospice. Recommendations/Counseling Done: Debility: Frequent falls. Continuing with Home Health PT, patient likes his therapist a lot. Family will work with PT to rent a motorized wheelchair to decrease fall risk and to increase his mobility within the house. They'll renti it on a trial basis to see if patient wants and is able to use it. PT Vickie will coordinate. If motorized wheelchair works well, we can apply to Medicare to cover a motorized chair, PT can do the application, Palliative Care RANCH HELPER will do a [id number]. Dementia: Functionality and cognition decreasing steadily. at risk of caregiver burnout. Discussed at length hiring caregiver help, she is supportive, and after discussing with that this could be a way to keep him safe enough to live in the house, he appeared to agree. They think having someone in the later afternoon or evening (7:30-9pm) would be useful. Spouse has received the job file list from medical social consultant; I gave her the agency list. She is familiar with the [facility]. Poor appetite: Weight currently 180 lbs, patient has recently lost "water weight." Challenge is finding "no salt," or at least "low salt" food. Daughters and daughter in law try to help with meals. Spouse keeps daily records of weight and daughter Gail will monitor for trends. Venous stasis ulcer: Improving. Patient wears the Coban wraps, but doesn't elevate legs often. Home Health Nursing is managing wound care, comes 2x/week. Advanced Care Planning: POLST is DNR and selective treatment, signed July [address] Tate. Patient's goal is remaining in his home, currently he flatly refuses to leave, will not consider other residential options. His spouse is accommodating his wishes and will do what's necessary to help them stay in their home. She will go forward with hiring outside caregivers, she has lists and is familiar with [facility]. Her daughter Gail will help. Spouse and patient are legally , family wants to know if he may qualify for [facility] or other financial institution treasurer. Spoke to Palliative Care GEODUCK DIVER who recommends they speak to group insurance specialist at [facility]. PT will work with the family to get a rental motorized wheelchair on a trial basis. Follow up in 1-3 weeks about motorized wheelchair and paid healthcare prof support. Time Spent: 105 minutes were spent with more than 50% of the time spent on counseling, education, anticipatory guidance, and coordination of care.
== END 2017-10-26 17:41 | disposition home or self-care (01) ==
LOC: PC 17:40
PROVIDERS: ATTEND Nurse Practitioner
DX: Z51.5 Encounter for palliative care (principal); Z91.81 History of falling; F03.90 Unspecified dementia, unspecified severity, without behavioral disturbance, psychotic disturbance, mood disturbance, and anxiety; R63.0 Anorexia; I50.9 Heart failure, unspecified; I48.91 Unspecified atrial fibrillation; Z95.0 Presence of cardiac pacemaker; G47.33 Obstructive sleep apnea (adult) (pediatric); Z79.01 Long term (current) use of anticoagulants; M62.81 Muscle weakness (generalized); R06.09 Other forms of dyspnea; Z66 Do not resuscitate; Z99.81 Dependence on supplemental oxygen
CPT/HCPCS: 99345

== ENCOUNTER → 2017-11-26 | Outpatient (CLI) | payer MEDICARE, OTHER ==
[2017-11-27 10:03] LABS: INR 4.3 (0.8-1.2); PT - PROTHROMBIN TIME 48.2 secs (9.9-12.6)
== END ==
LOC: LAB.R 08:00
PROVIDERS: ATTEND Internal Medicine
DX: I48.91 Unspecified atrial fibrillation (principal)
CPT/HCPCS: 85610

== ENCOUNTER 2017-12-10 14:10 | Outpatient (CLI) | payer MEDICARE, OTHER ==
[2017-12-10 15:51] LABS: INR 3.5 (0.8-1.2); PT - PROTHROMBIN TIME 39.5 secs (9.9-12.6)
== END 2017-12-10 14:11 | disposition home or self-care (01) ==
LOC: LAB.R 14:10
PROVIDERS: ATTEND Internal Medicine
DX: I48.2 Chronic atrial fibrillation (principal)
CPT/HCPCS: 85610

== ENCOUNTER 2018-01-21 01:27 | Outpatient (CLI) | payer MEDICARE, OTHER | END 2018-01-21 01:28 | disposition EMS.NT | LOC: EMS 01:27 | PROVIDERS: ATTEND Surgery | DX: S51.011A Laceration without foreign body of right elbow, initial encounter (principal); W18.30XA Fall on same level, unspecified, initial encounter; Y92.002 Bathroom of unspecified non-institutional (private) residence as the place of occurrence of the external cause ==

== ENCOUNTER 2018-01-22 20:58 | Outpatient (CLI) | payer MEDICARE, OTHER | END 2018-01-22 20:59 | disposition EMS.NT | LOC: EMS 20:58 | PROVIDERS: ATTEND Surgery | DX: R51 Headache (principal); M54.2 Cervicalgia; W01.198A Fall on same level from slipping, tripping and stumbling with subsequent striking against other object, initial encounter; Y92.009 Unspecified place in unspecified non-institutional (private) residence as the place of occurrence of the external cause ==

== ENCOUNTER 2018-02-02 13:47 | Outpatient (CLI) | payer MEDICARE, OTHER | END 2018-02-02 13:48 | disposition home or self-care (01) | LOC: DI 13:47 | PROVIDERS: ATTEND Internal Medicine | DX: I50.9 Heart failure, unspecified (principal); I08.1 Rheumatic disorders of both mitral and tricuspid valves | CPT/HCPCS: 93306 ==

== ENCOUNTER 2018-02-07 12:15 | Outpatient (CLI) | payer MEDICARE, OTHER | END 2018-02-07 12:16 | disposition EMS.NT | LOC: EMS 12:15 | PROVIDERS: ATTEND Surgery | DX: R53.1 Weakness (principal); Z53.20 Procedure and treatment not carried out because of patient's decision for unspecified reasons ==

== ENCOUNTER 2018-02-09 19:04 | Outpatient (CLI) | payer MEDICARE, OTHER | END 2018-02-09 19:05 | disposition critical access hospital (66) | LOC: EMS 19:04 | PROVIDERS: ATTEND Surgery | DX: R53.1 Weakness (principal) | CPT/HCPCS: A0425; A0429 ==

== ENCOUNTER 2018-02-09 19:11 | Inpatient (IN) | payer MEDICARE, OTHER ==
[2018-02-09 20:15] LABS: BASOPHILS % (AUTO) 0.3 %; EOSINOPHILS % (AUTO) 0.2 %; HGB - HEMOGLOBIN 13.5 g/dL (14.0-18.0); LYMPHOCYTES # (AUTO) 0.5 10^3/uL (1.5-3.5); LYMPHOCYTES % (AUTO) 6.8 %; MEAN CORPUSCULAR HEMOGLOBIN 32.8 pg (27.0-31.0); MEAN CORPUSCULAR HGB CONC 32.5 g/dL (32.0-36.0); MEAN PLATELET VOLUME 7.8 fL (7.4-11.4); MONOCYTES # (AUTO) 0.6 10^3/uL (0.0-1.0); MONOCYTES % (AUTO) 8.7 %; NEUTROPHILS # (AUTO) 6.1 10^3/uL (1.5-6.6); PLT - PLATELET COUNT 157 10^3/uL (130-450); RED BLOOD COUNT 4.12 10^6/uL (4.70-6.10); RED CELL DISTRIBUTION WIDTH 14.7 % (12.0-15.0); WHITE BLOOD COUNT 7.2 x10^3/uL (4.8-10.8)
[2018-02-09] MEDS ORDERED: SODIUM CHLORIDE 0.9% 500 ML IV ONE (20:21)
[2018-02-09 20:22] LABS: INR 2.6 (0.8-1.2); PT - PROTHROMBIN TIME 28.6 secs (9.9-12.6)
--- NOTE | 2018-02-09 20:24 | ED Physician Documentation ---
History of Present Illness - Stated complaint Stated Complaint: LEG SWELLING & REDNESS/WEAK - Chief complaint Chief Complaint: Neuro - History obtained from History obtained from: Patient, Family - History of Present Illness Timing: How many days ago (3) - Additonal information Additional information: 87-year-old male with advanced dementia and a history of congestive heart failure atrial fibrillation hypertension and BPH has developed worsening redness to the right lower extremity. He has chronic edema to both lower extremities and is using a wrap therapy to control the edema and about 3 days ago the visiting nurse thought he should go to the emergency department because of increasing redness. Today the family notes that the patient has not been out of bed and has decreased activity. He has a marked increase in the amount of redness to his right lower extremity. He has redness now extending up to the upper thigh and yesterday this was below the knee. He has not had a fever he has not had vomiting. He is on oxygen at home as well as diuretics and he is feeling that he is not able to urinate. Review of Systems Constitutional: reports: Fatigue. denies: Fever, Chills Eyes: denies: Decreased vision Ears: denies: Ear pain Nose: denies: Rhinorrhea / runny nose, Congestion Throat: denies: Sore throat Cardiac: denies: Chest pain / pressure, Palpitations Respiratory: reports: Dyspnea. denies: Cough GI: denies: Abdominal Pain, Nausea, Vomiting, Constipation, Diarrhea : reports: Unable to Void. denies: Dysuria, Frequency Skin: denies: Rash Musculoskeletal: reports: Extremity pain, Extremity swelling. denies: Neck pain, Back pain Neurologic: reports: Generalized weakness. denies: Focal weakness, Numbness, Difficulty speaking PD PAST MEDICAL HISTORY - Past Medical History Cardiovascular: Congestive heart failure, Hypertension, Atrial fibrillation Respiratory: None, Other Neuro: Dementia Endocrine/Autoimmune:  GI: GERD : Benign prostate hypertrophy, Incontinence, Frequency HEENT: Chronic vision loss, Chronic hearing loss Psych: None Musculoskeletal: Osteoarthritis Derm: None - Past Surgical History Past Surgical History: Yes General: Cholecystectomy, Colonoscopy Ortho: Hip replacement, Carpal Tunnel surgery Cardiovascular: Pacemaker HEENT: Cataracts Derm:  - Present Medications Home Medications: Ambulatory Orders Medication Instructions Recorded Confirmed Furosemide 60 mg PO DAILY 04/23/16 10/26/17 Lisinopril 2.5 mg PO DAILY 04/23/16 10/26/17 Potassium Chloride [K-Dur] 20 meq PO DAILY 04/23/16 10/26/17 Warfarin Sodium 2.5 mg PO .DAILY PM MDD Except on 04/23/16 10/26/17 Wed Digoxin 125 mcg PO DAILY 10/31/16 10/26/17 Multivitamin [Theragran] 1 each PO DAILY 07/05/17 10/26/17 Metoprolol Succinate 12.5 mg PO DAILY 10/26/17 10/26/17 Trazodone HCl 25 mg PO QPM PRN 10/26/17 10/26/17 Vitamin B12 1 tab PO .THREE TIMES PER WK 10/26/17 - Allergies Allergies/Adverse Reactions: Allergies Allergy/AdvReac Type Severity Reaction Status Date / Time No Known Drug Allergies Allergy Verified 02/09/18 19:24 - Social History Does the pt smoke?: No Smoking Status: Never smoker Does the pt drink ETOH?: No Does the pt have substance abuse?: No - Immunizations Immunizations are current?: Yes - POLST Patient has POLST: Yes POLST Status: Full Code PD ED PE NORMAL - Vitals Vital signs reviewed: Yes (normal ) - General General: No acute distress, Well developed/nourished - HEENT HEENT: Atraumatic, PERRL, EOMI - Neck Neck: Supple, no meningeal sign, No bony TTP - Cardiac Cardiac: No murmur, Other (irregularly irregular) - Respiratory Respiratory: No respiratory distress, Clear bilaterally - Abdomen Abdomen: Soft, Non tender - Back Back: No CVA TTP, No spinal TTP - Derm Derm: Normal color, Warm and dry - Extremities Extremities: Other (There is bilateral edema and erythema to the mid calf on the left that is worse than usual and there is marked angry erythema to the right lower extremity that extends to the upper thigh. ) - Neuro Neuro: commissary officer 2-12 intact, No motor deficit, No sensory deficit, Normal speech Eye Opening: Spontaneous Motor: Obeys Commands Verbal: Oriented GCS Score: 15 - Psych Psych: Normal mood, Normal affect Results - Vitals Vitals: Vital Signs - 24 hr 02/09/18 02/09/18 19:15 20:30 Temperature 36.9 C Heart Rate 92 58 L Respiratory 20 20 Rate Blood Pressure 110/63 96/54 L O2 Saturation 96 93 Oxygen O2 Source [] Room air O2 Source Nasal cannula Oxygen Flow Rate 3 - Labs Labs: Laboratory Tests 02/09/18 02/09/18 02/09/18 20:10 20:10 20:10 WBC 7.2 RBC 4.12 L Hgb 13.5 L Hct 41.6 L MCV 101.0 H MCH 32.8 H MCHC 32.5 RDW 14.7 Plt Count 157 MPV 7.8 Neut # (Auto) 6.1 Lymph # (Auto) 0.5 L Howell # (Auto) 0.6 Eos # (Auto) 0.0 Baso # (Auto) 0.0 Absolute Nucleated RBC 0.01 Nucleated RBC % 0.1 PT 28.6 H INR 2.6 H Sodium 144 Potassium 4.3 Chloride 98 L Carbon Dioxide 38 H Anion Gap 8.0 BUN 29 H Creatinine 1.1 Estimated GFR (MDRD) 63 L Glucose 110 H Calcium 9.1 Total Bilirubin 2.6 H AST 35 ALT 25 Alkaline Phosphatase 182 H B-Natriuretic Peptide Total Protein 7.1 Albumin 3.2 Globulin 3.9 Albumin/Globulin Ratio 0.8 L Lipase 34 Last Dose Date Last Dose Time Digoxin 02/09/18 02/09/18 20:10 20:10 WBC RBC Hgb Hct MCV MCH MCHC RDW Plt Count MPV Neut # (Auto) Lymph # (Auto) Howell # (Auto) Eos # (Auto) Baso # (Auto) Absolute Nucleated RBC Nucleated RBC % PT INR Sodium Potassium Chloride Carbon Dioxide Anion Gap BUN Creatinine Estimated GFR (MDRD) Glucose Calcium Total Bilirubin AST ALT Alkaline Phosphatase B-Natriuretic Peptide 818 H Total Protein Albumin Globulin Albumin/Globulin Ratio Lipase Last Dose Date UNKNOWN Last Dose Time UNKNOWN Digoxin 1.3 - Rads (name of study) 1 view chest Radiology: Prelim report reviewed (Impression: Enlarged heart, with worsening basilar opacities, right greater than left, and right pleural effusion, concerning for CHF), EMP read indepedently, See rad report Procedures - IVC sono (time) 2013 Bedside IVC sono: IVC measures (cm) (1.62), IVC collapsed c insp (cm) (1.62), Euvolemia, Other (This vessle was recently measured at 2.1cm it does not collapse consistent with elevated right heart pressure.) PD MEDICAL DECISION MAKING - ED course Complexity details: reviewed results, re-evaluated patient, considered differential, d/w patient, d/w family ED course: 87-year-old male with what appears to be bilateral edema with cellulitis much worse on the right than the left and he does appear to be volume depleted. He does have normal ejection fraction and elevated right heart pressures and relat sander to the recent echocardiogram done 7 days ago his volume is decreased. His blood pressure is right around 100 systolic and he is administered 500 mils of saline. He is administered IV rocephin as well. Dr. Krishnamurthy is consulted in the case for admission. Departure - Departure Disposition: [facility] DC/Xfer Clinical Impression: Cellulitis Qualifiers: Site of cellulitis: extremity Site of cellulitis of extremity: lower extremity Laterality: right Qualified Code(s): L03.115 - Cellulitis of right lower limb
[2018-02-09 20:31] LABS: ALBUMIN 3.2 g/dL (3.2-5.5); ALBUMIN/GLOBULIN RATIO 0.8 (1.0-2.2); BILIRUBIN,TOTAL 2.6 mg/dL (0.2-1.0); CALCIUM 9.1 mg/dL (8.5-10.3); CREATININE 1.1 mg/dL (0.6-1.2); DIGOXIN 1.3 ng/mL; TOTAL PROTEIN 7.1 g/dL (6.7-8.2)
[2018-02-09] MEDS ORDERED: cefTRIAXone 1 GM in SODIUM CHLORIDE 0.9% MINIBAG 100 ML IV STA (20:41)
--- NOTE | 2018-02-09 21:19 | XRAY Report ---
Reason: chest pain Procedure Date: 02/09/2018 Accession Number: [id number] / [id number] Procedure: XR - Chest 1 View X-Ray CPT Code: 86511 FULL RESULT: EXAM: CHEST RADIOGRAPHY EXAM DATE: 02/09/2018 09:08 PM. CLINICAL HISTORY: Chest pain and shortness of breath. Weakness. COMPARISON: CHEST 1 VIEW 07/06/2017 9:36 AM. TECHNIQUE: 1 view. FINDINGS: Lungs/Pleura: Worsening basilar opacities, right greater than left, with right pleural effusion. Upper lungs clear. No pneumothorax. Mediastinum: Large heart. Calcified aortic arch. Other: Stable dual lead left pacemaker. IMPRESSION: Large heart, with worsening basilar opacities, right greater than left, and right pleural effusion, concerning for CHF. RADIA
[2018-02-09] MEDS ORDERED: traZODone 50 MG TABLET PO PRN (21:50)
[2018-02-09] MEDS ORDERED: hydrALAZINE INJ 20 MG/ML VIAL IVP PRN (21:52)
[2018-02-09] MEDS ORDERED: ONDANSETRON ODT 4 MG TABLET TL PRN (21:58)
[2018-02-09] MEDS ORDERED: ACETAMINOPHEN 325 MG TABLET PO PRN (21:58)
[2018-02-09] MEDS ORDERED: ONDANSETRON 4 MG/2 ML VIAL IVP PRN (21:58)
[2018-02-09] MEDS ORDERED: HYDROcod/ACETAM 5/325 MG TABLET PO PRN (21:58)
[2018-02-09] MEDS ORDERED: WARFARIN 5 MG TABLET PO SCH (22:00)
--- NOTE | 2018-02-09 22:07 | HISTORY & PHYSICAL EXAMINATION ---
Chief Complaint - Chief Complaint Chief Complaint: BLE redness with pain x 2 weeks History of Present Illness - Admitted From Admitted From:: ED - History Obtained From Records Reviewed: yes History obtained from: patient and family Exam Limitations: patient with dementia - History of Present Illness HPI Comment/Other: 87-year-old male with advanced dementia and a history of Diastolic congestive heart failure, chronic atrial fibrillation with a PM, hypertension, CKD stage 2, dementia, OA, GERD, and BPH has developed worsening redness to the right lower extremity. He has chronic edema to both lower extremities and is using a wrap therapy to control the edema and about 3 days ago the visiting nurse thought he should go to the emergency department because of increasing redness. Today the family notes that the patient has not been out of bed and has decreased activity. He has a marked increase in the amount of redness to his right lower extremity. He has redness now extending up to the upper thigh and yesterday this was below the knee. He has not had a fever he has not had vomiting. He is on oxygen at home as well as diuretics and he is feeling that he is not able to urinate. On labs patient had co2 38, on 2L NC at nightime for his chronic hypoxemic resp failure from his diastolic HF, chronic afib on coumadin with INR therapeutic at 2.6, cr 1.1 with baseline 0.9-1.3, ckd stage 2, BNP 818, Tbili 2.6, with normal LFT's, Dig level was 1.3. CBC unremarkable. Patient's family mention edema with some mild SOB than usual without chest pain, flank pain, dysuria, N/V, abd pain, diarrhea, or /GI symptoms. CXR showed right pleural effusion with opacities R>L, on lasix previously. BP's were on the low side and was taking lisinopril along with metoprolol for afterload reduction. History - Past Medical History Cardiovascular: reports: Congestive heart failure, Hypertension, Atrial fibrillation Respiratory: reports: None, Other Neuro: reports: Dementia Endocrine/Autoimmune: GI: reports: GERD : reports: Benign prostate hypertrophy, Incontinence, Frequency HEENT: reports: Chronic vision loss, Chronic hearing loss Psych: reports: None Musculoskeletal: reports: Osteoarthritis Derm: reports: None MRSA Hx?: No - Past Surgical History General: reports: Cholecystectomy, Colonoscopy Ortho: reports: Hip replacement, Carpal Tunnel surgery Cardiovascular: reports: Pacemaker HEENT: reports: Cataracts Derm: - Family & Social History Family History: Mother: (Patient was estranged and does not know how they ), Father: , Sister: COPD/Emphysema, Brother: Cancer (Colon cancer with metastasis to the liver) Social History Notes: The patient lives with his on [facility]. They lived in a home and have been for 69 years. They have 6 grown children. The patient is retired and used to work on the [employer]. He was born in [place]. He denies any tobacco use, alcohol use or any illicit drug use. - POLST Patient has POLST: Yes POLST Status: Full Code Meds/Allgy - Home Medications Home Medications: Ambulatory Orders Medication Instructions Recorded Confirmed Furosemide 60 mg PO DAILY 04/23/16 10/26/17 Lisinopril 2.5 mg PO DAILY 04/23/16 10/26/17 Potassium Chloride [K-Dur] 20 meq PO DAILY 04/23/16 10/26/17 Warfarin Sodium 2.5 mg PO .DAILY PM MDD Except on 04/23/16 10/26/17 Wed Digoxin 125 mcg PO DAILY 10/31/16 10/26/17 Multivitamin [Theragran] 1 each PO DAILY 07/05/17 10/26/17 Metoprolol Succinate 12.5 mg PO DAILY 10/26/17 10/26/17 Trazodone HCl 25 mg PO QPM PRN 10/26/17 10/26/17 Vitamin B12 1 tab PO .THREE TIMES PER WK 10/26/17 - Allergies Allergies/Adverse Reactions: Allergies Allergy/AdvReac Type Severity Reaction Status Date / Time No Known Drug Allergies Allergy Verified 02/09/18 19:24 Review of Systems - Constitutional Constitutional: reports: Weakness. denies: Fatigue, Fever, Chills, Malaise - Ears, Nose & Throat Ears, Nose & Throat: denies: Vertigo - Cardiovascular Cariovascular: reports: Irregular heart rate, Edema. denies: Palpitations, Chest pain, Syncope, Orthopnea - Respiratory Respiratory: denies: Cough, Sputum production, Wheezing - Gastrointestinal Gastrointestinal: denies: Abdominal pain, Abdominal distention, Diarrhea, Black stools, Bloody stools - Genitourinary Genitourinary: denies: Dysuria, Frequency, Urgency, Hematuria - Musculoskeletal Musculoskeletal: denies: Muscle pain, Back pain, Muscle aches, Stiffness - Integumentary Integumentary: reports: Rash - Neurological Neurological: denies: General weakness, Focal weakness, Headache, Dizziness - Psychiatric Psychiatric: denies: Depression, Anxiety, Hallucinations - Endocrine Endocrine: reports: Polyuria - Hematologic/Lymphatic Hematologic/Lymphatic: reports: Anemia. denies: Recurrent infections - All Other Systems All Other Systems: reports: Reviewed and negative Prior Level of Functionality: Patient with bedbound status for at least a 1 week. Dementia with unknown prior functional status Exam - Vital Signs Vital Signs: Vital Signs x48h Temp Pulse Resp BP Pulse Ox 02/09/18 21:40 61 20 104/61 100 02/09/18 20:30 58 L 20 96/54 L 93 02/09/18 19:15 36.9 C 92 20 110/63 96 - Physical Exam General Appearance: positive: No acute distress, Other (pleasantly demented) Eyes Bilateral: positive: PERRL, EOMI, Conjunctivae nml ENT: positive: Pharynx nml Neck: positive: Nml inspection, Thyroid nml, No JVD, Trachea midline. negative: Thyromegaly, Carotid bruit Respiratory: positive: Chest non-tender, No respiratory distress, Breath sounds nml, Rales, Other (faint bibasilar rales R>L) Cardiovascular: positive: No murmur, Irregularly irregular, Bradycardia, Decreased pulse(s). negative: No gallop, JVD present, Systolic murmur, Diastolic murmur, Gallop/S3, Friction rub Peripheral Pulses: positive: 1+ Abdomen: positive: Non-tender, No organomegaly, Nml bowel sounds, No distention, Tenderness, Hepatomegaly, Splenomegaly. negative: Bruit Skin: positive: Skin rash Extremities: positive: Other (2-3 +edema to BLE R>L with erythematous lesion to mid thigh) Neurologic/Psychiatric: positive: CN's nml (2-12), Disoriented to place, Disoriented to time, Other. negative: Slurred/abnml speech, Depressed mood/affect Sepsis Event Note (H) - Evaluation Current Stage of Sepsis: Ruled out Conclusion/Plan - Problem List (1) Cellulitis Conclusion/Plan: Patient with underlying risk factors to include venous stasis, chronic edema, bound bound status, will start rocephin to cover for strept and MSSA, may have mrsa, but lactic acid not elevated, no fevers, and lack of leukocytosis despite low BP's and hyperbilirubinemia sec to diuretics and BP meds. IV rocephin to continue. Would not due wrap therapies as this likely made problem worst due to further infection in soft tissues. Qualifiers: Site of cellulitis: extremity Site of cellulitis of extremity: lower extremity Laterality: right Qualified Code(s): L03.115 - Cellulitis of right lower limb (2) Pleural effusion due to congestive heart failure Conclusion/Plan: sec to acute mild decomp of diatolic HF will need IV lasix in the setting of edema to improve infection clearance as well. BNP 818, prior echo on 02/04/18 shows a p-EF and pulm htn with RSVP 46 mm hg, would need afterload reduction once diuresis improved. (3) Chronic edema Conclusion/Plan: IV lasix, elevate legs past heart, obtain US to BLE to r/o DVT. Avoid wrap tx. (4) Chronic hypoxemic respiratory failure Conclusion/Plan: Continue with supplemental o2tx. CXR shows pleural effusions sec to HF. (5) Hypercarbia Conclusion/Plan: May be retaining and possible YOSEF, is on nightime o2 tx at 2L NC, may need sleep study (7) Hypotension Conclusion/Plan: Orthostats to eval for orthostatic hypertension, midodrine prn with parameters Qualifiers: Hypotension type: unspecified hypotension type Qualified Code(s): I95.9 - Hypotension, unspecified (8) Atrial fibrillation Conclusion/Plan: Chronic Afib AC on coumadin, CHads>3, INR therapeutic, would have pharmacy titrate to gaol of 2-3 Qualifiers: Atrial fibrillation type: chronic Qualified Code(s): I48.2 - Chronic atrial fibrillation (9) Diastolic heart failure Conclusion/Plan: IV lasix, p-EF on last echo, afterload reduction if BP tolerates Qualifiers: Heart failure chronicity: acute on chronic Qualified Code(s): I50.33 - Acute on chronic diastolic (congestive) heart failure (10) Elevated bilirubin Conclusion/Plan: sec to volume status not so much sepsis (11) Advance care planning Conclusion/Plan: Discussion with family going over wishes and previous POLST with DNR status. [place] ls of care and disease trajectory were explained to patient. - Lab Results Fish Bones: 02/09/18 20:10 02/09/18 20:10 - Diagnostic Imaging Results Diagnostic Imaging Results: positive: Final report reviewed - EKG Results EKG Interpreted Independently: Yes Core Measures - Anticipated LOS I expect patient to be DC'd or transferred within 96 hours.: No - DVT/VTE - Prophylaxis VTE/DVT Device ordered at admit?: No Not Ordered - Medical Reason: Contraindicated (active infection) VTE/DVT Prophylaxis med ordered at admit?: Yes - Stroke - Rehab Assessment Rehab services assessment to be ordered?: No - AMI - Statin at Admit Aspirin Prescribed on Admit: No Not Ordered - Medical Reason: Not indicated (on coumadin)
[2018-02-09] MEDS ORDERED: MIDODRINE 2.5 MG TABLET PO PRN (22:28)
[2018-02-10] MEDS: SODIUM CHLORIDE FLUSH 0.9% 10 ML SYRINGE IVP SCH ×3 (00:22→16:31)
--- NOTE | 2018-02-10 00:30 | Ultrasound Report ---
Reason: edema to legs with pain Procedure Date: 02/09/2018 Accession Number: [id number] / [id number] Procedure: US - Duplex Ext Veins Bilateral CPT Code: FULL RESULT: EXAM: BILATERAL LOWER EXTREMITY VENOUS ULTRASOUND EXAM DATE: 02/09/2018 11:59 PM. CLINICAL HISTORY: Edema to legs with pain. COMPARISON: None. TECHNIQUE: Real-time sonographic vascular imaging was performed by the yard driver through the lower extremities utilizing both color-flow and Doppler spectral analysis. Multiple medical collections representative static images were saved for review. FINDINGS: Right: Common Femoral Vein (CFV): Normal. CFV-GSV Junction: Normal. Profunda Femoral Vein (PFV): Normal. Femoral Vein (FV) Prox: Normal. Femoral Vein (FV) Mid: Normal. Femoral Vein (FV) Dist: Normal. Popliteal Vein: Normal. Posterior Tibial Veins: Normal. Peroneal Veins: Normal. Left: Common Femoral Vein (CFV): Normal. CFV-GSV Junction: Normal. Profunda Femoral Vein (PFV): Normal. Femoral Vein (FV) Prox: Normal. Femoral Vein (FV) Mid: Normal. Femoral Vein (FV) Dist: Normal. Popliteal Vein: Normal. Posterior Tibial Veins: Normal. Peroneal Veins: Normal. Other: None. IMPRESSION: No evidence for deep venous thrombosis bilaterally. RADIA
[2018-02-10] MEDS ORDERED: MIN OIL/DIMETHICON/COCONUT OIL 92 GM TUBE TOP PRN (04:55)
[2018-02-10 06:10] LABS: BASOPHILS % (AUTO) 0.4 %; EOSINOPHILS % (AUTO) 0.5 %; HGB - HEMOGLOBIN 12.7 g/dL (14.0-18.0); LYMPHOCYTES # (AUTO) 0.6 10^3/uL (1.5-3.5); LYMPHOCYTES % (AUTO) 10.8 %; MEAN CORPUSCULAR HGB CONC 32.4 g/dL (32.0-36.0); MEAN CORPUSCULAR VOLUME 101.8 fL (80.0-94.0); MEAN PLATELET VOLUME 8.1 fL (7.4-11.4); MONOCYTES # (AUTO) 0.5 10^3/uL (0.0-1.0); MONOCYTES % (AUTO) 8.9 %; NEUTROPHILS # (AUTO) 4.7 10^3/uL (1.5-6.6); NEUTROPHILS % (AUTO) 79.4 %; PLT - PLATELET COUNT 143 10^3/uL (130-450); RED BLOOD COUNT 3.85 10^6/uL (4.70-6.10); WHITE BLOOD COUNT 5.9 x10^3/uL (4.8-10.8)
[2018-02-10 06:25] LABS: ALBUMIN 2.8 g/dL (3.2-5.5); CALCIUM 8.8 mg/dL (8.5-10.3); CREATININE 1.1 mg/dL (0.6-1.2); PHOSPHORUS 3.5 mg/dL (2.5-4.6)
[2018-02-10] MEDS: MULTIVITAMIN TABLET PO SCH (08:24)
[2018-02-10] MEDS: FAMOTIDINE 20 MG TABLET PO SCH (08:24)
[2018-02-10] MEDS: DIGOXIN 125 MCG TABLET PO SCH (08:24)
[2018-02-10] MEDS: POLYETHYLENE GLYCOL 3350 17 GM PACKET PO SCH (08:25)
[2018-02-10] MEDS: FUROSEMIDE 40 MG/4 ML VIAL IVP SCH ×2 (08:25→21:48)
[2018-02-10] MEDS ORDERED: FUROSEMIDE 40 MG TABLET PO SCH (09:00)
[2018-02-10] MEDS ORDERED: ENOXAPARIN 40 MG/0.4 ML SYRINGE SUBQ SCH (09:00)
--- NOTE | 2018-02-10 14:07 | PROVIDER PROGRESS NOTE ---
Subjective - Prog Note Date Prog Note Date: 02/10/18 Prog Note Time: 14:07 - Subjective Pt reports feeling: Improved Subjective: Jose complains of frequent urination and is somewhat resistant to an exam, so I came back later in the day when he was more agreeable. He denies any acute problems such as chest pain, chest tightness, nausea, vomiting, a new rash, or increased shortness of breath or cough. Current Medications - Current Medications Current Medications: Active Medications: Acetaminophen (Tylenol) 650 mg PO Q4HR PRN Hydrocodone Bitart/Acetaminophen ([place] 5/325) 1 tab PO Q4HR PRN Digoxin (Lanoxin) 125 mcg PO DAILY BEN Famotidine (Pepcid) 20 mg PO DAILY BEN Furosemide (Lasix Inj 40 Mg Vial) 40 mg IVP BID BEN Hydralazine HCl (Apresoline Inj) 10 mg IVP Q4HR PRN Ceftriaxone Sodium 1 gm/ (Sodium Chloride) 100 mls @ 200 mls/hr IV Q24H BEN Midodrine 10 mg PO TID PRN Mineral Oil (Cavilon) 1 applic TOP PRN PRN Multivitamins (Theragran) 1 tab PO DAILY BEN Non-Formulary Medication (Vitamin B12) 1 tab PO .THREE TIMES PER WK BEN Ondansetron HCl (Zofran Inj) 4 mg IVP Q6HR PRN Ondansetron HCl (Zofran Odt) 4 mg TL Q6HR PRN Polyethylene Glycol (Miralax) 17 gm PO DAILY BEN Temazepam (Restoril) 15 mg PO QPM PRN Trazodone HCl (Desyrel) 25 mg PO QPM PRN Warfarin Sodium (Coumadin) 2.5 mg PO QDWARFARIN [facility] HOME meds: Furosemide 80 mg PO DAILY 04/23/16 Potassium Chloride [K-Dur] 10 meq PO DAILY 04/23/16 Warfarin Sodium 2.5 mg PO SUTUWETHSA@2100 MDD Except on Sun04/23/16 Digoxin 125 mcg PO DAILY 10/31/16 Multivitamin [Theragran] 1 each PO DAILY 07/05/17 Metoprolol Succinate 12.5 mg PO DAILY 10/26/17 Objective - Vital Signs/Intake & Output Reviewed Vital Signs: Yes Vital Signs: Vital Signs x48h Temp Pulse Pulse Pulse Pulse Resp BP 02/10/18 12:00 36.0 C L 65 15 02/10/18 11:08 02/10/18 10:00 66 75 65 02/10/18 08:00 36.3 C L 60 14 125/69 BP BP BP BP Pulse Ox 02/10/18 12:00 124/63 92 02/10/18 11:08 94 02/10/18 10:00 108/67 101/60 113/67 02/10/18 08:00 100 Intake & Output: Intake & Output 02/07/18 02/08/18 02/09/18 02/10/18 23:59 23:59 23:59 23:59 Intake Total 600 1490 Output Total 0 200 Balance 600 1290 - Objective General Appearance: positive: No acute distress, Alert, Anxious Eyes Bilateral: positive: PERRL Eyes: OU Conjunctivae pale ENT: positive: Pharynx nml, No signs of dehydration Neck: positive: Thyroid nml, No JVD, Trachea midline Respiratory: positive: Chest non-tender, No respiratory distress, Wheezes, Rhonchi Cardiovascular: positive: Bradycardia, Systolic murmur, Decreased pulse(s) Peripheral Pulses: 1+ Radial (R), 1+ Radial (L) Abdomen: positive: Non-tender, Nml bowel sounds, Other (obese, soft) Back: positive: Nml inspection Skin: positive: No rash, Warm, Dry, Pallor Extremities: positive: Pedal edema, Joint swelling, Other (acute cellulits-BLEs) Neurologic/Psychiatric: positive: Disoriented to place, Disoriented to time, Weakness, Sensory loss, Slurred/abnml speech, Depressed mood/affect, Other (base line dementia) Reflexes: Bicep (R): 2+, Bicep (L): 2+ - Lab Results Fish Bones: 02/10/18 05:54 02/10/18 05:54 Other Labs: Lab Results x24hrs 02/10/18 02/10/18 02/09/18 Range/Units 05:54 05:54 20:55 WBC 5.9 (4.8-10.8) x10^3/uL RBC 3.85 L (4.70-6.10) 10^6/uL Hgb 12.7 L (14.0-18.0) g/dL Hct 39.3 L (42.0-52.0) % MCV 101.8 H (80.0-94.0) fL MCH 33.0 H (27.0-31.0) pg MCHC 32.4 (32.0-36.0) g/dL RDW 15.0 (12.0-15.0) % Plt Count 143 (130-450) 10^3/uL MPV 8.1 (7.4-11.4) fL Neut # (Auto) 4.7 (1.5-6.6) 10^3/uL Lymph # (Auto) 0.6 L (1.5-3.5) 10^3/uL [place] # (Auto) 0.5 (0.0-1.0) 10^3/uL Eos # (Auto) 0.0 (0.0-0.7) 10^3/uL Baso # (Auto) 0.0 (0.0-0.1) 10^3/uL Absolute Nucleated RBC 0.00 x10^3/uL Nucleated RBC % 0.0 /100WBC PT (9.9-12.6) secs INR (0.8-1.2) Sodium 141 (135-145) mmol/L Potassium 4.1 (3.5-5.0) mmol/L Chloride 98 L (101-111) mmol/L Carbon Dioxide 35 H (21-32) mmol/L Anion Gap 8.0 (6-13) BUN 30 H (6-20) mg/dL Creatinine 1.1 (0.6-1.2) mg/dL Estimated GFR (MDRD) 63 L (>89) Glucose 100 (70-100) mg/dL Lactic Acid 1.2 (0.5-2.2) mmol/L Calcium 8.8 (8.5-10.3) mg/dL Phosphorus 3.5 (2.5-4.6) mg/dL Total Bilirubin (0.2-1.0) mg/dL AST (10-42) IU/L ALT (10-60) IU/L Alkaline Phosphatase (42-121) IU/L B-Natriuretic Peptide (5-100) pg/mL Total Protein (6.7-8.2) g/dL Albumin 2.8 L (3.2-5.5) g/dL Globulin (2.1-4.2) g/dL Albumin/Globulin Ratio (1.0-2.2) Lipase (22-51) U/L Last Dose Date Last Dose Time Digoxin ng/mL 02/09/18 02/09/18 02/09/18 Range/Units 20:10 20:10 20:10 WBC (4.8-10.8) x10^3/uL RBC (4.70-6.10) 10^6/uL Hgb (14.0-18.0) g/dL Hct (42.0-52.0) % MCV (80.0-94.0) fL MCH (27.0-31.0) pg MCHC (32.0-36.0) g/dL RDW (12.0-15.0) % Plt Count (130-450) 10^3/uL MPV (7.4-11.4) fL Neut # (Auto) (1.5-6.6) 10^3/uL Lymph # (Auto) (1.5-3.5) 10^3/uL [place] # (Auto) (0.0-1.0) 10^3/uL Eos # (Auto) (0.0-0.7) 10^3/uL Baso # (Auto) (0.0-0.1) 10^3/uL Absolute Nucleated RBC x10^3/uL Nucleated RBC % /100WBC PT (9.9-12.6) secs INR (0.8-1.2) Sodium 144 (135-145) mmol/L Potassium 4.3 (3.5-5.0) mmol/L Chloride 98 L (101-111) mmol/L Carbon Dioxide 38 H (21-32) mmol/L Anion Gap 8.0 (6-13) BUN 29 H (6-20) mg/dL Creatinine 1.1 (0.6-1.2) mg/dL Estimated GFR (MDRD) 63 L (>89) Glucose 110 H (70-100) mg/dL Lactic Acid (0.5-2.2) mmol/L Calcium 9.1 (8.5-10.3) mg/dL Phosphorus (2.5-4.6) mg/dL Total Bilirubin 2.6 H (0.2-1.0) mg/dL AST 35 (10-42) IU/L ALT 25 (10-60) IU/L Alkaline Phosphatase 182 H (42-121) IU/L B-Natriuretic Peptide 818 H (5-100) pg/mL Total Protein 7.1 (6.7-8.2) g/dL Albumin 3.2 (3.2-5.5) g/dL Globulin 3.9 (2.1-4.2) g/dL Albumin/Globulin Ratio 0.8 L (1.0-2.2) Lipase 34 (22-51) U/L Last Dose Date UNKNOWN Last Dose Time UNKNOWN Digoxin 1.3 ng/mL 02/09/18 02/09/18 Range/Units 20:10 20:10 WBC 7.2 (4.8-10.8) x10^3/uL RBC 4.12 L (4.70-6.10) 10^6/uL Hgb 13.5 L (14.0-18.0) g/dL Hct 41.6 L (42.0-52.0) % MCV 101.0 H (80.0-94.0) fL MCH 32.8 H (27.0-31.0) pg MCHC 32.5 (32.0-36.0) g/dL RDW 14.7 (12.0-15.0) % Plt Count 157 (130-450) 10^3/uL MPV 7.8 (7.4-11.4) fL Neut # (Auto) 6.1 (1.5-6.6) 10^3/uL Lymph # (Auto) 0.5 L (1.5-3.5) 10^3/uL [place] # (Auto) 0.6 (0.0-1.0) 10^3/uL Eos # (Auto) 0.0 (0.0-0.7) 10^3/uL Baso # (Auto) 0.0 (0.0-0.1) 10^3/uL Absolute Nucleated RBC 0.01 x10^3/uL Nucleated RBC % 0.1 /100WBC PT 28.6 H (9.9-12.6) secs INR 2.6 H (0.8-1.2) Sodium (135-145) mmol/L Potassium (3.5-5.0) mmol/L Chloride (101-111) mmol/L Carbon Dioxide (21-32) mmol/L Anion Gap (6-13) BUN (6-20) mg/dL Creatinine (0.6-1.2) mg/dL Estimated GFR (MDRD) (>89) Glucose (70-100) mg/dL Lactic Acid (0.5-2.2) mmol/L Calcium (8.5-10.3) mg/dL Phosphorus (2.5-4.6) mg/dL Total Bilirubin (0.2-1.0) mg/dL AST (10-42) IU/L ALT (10-60) IU/L Alkaline Phosphatase (42-121) IU/L B-Natriuretic Peptide (5-100) pg/mL Total Protein (6.7-8.2) g/dL Albumin (3.2-5.5) g/dL Globulin (2.1-4.2) g/dL Albumin/Globulin Ratio (1.0-2.2) Lipase (22-51) U/L Last Dose Date Last Dose Time Digoxin ng/mL ABX Reporting Has patient been on IV antibiotics over the past 48 hours?: Yes Sepsis Event Note (H) - Evaluation Current Stage of Sepsis: Sepsis Possible source of Sepsis: positive: Skin/soft tissue - Sepsis Criteria Sepsis Criteria: Respiratory: Increasing oxygen requirements, CONCRETE SPREADER: altered consciousness (unrelated to primary neuro pathology), Renal: urine output less than 0.5ml/kg/hr for 2 hours or creatinine gr, Hepatic: Bilirubin greater than 2mg/dl Assessment/Plan - Problem List (1) Cellulitis Impression: Patient with underlying risk factors to include venous stasis, chronic edema, bound bound status, will start rocephin to cover for strept and MSSA, may have mrsa, but lactic acid not elevated, no fevers, and lack of leukocytosis despite low BP's and hyperbilirubinemia sec to diuretics and BP meds. IV rocephin to continue. Plan: Avoid wrapping therapies as this likely made problem worst due to further infection in soft tissues, continue IV rocephin, monitor for improvement. Qualifiers: Site of cellulitis: extremity Site of cellulitis of extremity: lower extremity Laterality: right Qualified Code(s): L03.115 - Cellulitis of right lower limb (2) CKD (chronic kidney disease) stage 2, GFR 60-89 ml/min Impression: The patient has this known disease and appropriately anticoagulated with Warfarin to avoid the nephrotoxic properties of Eliquis or Xarelto. He has a GFR of 63 and a creatinine of 1.1 on admission. Plan: Continue daily labs, daily weights, and avoid nephrotoxins. (3) Diastolic heart failure, NYHA class 3 Impression: The patient had an echocardiogram on 02/02/18 that show a preserved EF of 55%, diastolic HF with an elevated RVSP at rest of 46 mmHg. He is treated with furosemide and K+ supplement at home, which is now on hold with a substitute of Lasix 40 mg IV BID. Plan: Continue IV lasix, monitor electrolytes, consider adding spironolactone to preserve EF with a reduction in daily lasix upon discharge. (4) Chronic edema Impression: The patient has longstanding chronic edema and this is likely a consequence of his pulmonary HTN with his last RVSP at rest of 46 mmHg. He was previously ELEANOR wrapping his legs, but they are now infected so remain open to air. BLE dopplers were negative for DVTs. Plan: IV lasix, elevate legs past heart, Avoid wrap tx. (5) Pleural effusion due to congestive heart failure Impression: This is likely secondary to acute mild decompensation of diatolic HF and has been given IV lasix in the setting of edema to improve infection clearance as well. BNP 818, prior echo on 02/04/18 shows a p-EF and pulm htn with RSVP 46 mm hg. Imaging showed pleural effusions Plan: Afterload reduction once diuresis improved, daily weights, monitor fluid status, strict I/Os. (6) Chronic anticoagulation Impression: The patient is prescribed Warfarin and today his INR was 2.6. He continues on 2.5 mg almost daily. He is prescribed this for his chronic atrial fibrillation, and has a permanent pacemaker. Plan: Continue daily INRs, continue medication. (7) Hypotension Impression: The patient is prescribed midodrine to support blood pressure that has been prescribed PRN for SBP less than 100, of which he has required one dose today. This is likely a consequence of his acute illness, sepsis. Plan: Continue to monitor vital signs, give midodrine as needed. Qualifiers: Hypotension type: unspecified hypotension type Qualified Code(s): I95.9 - Hypotension, unspecified
[2018-02-10] MEDS: WARFARIN 2.5 MG TABLET PO SCH (14:30)
[2018-02-10] MEDS: cefTRIAXone 1 GM in SODIUM CHLORIDE 0.9% MINIBAG 100 ML IV SCH (21:24)
[2018-02-10] MEDS: MIDODRINE 2.5 MG TABLET PO SCH (21:49)
[2018-02-11] MEDS: SODIUM CHLORIDE FLUSH 0.9% 10 ML SYRINGE IVP SCH ×3 (01:06→17:59)
[2018-02-11] MEDS: MIDODRINE 2.5 MG TABLET PO SCH ×3 (05:03→14:24)
[2018-02-11 05:25] LABS: BASOPHILS % (AUTO) 0.4 %; EOSINOPHILS # (AUTO) 0.1 10^3/uL (0.0-0.7); HGB - HEMOGLOBIN 13.1 g/dL (14.0-18.0); LYMPHOCYTES # (AUTO) 0.8 10^3/uL (1.5-3.5); LYMPHOCYTES % (AUTO) 11.9 %; MEAN CORPUSCULAR HEMOGLOBIN 33.3 pg (27.0-31.0); MEAN CORPUSCULAR HGB CONC 32.7 g/dL (32.0-36.0); MEAN CORPUSCULAR VOLUME 101.8 fL (80.0-94.0); MEAN PLATELET VOLUME 8.3 fL (7.4-11.4); MONOCYTES # (AUTO) 0.8 10^3/uL (0.0-1.0); MONOCYTES % (AUTO) 12.2 %; NEUTROPHILS # (AUTO) 5.1 10^3/uL (1.5-6.6); NEUTROPHILS % (AUTO) 74.5 %; PLT - PLATELET COUNT 155 10^3/uL (130-450); RED BLOOD COUNT 3.94 10^6/uL (4.70-6.10); RED CELL DISTRIBUTION WIDTH 15.1 % (12.0-15.0); WHITE BLOOD COUNT 6.8 x10^3/uL (4.8-10.8)
[2018-02-11 05:29] LABS: INR 2.7 (0.8-1.2); PT - PROTHROMBIN TIME 30.6 secs (9.9-12.6)
[2018-02-11 05:35] LABS: ALBUMIN/GLOBULIN RATIO 0.8 (1.0-2.2); BILIRUBIN,TOTAL 1.2 mg/dL (0.2-1.0); CALCIUM 8.7 mg/dL (8.5-10.3); CREATININE 1.2 mg/dL (0.6-1.2); MAGNESIUM 1.8 mg/dL (1.7-2.8); TOTAL PROTEIN 6.7 g/dL (6.7-8.2)
[2018-02-11] MEDS: DIGOXIN 125 MCG TABLET PO SCH (09:00)
[2018-02-11] MEDS: MULTIVITAMIN TABLET PO SCH (09:01)
[2018-02-11] MEDS: SENNA 8.6 MG TABLET PO SCH (09:01)
[2018-02-11] MEDS: FAMOTIDINE 20 MG TABLET PO SCH (09:01)
[2018-02-11] MEDS: POLYETHYLENE GLYCOL 3350 17 GM PACKET PO SCH (09:01)
[2018-02-11] MEDS: FUROSEMIDE 40 MG/4 ML VIAL IVP SCH ×2 (09:01→20:34)
[2018-02-11] MEDS: DOCUSATE SODIUM 250 MG CAPSULE PO SCH (09:01)
[2018-02-11] MEDS ORDERED: VANCOMYCIN PER PHARMACY 1 GM in SODIUM CHLORIDE 0.9% 250 ML IV SCH (10:00)
[2018-02-11] MEDS ORDERED: VANCOMYCIN INJ 1.75 GM in SODIUM CHLORIDE 0.9% 500 ML IV SCH (11:30)
[2018-02-11] MEDS ORDERED: CYANOCOBALAMIN 500 MCG TABLET PO SCH (12:00)
[2018-02-11] MEDS: SODIUM CHLORIDE FLUSH 0.9% 10 ML SYRINGE IVP PRN (12:05)
[2018-02-11] MEDS: WARFARIN 2.5 MG TABLET PO SCH (14:17)
--- NOTE | 2018-02-11 14:56 | PROVIDER PROGRESS NOTE ---
Subjective - Prog Note Date Prog Note Date: 02/11/18 - Subjective Pt reports feeling: No change Subjective: pt state he feel ok, but does not like his breakfast, eat a little of his breakfast. his cellulitis is limited improved, still present redness, warm, mild edema. Current Medications - Current Medications Current Medications: Active Medications Acetaminophen (Tylenol) 650 mg PO Q4HR PRN PRN Reason: Pain 1 to 4 Hydrocodone Bitart/Acetaminophen ([place] 5/325) 1 tab PO Q4HR PRN PRN Reason: Pain 5 to 7 Cyanocobalamin (Vitamin B-12) 500 mcg PO [id number]@0900 [facility] Last Admin: 02/11/18 12:05 Dose: 500 mcg Digoxin (Lanoxin) 125 mcg PO DAILY [facility] Last Admin: 02/11/18 09:00 Dose: 125 mcg Docusate Sodium (Colace 250mg Capsule) 250 - 500 mg PO DAILY [facility] Last Admin: 02/11/18 09:01 Dose: 250 mg Famotidine (Pepcid) 20 mg PO DAILY [facility] Last Admin: 02/11/18 09:01 Dose: 20 mg Furosemide (Lasix Inj 40 Mg Vial) 40 mg IVP BID [facility] Last Admin: 02/11/18 09:01 Dose: 40 mg Hydralazine HCl (Apresoline Inj) 10 mg IVP Q4HR PRN PRN Reason: sbp>160 Ceftriaxone Sodium 1 gm/ (Sodium Chloride) 100 mls @ 200 mls/hr IV Q24H [facility] Last Infusion: 02/10/18 21:55 Dose: Infused Vancomycin HCl 1 gm/ Sodium (Chloride) 250 mls @ 167 mls/hr IV Q24H [facility] Mineral Oil (Cavilon) 1 applic TOP PRN PRN PRN Reason: Skin Care Last Admin: 02/11/18 05:05 Dose: 1 applic Multivitamins (Theragran) 1 tab PO DAILY [facility] Last Admin: 02/11/18 09:01 Dose: 1 tab Ondansetron HCl (Zofran Inj) 4 mg IVP Q6HR PRN PRN Reason: Nausea / Vomiting Ondansetron HCl (Zofran Odt) 4 mg TL Q6HR PRN PRN Reason: Nausea / Vomiting Polyethylene Glycol (Miralax) 17 gm PO DAILY [facility] Last Admin: 02/11/18 09:01 Dose: 17 gm Senna (Senokot) 8.6 - 17.2 mg PO DAILY [facility] Last Admin: 02/11/18 09:01 Dose: 8.6 mg Sodium Chloride (Normal Saline Flush 0.9%) 10 ml IVP PRN PRN PRN Reason: NEEDED PER PROVIDER ORDERS Last Admin: 02/11/18 12:05 Dose: 10 ml Sodium Chloride (Normal Saline Flush 0.9%) 10 ml IVP 0100,0900,1700 [facility] Last Admin: 02/11/18 09:01 Dose: 10 ml Temazepam (Restoril) 15 mg PO QPM PRN PRN Reason: Insomnia Trazodone HCl (Desyrel) 25 mg PO QPM PRN PRN Reason: Insomnia Warfarin Sodium (Coumadin) 2.5 mg PO QDWARFARIN [facility] Last Admin: 02/11/18 14:17 Dose: 2.5 mg Furosemide 80 mg PO DAILY 04/23/16 Potassium Chloride [K-Dur] 10 meq PO DAILY 04/23/16 Warfarin Sodium 2.5 mg PO SUTUWETHSA@2100 MDD Except on Sun04/23/16 Digoxin 125 mcg PO DAILY 10/31/16 Multivitamin [Theragran] 1 each PO DAILY 07/05/17 Metoprolol Succinate 12.5 mg PO DAILY 10/26/17 Objective - Vital Signs/Intake & Output Reviewed Vital Signs: Yes Vital Signs: Vital Signs x48h Temp Pulse Pulse Resp BP Pulse Ox 02/11/18 14:19 60 126/58 L 02/11/18 08:53 36.5 C 68 22 98 02/11/18 08:00 36.5 C 60 17 112/66 98 Intake & Output: Intake & Output 02/08/18 02/09/18 02/10/18 02/11/18 23:59 23:59 23:59 23:59 Intake Total 600 2180 1175 Output Total 0 200 125 Balance 600 1980 1050 - Objective General Appearance: positive: No acute distress, Alert. negative: Lethargic Eyes Bilateral: positive: Normal inspection, PERRL, No lid inflammation, Conjunctivae nml ENT: positive: ENT inspection nml, Pharynx nml, No signs of dehydration. negative: Purulent nasal drainage, Pharyngeal erythema, Oral lesions Neck: positive: Nml inspection, Thyroid nml, No JVD, Trachea midline. negative: Thyromegaly, Lymphadenopathy (R), Lymphadenopathy (L), Stiff neck, Swelling/bruising, Tracheal deviation Respiratory: positive: Chest non-tender, No respiratory distress, Breath sounds nml. negative: Wheezes, Rales, Rhonchi Cardiovascular: positive: Regular rate & rhythm, No murmur, No gallop, Irregularly irregular. negative: Extrasystoles, Tachycardia, Bradycardia, JVD present, Systolic murmur, Diastolic murmur Peripheral Pulses: 2+ Radial (R), 2+ Radial (L), 2+ Dorsalis pedis (R), 2+ Dorsalis pedis (L) Abdomen: positive: Non-tender, No organomegaly, Nml bowel sounds, No distention. negative: Tenderness, Guarding, Rebound Back: positive: Nml inspection. negative: CVA tenderness (R), CVA tenderness (L) Skin: positive: Color nml, No rash, Warm, Dry. negative: Cyanosis, Diaphoresis, Pallor Extremities: positive: Non-tender, Full ROM, Nml appearance. negative: Calf tenderness, Joint swelling, Aura's sign/cords Neurologic/Psychiatric: positive: Mood/affect nml. negative: Weakness, Sensory loss, Facial droop, Slurred/abnml speech, Depressed mood/affect - Lab Results Fish Bones: 02/11/18 05:19 02/11/18 05:19 Other Labs: Lab Results x24hrs 02/11/18 02/11/18 02/11/18 Range/Units 08:20 05:19 05:19 WBC (4.8-10.8) x10^3/uL RBC (4.70-6.10) 10^6/uL Hgb (14.0-18.0) g/dL Hct (42.0-52.0) % MCV (80.0-94.0) fL MCH (27.0-31.0) pg MCHC (32.0-36.0) g/dL RDW (12.0-15.0) % Plt Count (130-450) 10^3/uL MPV (7.4-11.4) fL Neut # (Auto) (1.5-6.6) 10^3/uL Lymph # (Auto) (1.5-3.5) 10^3/uL [place] # (Auto) (0.0-1.0) 10^3/uL Eos # (Auto) (0.0-0.7) 10^3/uL Baso # (Auto) (0.0-0.1) 10^3/uL Absolute Nucleated RBC x10^3/uL Nucleated RBC % /100WBC PT (9.9-12.6) secs INR (0.8-1.2) Sodium 141 (135-145) mmol/L Potassium 3.8 (3.5-5.0) mmol/L Chloride 96 L (101-111) mmol/L Carbon Dioxide 37 H (21-32) mmol/L Anion Gap 8.0 (6-13) BUN 34 H (6-20) mg/dL Creatinine 1.2 (0.6-1.2) mg/dL Estimated GFR (MDRD) 57 L (>89) Glucose 107 H (70-100) mg/dL Lactic Acid 1.1 (0.5-2.2) mmol/L Calcium 8.7 (8.5-10.3) mg/dL Magnesium 1.8 (1.7-2.8) mg/dL Total Bilirubin 1.2 H (0.2-1.0) mg/dL AST 33 (10-42) IU/L ALT 24 (10-60) IU/L Alkaline Phosphatase 166 H (42-121) IU/L B-Natriuretic Peptide 847 H (5-100) pg/mL Total Protein 6.7 (6.7-8.2) g/dL Albumin 3.0 L (3.2-5.5) g/dL Globulin 3.7 (2.1-4.2) g/dL Albumin/Globulin Ratio 0.8 L (1.0-2.2) 02/11/18 02/11/18 Range/Units 05:19 05:19 WBC 6.8 (4.8-10.8) x10^3/uL RBC 3.94 L (4.70-6.10) 10^6/uL Hgb 13.1 L (14.0-18.0) g/dL Hct 40.1 L (42.0-52.0) % MCV 101.8 H (80.0-94.0) fL MCH 33.3 H (27.0-31.0) pg MCHC 32.7 (32.0-36.0) g/dL RDW 15.1 H (12.0-15.0) % Plt Count 155 (130-450) 10^3/uL MPV 8.3 (7.4-11.4) fL Neut # (Auto) 5.1 (1.5-6.6) 10^3/uL Lymph # (Auto) 0.8 L (1.5-3.5) 10^3/uL [place] # (Auto) 0.8 (0.0-1.0) 10^3/uL Eos # (Auto) 0.1 (0.0-0.7) 10^3/uL Baso # (Auto) 0.0 (0.0-0.1) 10^3/uL Absolute Nucleated RBC 0.01 x10^3/uL Nucleated RBC % 0.1 /100WBC PT 30.6 H (9.9-12.6) secs INR 2.7 H (0.8-1.2) Sodium (135-145) mmol/L Potassium (3.5-5.0) mmol/L Chloride (101-111) mmol/L Carbon Dioxide (21-32) mmol/L Anion Gap (6-13) BUN (6-20) mg/dL Creatinine (0.6-1.2) mg/dL Estimated GFR (MDRD) (>89) Glucose (70-100) mg/dL Lactic Acid (0.5-2.2) mmol/L Calcium (8.5-10.3) mg/dL Magnesium (1.7-2.8) mg/dL Total Bilirubin (0.2-1.0) mg/dL AST (10-42) IU/L ALT (10-60) IU/L Alkaline Phosphatase (42-121) IU/L B-Natriuretic Peptide (5-100) pg/mL Total Protein (6.7-8.2) g/dL Albumin (3.2-5.5) g/dL Globulin (2.1-4.2) g/dL Albumin/Globulin Ratio (1.0-2.2) ABX Reporting Has patient been on IV antibiotics over the past 48 hours?: Yes Sepsis Event Note (H) - Evaluation Current Stage of Sepsis: Sepsis Possible source of Sepsis: positive: Skin/soft tissue - Sepsis Criteria Sepsis Criteria: Respiratory: Increasing oxygen requirements, ANIMAL TRAINER: altered consciousness (unrelated to primary neuro pathology), Renal: urine output less than 0.5ml/kg/hr for 2 hours or creatinine gr, Hepatic: Bilirubin greater than 2mg/dl Assessment/Plan - Problem List (1) Cellulitis Impression: limited improved, still present redness warm, mild edema bilaterally, right more than left lower extremities will add vancomycin plus rocephin elevate bilateral leg Avoid wrapping therapies as this likely made problem worst (2) CKD (chronic kidney disease) stage 2, GFR 60-89 ml/min slightly worsen. pt is on Lasix IV bid 40mg for diastolic CHF hold nephrotoxical agents continue lab monitor (3) Diastolic heart failure, NYHA class 3 EF 55%, slight increase BNP continue fluid restrict Continue IV lasix, monitor electrolytes, (4) Chronic edema slight improved, continue IV lasix, elevate legs past heart, Avoid wrap tx. (5) Pleural effusion due to congestive heart failure limited improved continue Afterload reduction once diuresis improved, daily weights, monitor fluid status, strict I/Os. (6) Chronic anticoagulation Coumadin for Afib continue check PT/INR (7) Hypotension resolved. hold middrive (8) afib HR is controlled, continue Coumadin continue PT/INR (9)advanced dementia as pt's baseline, continue support, consult with palliative care (10) palliative advance care consult with palliative, will followup Qualifiers: Site of cellulitis: extremity Site of cellulitis of extremity: lower extremity Laterality: right Qualified Code(s): L03.115 - Cellulitis of right lower limb
--- NOTE | 2018-02-11 18:09 | CONSULTATION NOTE ---
Palliative Care Follow Up - Referral Referring Provider: Anne GONZALEZ Time of Visit: 11:05-11:55: 3:45-4:15 Referral setting: Hospitalized patient Referral Reason: CHF exac/Cellulitis/FTT - Information Sources Records reviewed: Previous records reviewed History/Review of Systems obtained from: Family ( provided most of history;) Exam limitations: Clinical condition (patient not orientated to place/person;) - History of Present Illness Update Brief HPI Update: This is a 87-year-old gentleman who has had acute decline over the last couple weeks, with increased shortness of breath, titrating his furosemide secondary to pitting lower extremity edema to mid abdomen, scrotal, and into his legs. Concern regarding his cardiac status, had had an echocardiogram last Sunday, home health nurse had been visiting on 02 07 concerned about increasing redness of the bilateral edema, had originally agreed to go to the hospital and then declined after 911 was called. Patient was acutely admitted on 02/09 after patient finally agreed to need to go to the hospital. Patient was having increasing significant weakness, difficulty with voiding though he was saturated in urine, needing maximum assist for transfers, and was admitted with acute cellulitis and exacerbation of his CHF, and right pleural effusion. Patient is on chronic oxygen at bedtime, secondary respiratory failure for his diastolic heart failure, has noted increased pulmonary hypertension, chronic atrial fib on Coumadin, and admitted with hypotension. Patient's baseline, patient is with moderate dementia, does have agitation, anxiety, and wandering behaviors at night. Patient is quite verbally abusive and belligerent to his at times. Family and have noted ongoing cognitive decline, is more cooperative with staff and family members. Patient is disoriented to place, had thought he was in the dentist office, is unable to tell me he is at the hospital. Patient is quite lethargic, slow to respond, and difficulty answering yes/no questions. Patient does have at baseline also lower extremity weakness, walker dependent at home, has frequent falls with loss of balance. Despite frequent falls has not had injury up to this point in time, but has been worsening over time. Patient was ambulatory for short distances about 2 weeks ago, this is declined rapidly, and now is a max to mod assist with transfers and only able to ambulate a few steps. Social History - Living Situation Living arrangement: At home Living Situation: With spouse/s.o. Support System: Home management has been a significant concern, particularly for supporting family members. is been the sole caregiver, with patient's decline in health and increased neuropsychiatric behaviors has become quite exhausted. She herself has underlying health problems as well as balance and concern for her caregiver burnout. Family members are checking on them regularly, but in review with 2 daughters Gail and Tamela, have noted ongoing decline and family aware. They have tried to hire help, and actually had a new caregiver starting today, for 3-4 hours a day. does admit though with patient's decline in function would not be able to meet his care needs at the level of care he needs currently. Medications/Allergies - Medications Active Medication List: Active Medications Acetaminophen (Tylenol) 650 mg PO Q4HR PRN PRN Reason: Pain 1 to 4 Hydrocodone Bitart/Acetaminophen (Linch 5/325) 1 tab PO Q4HR PRN PRN Reason: Pain 5 to 7 Cyanocobalamin (Vitamin B-12) 500 mcg PO [id number] [facility] Last Admin: 02/11/18 12:05 Dose: 500 mcg Digoxin (Lanoxin) 125 mcg PO DAILY [facility] Last Admin: 02/11/18 09:00 Dose: 125 mcg Docusate Sodium (Colace 250mg Capsule) 250 - 500 mg PO DAILY [facility] Last Admin: 02/11/18 09:01 Dose: 250 mg Famotidine (Pepcid) 20 mg PO DAILY [facility] Last Admin: 02/11/18 09:01 Dose: 20 mg Furosemide (Lasix Inj 40 Mg Vial) 40 mg IVP BID [facility] Last Admin: 02/11/18 09:01 Dose: 40 mg Hydralazine HCl (Apresoline Inj) 10 mg IVP Q4HR PRN PRN Reason: sbp>160 Ceftriaxone Sodium 1 gm/ (Sodium Chloride) 100 mls @ 200 mls/hr IV Q24H [facility] Last Infusion: 02/10/18 21:55 Dose: Infused Vancomycin HCl 1 gm/ Sodium (Chloride) 250 mls @ 167 mls/hr IV Q24H [facility] Mineral Oil (Cavilon) 1 applic TOP PRN PRN PRN Reason: Skin Care Last Admin: 02/11/18 05:05 Dose: 1 applic Multivitamins (Theragran) 1 tab PO DAILY [facility] Last Admin: 02/11/18 09:01 Dose: 1 tab Ondansetron HCl (Zofran Inj) 4 mg IVP Q6HR PRN PRN Reason: Nausea / Vomiting Ondansetron HCl (Zofran Odt) 4 mg TL Q6HR PRN PRN Reason: Nausea / Vomiting Polyethylene Glycol (Miralax) 17 gm PO DAILY [facility] Last Admin: 02/11/18 09:01 Dose: 17 gm Senna (Senokot) 8.6 - 17.2 mg PO DAILY [facility] Last Admin: 02/11/18 09:01 Dose: 8.6 mg Sodium Chloride (Normal Saline Flush 0.9%) 10 ml IVP PRN PRN PRN Reason: NEEDED PER PROVIDER ORDERS Last Admin: 02/11/18 12:05 Dose: 10 ml Sodium Chloride (Normal Saline Flush 0.9%) 10 ml IVP 0100,0900,1700 [facility] Last Admin: 02/11/18 17:59 Dose: 10 ml Temazepam (Restoril) 15 mg PO QPM PRN PRN Reason: Insomnia Trazodone HCl (Desyrel) 25 mg PO QPM PRN PRN Reason: Insomnia Warfarin Sodium (Coumadin) 2.5 mg PO QDWARFARIN [facility] Last Admin: 02/11/18 14:17 Dose: 2.5 mg Furosemide 80 mg PO DAILY 04/23/16 Potassium Chloride [K-Dur] 10 meq PO DAILY 04/23/16 Warfarin Sodium 2.5 mg PO SUTUWETHSA@2100 [facility] Except on Sun04/23/16 Digoxin 125 mcg PO DAILY 10/31/16 Multivitamin [Theragran] 1 each PO DAILY 07/05/17 Metoprolol Succinate 12.5 mg PO DAILY 10/26/17 - Allergies Allergies/Adverse Reactions: Allergies Allergy/AdvReac Type Severity Reaction Status Date / Time No Known Drug Allergies Allergy Verified 02/09/18 19:24 Review of Systems - Constitutional Constitutional: reports: Fatigue - Eyes Eyes: reports: Vision loss - Ears, Nose & Throat Ears, Nose & Throat: reports: Hearing loss - Cardiovascular Cardiovascular: reports: Irregular heart rate, Decr. exercise tolerance - Respiratory Respiratory: reports: Orthopnea, SOB at rest, SOB with exertion - Gastrointestinal Gastrointestinal: reports: Constipation (historically), Poor appetite, Early satiety - Genitourinary Genitourinary: reports: Incontinence, Other (edematous scrotum/penis) - Musculoskeletal Musculoskeletal: reports: Stiffness, Muscle weakness, Assistive devices (walker), Transfer issues (mod-max assist for transfers) - Integumentary Integumentary: reports: Dryness, Other (LE cellulitis) - Neurological Neurological: reports: Memory problems - Psychiatric Psychiatric: reports: Anxiety, Behavior disturbances - Endocrine Endocrine: reports: Intolerance to cold - All Other Systems All Other Systems: reports: Other (limited ROS with dementia) Physical Exam - Vital Signs Vital Signs: Vital Signs x48h Temp Pulse Resp BP Pulse Ox 02/11/18 16:00 36.3 C L 71 18 113/64 98 02/11/18 14:19 60 126/58 L - Physical Exam General Appearance: positive: Mild distress, Lethargic Eyes Bilateral: positive: Normal inspection ENT: negative: Pharyngeal erythema Neck: positive: No JVD, Trachea midline Cardiovascular: positive: Irregularly irregular Respiratory: positive: Diminished throughout (Right base without BS) Abdomen: positive: Soft, Nml bowel sounds Skin: positive: Pallor, Dryness, Other (LE venous stasis; bright red/warm to touch; no opening draining wounds) Extremities: positive: Pedal edema (trace to 1+) Neurologic/Psychiatric: positive: Disoriented to place, Disoriented to time, Weakness, Slurred/abnml speech, Flat affect Palliative Care - POLST Patient has POLST: Yes POLST Status: DNR, Selective Treatment Pain: No pain Tiredness/Fatigue: Moderate (4-6) Drowsiness/Sedation: Moderate (4-6) Performance Status: Patient has had an acute decline in his functional status over the last couple weeks, had been declining steadily over the last several months but had made some improvements with physical therapy. Patient had been able to ambulate short distances with his walker, and often was up wandering at night. Patient though is only able to max to mod assist transfer, and ambulate a couple steps with assistance. Patient has been evaluated by physical therapy, with referral to [facility], would be in agreement with this as patient would not be able to be managed at home given his current level of function. Goal would be to improve patient's independence, decrease fall risk, and allow recovery from hospitalization - Palliative Care Discussion: Patient does not present as able to participate in conversation. is quite fearful patient will want to go home, but does admit at this current level of functioning as well as her significant caregiver fatigue she would not be able to care for him safely. There are no identified family members would be able to stay with her, and has been having difficulty finding paid caregiving, had found someone who was to start day for 3-4 hours but realizes this is not adequate at this point in time. We did discuss in the context of goals what she is hoping for. She would like for the infection to be cleared, the edema better controlled, but is able to recognize patient has been declining. reports they had explored hospice earlier in the context of palliative care, home health support has been managing to provide as far as wound care and wraps, as well as one time a week bathing. At that time he did not meet criteria, is interested in revisiting this. Family helps with housework, transportation, herself has significant health problems. "I do not see how he can come home". In reviewing his record, there had been a family meeting with recommendations for looking at application for redd, patient and are legally , she felt like they had too much income, but daughters feel would be worth exploring further. Did discuss as far as goals for transition to SNF, would be to support patient more acutely with rehab services, and evaluate if patient to improve or if will continue to decline. Met later in the afternoon with daughters Gail and Tamela who both provide support, particularly Gail. She has seen significant decline in her father, feels the goals are to not prolong his suffering, but focus on comfort. Was to provide his mother had agreed to correction facility placement, but in agreement with this given patient's decline and her fragility and difficulty managing him with his increased care needs. We did discuss in the context of the bigger picture, this would give an opportunity to see if he would be adaptable to another setting, and what his care needs may end up being. Counseling provided and anticipatory guidance regarding hospice and hospice benefit, but continues not to be 24-hour care though may be more robust than has been receiving with home health. Awaiting review from hospice medical detailist if this is an option if patient does not go to SNF or on discharge from [facility]. Preference is [facility] to allow his to be able to visit, this was passed on to [facility] to send packet as well as hospitalist. Results - Lab Results Lab results reviewed: Yes Fish Bones: 02/11/18 05:19 02/11/18 05:19 Lab and Imaging Results: Lab Results x24hrs 02/11/18 02/11/18 02/11/18 Range/Units 08:20 05:19 05:19 WBC (4.8-10.8) x10^3/uL RBC (4.70-6.10) 10^6/uL Hgb (14.0-18.0) g/dL Hct (42.0-52.0) % MCV (80.0-94.0) fL MCH (27.0-31.0) pg MCHC (32.0-36.0) g/dL RDW (12.0-15.0) % Plt Count (130-450) 10^3/uL MPV (7.4-11.4) fL Neut # (Auto) (1.5-6.6) 10^3/uL Lymph # (Auto) (1.5-3.5) 10^3/uL [place] # (Auto) (0.0-1.0) 10^3/uL Eos # (Auto) (0.0-0.7) 10^3/uL Baso # (Auto) (0.0-0.1) 10^3/uL Absolute Nucleated RBC x10^3/uL Nucleated RBC % /100WBC PT (9.9-12.6) secs INR (0.8-1.2) Sodium 141 (135-145) mmol/L Potassium 3.8 (3.5-5.0) mmol/L Chloride 96 L (101-111) mmol/L Carbon Dioxide 37 H (21-32) mmol/L Anion Gap 8.0 (6-13) BUN 34 H (6-20) mg/dL Creatinine 1.2 (0.6-1.2) mg/dL Estimated GFR (MDRD) 57 L (>89) Glucose 107 H (70-100) mg/dL Lactic Acid 1.1 (0.5-2.2) mmol/L Calcium 8.7 (8.5-10.3) mg/dL Magnesium 1.8 (1.7-2.8) mg/dL Total Bilirubin 1.2 H (0.2-1.0) mg/dL AST 33 (10-42) IU/L ALT 24 (10-60) IU/L Alkaline Phosphatase 166 H (42-121) IU/L B-Natriuretic Peptide 847 H (5-100) pg/mL Total Protein 6.7 (6.7-8.2) g/dL Albumin 3.0 L (3.2-5.5) g/dL Globulin 3.7 (2.1-4.2) g/dL Albumin/Globulin Ratio 0.8 L (1.0-2.2) 02/11/18 02/11/18 Range/Units 05:19 05:19 WBC 6.8 (4.8-10.8) x10^3/uL RBC 3.94 L (4.70-6.10) 10^6/uL Hgb 13.1 L (14.0-18.0) g/dL Hct 40.1 L (42.0-52.0) % MCV 101.8 H (80.0-94.0) fL MCH 33.3 H (27.0-31.0) pg MCHC 32.7 (32.0-36.0) g/dL RDW 15.1 H (12.0-15.0) % Plt Count 155 (130-450) 10^3/uL MPV 8.3 (7.4-11.4) fL Neut # (Auto) 5.1 (1.5-6.6) 10^3/uL Lymph # (Auto) 0.8 L (1.5-3.5) 10^3/uL [place] # (Auto) 0.8 (0.0-1.0) 10^3/uL Eos # (Auto) 0.1 (0.0-0.7) 10^3/uL Baso # (Auto) 0.0 (0.0-0.1) 10^3/uL Absolute Nucleated RBC 0.01 x10^3/uL Nucleated RBC % 0.1 /100WBC PT 30.6 H (9.9-12.6) secs INR 2.7 H (0.8-1.2) Sodium (135-145) mmol/L Potassium (3.5-5.0) mmol/L Chloride (101-111) mmol/L Carbon Dioxide (21-32) mmol/L Anion Gap (6-13) BUN (6-20) mg/dL Creatinine (0.6-1.2) mg/dL Estimated GFR (MDRD) (>89) Glucose (70-100) mg/dL Lactic Acid (0.5-2.2) mmol/L Calcium (8.5-10.3) mg/dL Magnesium (1.7-2.8) mg/dL Total Bilirubin (0.2-1.0) mg/dL AST (10-42) IU/L ALT (10-60) IU/L Alkaline Phosphatase (42-121) IU/L B-Natriuretic Peptide (5-100) pg/mL Total Protein (6.7-8.2) g/dL Albumin (3.2-5.5) g/dL Globulin (2.1-4.2) g/dL Albumin/Globulin Ratio (1.0-2.2) Impression and Recommendations - Palliative Care Impression: This is an 87-year-old gentleman with multiple comorbidities, adding to his ongoing functional and cognitive decline. Patient does have underlying moderate to advanced dementia with neuropsychiatric behaviors, CHF with acute on chronic recent exacerbation, pulmonary hypertension, presents now with cellulitis, atrial fib, and a right pleural effusion. Palliative care to provide support regarding transition planning and anticipatory guidance. Recommendations/Counseling Done: 1. Generalized weakness. Patient does present with acute infection, but has had slow functional decline with acute decline over the last several days now requiring hospitalization. Patient is a moderate to max assist for transfers, has been previously ambulatory. Patient would benefit from evaluation and attempt at rehab to be able to manage him at home. Patient does have a history of multiple falls, these are most likely related to balance as well as impulsivity. They have been on injury up to this point. Would recommend SNF placement, to see if can improve underlying function with improvement of cellulitis. 2.Acute on chronic CHF. Patient does present with resistant and ongoing complications regarding management of his edema, elevated BNP, now presenting with right pleural effusion and baseline breathlessness. He is oxygen dependent. 3. Advanced care planning. Patient does present with symptoms of failure to thrive, concern for ongoing decline in management safely at home. Discussion with family regarding goals of care, patient's quality of life has continued to decline, concern regarding patient's safety and needs being able to be met particularly with this acute hospitalization. Requested review from center director lead teacher regarding eligibillty. This would be reviewed on discharge from SNF, or if patient to transition home can review goals of care and support if indicated. Looking prognostically at patient on the [place] index. At this review subpopul ation of hospitalized adults age 70 and older looking at all cause 1 year mortality. Patient does score an 8. This puts him at a 64% 1 year mortality rate. Risk calculators cannot predict the future for any one individual, but gives an estimate of how many people with similar risk factors will live and , but cannot identify who will live and who will . Time Spent: 70 minutes with greater than 50% of this done in counseling and review of goals of care, anticipatory guidance, recommendations regarding SNF placement and addressing caregiver distress and fatigue. Coordination of care with [employer], hospitalist and hospice medical detailist.
[2018-02-11] MEDS: cefTRIAXone 1 GM in SODIUM CHLORIDE 0.9% MINIBAG 100 ML IV SCH (20:34)
[2018-02-11] MEDS: TEMAZEPAM 15 MG CAPSULE PO PRN (21:54)
[2018-02-12] MEDS: SODIUM CHLORIDE FLUSH 0.9% 10 ML SYRINGE IVP SCH ×3 (00:16→17:01)
[2018-02-12 05:30] LABS: BASOPHILS % (AUTO) 0.4 %; EOSINOPHILS # (AUTO) 0.1 10^3/uL (0.0-0.7); EOSINOPHILS % (AUTO) 1.4 %; HGB - HEMOGLOBIN 12.6 g/dL (14.0-18.0); LYMPHOCYTES # (AUTO) 0.8 10^3/uL (1.5-3.5); MEAN CORPUSCULAR HEMOGLOBIN 32.9 pg (27.0-31.0); MEAN CORPUSCULAR HGB CONC 32.2 g/dL (32.0-36.0); MEAN CORPUSCULAR VOLUME 102.1 fL (80.0-94.0); MEAN PLATELET VOLUME 8.3 fL (7.4-11.4); MONOCYTES # (AUTO) 0.7 10^3/uL (0.0-1.0); MONOCYTES % (AUTO) 11.7 %; NEUTROPHILS # (AUTO) 4.1 10^3/uL (1.5-6.6); NEUTROPHILS % (AUTO) 72.5 %; PLT - PLATELET COUNT 145 10^3/uL (130-450); RED BLOOD COUNT 3.84 10^6/uL (4.70-6.10); RED CELL DISTRIBUTION WIDTH 14.9 % (12.0-15.0); WHITE BLOOD COUNT 5.6 x10^3/uL (4.8-10.8)
[2018-02-12 05:35] LABS: INR 2.8 (0.8-1.2); PT - PROTHROMBIN TIME 30.9 secs (9.9-12.6)
[2018-02-12 05:39] LABS: ALBUMIN/GLOBULIN RATIO 0.9 (1.0-2.2); CALCIUM 8.6 mg/dL (8.5-10.3); TOTAL PROTEIN 6.3 g/dL (6.7-8.2)
[2018-02-12] MEDS ORDERED: POTASSIUM CHLORIDE 20 MEQ TABLET PO SCH (08:05)
[2018-02-12] MEDS: DOCUSATE SODIUM 250 MG CAPSULE PO SCH (08:28)
[2018-02-12] MEDS: DIGOXIN 125 MCG TABLET PO SCH (08:28)
[2018-02-12] MEDS: MULTIVITAMIN TABLET PO SCH (08:28)
[2018-02-12] MEDS: SENNA 8.6 MG TABLET PO SCH (08:28)
[2018-02-12] MEDS: FUROSEMIDE 40 MG/4 ML VIAL IVP SCH ×2 (08:28→21:00)
[2018-02-12] MEDS: POLYETHYLENE GLYCOL 3350 17 GM PACKET PO SCH (08:28)
[2018-02-12] MEDS: FAMOTIDINE 20 MG TABLET PO SCH (08:28)
[2018-02-12] MEDS: LEVOTHYROXINE 25 MCG TABLET PO SCH (13:34)
[2018-02-12] MEDS: WARFARIN 1 MG TABLET PO SCH (13:35)
[2018-02-12] MEDS: VANCOMYCIN INJ 1 GM in SODIUM CHLORIDE 0.9% 250 ML IV SCH (13:35)
[2018-02-12] MEDS: NYSTATIN 500000 UNITS/5 ML UDC PO SCH ×3 (13:35→20:59)
--- NOTE | 2018-02-12 14:05 | PROVIDER PROGRESS NOTE ---
Subjective - Prog Note Date Prog Note Date: 02/12/18 - Subjective Pt reports feeling: No change Subjective: pt continue sleep at morning and difficult to wake up. But pt is hemodynamic stable. Wake up later, pt report he did not have much appetite. Discussed with pt's , for d/c plan. Current Medications - Current Medications Current Medications: Active Medications Acetaminophen (Tylenol) 650 mg PO Q4HR PRN PRN Reason: Pain 1 to 4 Hydrocodone Bitart/Acetaminophen ([place] 5/325) 1 tab PO Q4HR PRN PRN Reason: Pain 5 to 7 Digoxin (Lanoxin) 125 mcg PO DAILY [facility] Last Admin: 02/12/18 08:28 Dose: 125 mcg Docusate Sodium (Colace 250mg Capsule) 250 - 500 mg PO DAILY [facility] Last Admin: 02/12/18 08:28 Dose: 250 mg Famotidine (Pepcid) 20 mg PO DAILY [facility] Last Admin: 02/12/18 08:28 Dose: 20 mg Furosemide (Lasix Inj 40 Mg Vial) 40 mg IVP BID [facility] Last Admin: 02/12/18 08:28 Dose: 40 mg Ceftriaxone Sodium 1 gm/ (Sodium Chloride) 100 mls @ 200 mls/hr IV Q24H [facility] Last Infusion: 02/11/18 21:04 Dose: Infused Vancomycin HCl 1 gm/ Sodium (Chloride) 250 mls @ 167 mls/hr IV Q24H [facility] Last Admin: 02/12/18 13:35 Dose: 167 mls/hr Levothyroxine Sodium (Synthroid) 25 mcg PO QDAC [facility] Last Admin: 02/12/18 13:34 Dose: 25 mcg Mineral Oil (Cavilon) 1 applic TOP PRN PRN PRN Reason: Skin Care Last Admin: 02/11/18 05:05 Dose: 1 applic Multivitamins (Theragran) 1 tab PO DAILY [facility] Last Admin: 02/12/18 08:28 Dose: 1 tab Nystatin (Mycostatin) 5 ml PO QID [facility] Last Admin: 02/12/18 13:35 Dose: 5 ml Ondansetron HCl (Zofran Inj) 4 mg IVP Q6HR PRN PRN Reason: Nausea / Vomiting Ondansetron HCl (Zofran Odt) 4 mg TL Q6HR PRN PRN Reason: Nausea / Vomiting Polyethylene Glycol (Miralax) 17 gm PO DAILY [facility] Last Admin: 02/12/18 08:28 Dose: 17 gm Saccharomyces Boulardii (Florastor) 250 mg PO BIDWM [facility] Senna (Senokot) 8.6 - 17.2 mg PO DAILY [facility] Last Admin: 02/12/18 08:28 Dose: 8.6 mg Sodium Chloride (Normal Saline Flush 0.9%) 10 ml IVP PRN PRN PRN Reason: NEEDED PER PROVIDER ORDERS Last Admin: 02/11/18 12:05 Dose: 10 ml Sodium Chloride (Normal Saline Flush 0.9%) 10 ml IVP 0100,0900,1700 [facility] Last Admin: 02/12/18 08:28 Dose: 10 ml Temazepam (Restoril) 15 mg PO QPM PRN PRN Reason: Insomnia Last Admin: 02/11/18 21:54 Dose: 15 mg Trazodone HCl (Desyrel) 25 mg PO QPM PRN PRN Reason: Insomnia Warfarin Sodium (Coumadin) 2 mg PO QDWARFARIN [facility] Last Admin: 02/12/18 13:35 Dose: 2 mg Furosemide 80 mg PO DAILY 04/23/16 Potassium Chloride [K-Dur] 10 meq PO DAILY 04/23/16 Warfarin Sodium 2.5 mg PO SUTUWETHSA@2100 MDD Except on Sun04/23/16 Digoxin 125 mcg PO DAILY 10/31/16 Multivitamin [Theragran] 1 each PO DAILY 07/05/17 Metoprolol Succinate 12.5 mg PO DAILY 10/26/17 Objective - Vital Signs/Intake & Output Reviewed Vital Signs: Yes Vital Signs: Vital Signs x48h Temp Pulse Pulse Pulse Resp BP BP 02/12/18 11:00 57 L 74 113/57 L 02/12/18 08:43 36.3 C L 66 22 113/71 BP Pulse Ox 02/12/18 11:00 102/56 L 02/12/18 08:43 99 Intake & Output: Intake & Output 02/09/18 02/10/18 02/11/18 02/12/18 23:59 23:59 23:59 23:59 Intake Total 600 2180 1865 1060 Output Total 0 200 125 Balance 600 1980 1740 1060 - Objective General Appearance: positive: No acute distress, Alert. negative: Lethargic Eyes Bilateral: positive: Normal inspection, PERRL, No lid inflammation, Conjunctivae nml ENT: positive: ENT inspection nml, Pharynx nml, No signs of dehydration. negative: Purulent nasal drainage, Pharyngeal erythema, Oral lesions Neck: positive: Nml inspection, Thyroid nml, No JVD, Trachea midline. negative: Thyromegaly, Lymphadenopathy (R), Lymphadenopathy (L), Stiff neck, Swelling/bruising, Tracheal deviation Respiratory: positive: Chest non-tender, No respiratory distress, Breath sounds nml. negative: Wheezes, Rales, Rhonchi Cardiovascular: positive: Regular rate & rhythm, No murmur, No gallop. negative: Irregularly irregular, Extrasystoles, Tachycardia, Bradycardia, JVD present, Systolic murmur, Diastolic murmur Peripheral Pulses: 2+ Radial (R), 2+ Radial (L), 2+ Dorsalis pedis (R), 2+ Dorsalis pedis (L) Abdomen: positive: Non-tender, No organomegaly, Nml bowel sounds, No distention. negative: Tenderness, Guarding, Rebound Back: positive: Nml inspection. negative: CVA tenderness (R), CVA tenderness (L) Skin: positive: Color nml, No rash, Warm, Dry. negative: Cyanosis, Diaphoresis, Pallor Extremities: positive: Non-tender, Nml appearance. negative: Calf tenderness, Joint swelling, Aura's sign/cords Neurologic/Psychiatric: positive: Sensation nml. negative: Weakness, Sensory loss, Facial droop, Slurred/abnml speech, Depressed mood/affect - Lab Results Fish Bones: 02/12/18 05:00 02/12/18 05:00 Other Labs: Lab Results x24hrs 02/12/18 02/12/18 02/12/18 Range/Units 09:11 09:11 05:00 WBC (4.8-10.8) x10^3/uL RBC (4.70-6.10) 10^6/uL Hgb (14.0-18.0) g/dL Hct (42.0-52.0) % MCV (80.0-94.0) fL MCH (27.0-31.0) pg MCHC (32.0-36.0) g/dL RDW (12.0-15.0) % Plt Count (130-450) 10^3/uL MPV (7.4-11.4) fL Neut # (Auto) (1.5-6.6) 10^3/uL Lymph # (Auto) (1.5-3.5) 10^3/uL [place] # (Auto) (0.0-1.0) 10^3/uL Eos # (Auto) (0.0-0.7) 10^3/uL Baso # (Auto) (0.0-0.1) 10^3/uL Absolute Nucleated RBC x10^3/uL Nucleated RBC % /100WBC PT (9.9-12.6) secs INR (0.8-1.2) Sodium (135-145) mmol/L Potassium (3.5-5.0) mmol/L Chloride (101-111) mmol/L Carbon Dioxide (21-32) mmol/L Anion Gap (6-13) BUN (6-20) mg/dL Creatinine (0.6-1.2) mg/dL Estimated GFR (MDRD) (>89) Glucose (70-100) mg/dL Calcium (8.5-10.3) mg/dL Total Bilirubin (0.2-1.0) mg/dL AST (10-42) IU/L ALT (10-60) IU/L Alkaline Phosphatase (42-121) IU/L B-Natriuretic Peptide 795 H (5-100) pg/mL Total Protein (6.7-8.2) g/dL Albumin (3.2-5.5) g/dL Globulin (2.1-4.2) g/dL Albumin/Globulin Ratio (1.0-2.2) TSH 5.67 H (0.34-5.60) uIU/mL Cortisol AM Sample 14.8 ug/dL 02/12/18 02/12/18 02/12/18 Range/Units 05:00 05:00 05:00 WBC 5.6 (4.8-10.8) x10^3/uL RBC 3.84 L (4.70-6.10) 10^6/uL Hgb 12.6 L (14.0-18.0) g/dL Hct 39.3 L (42.0-52.0) % MCV 102.1 H (80.0-94.0) fL MCH 32.9 H (27.0-31.0) pg MCHC 32.2 (32.0-36.0) g/dL RDW 14.9 (12.0-15.0) % Plt Count 145 (130-450) 10^3/uL MPV 8.3 (7.4-11.4) fL Neut # (Auto) 4.1 (1.5-6.6) 10^3/uL Lymph # (Auto) 0.8 L (1.5-3.5) 10^3/uL [place] # (Auto) 0.7 (0.0-1.0) 10^3/uL Eos # (Auto) 0.1 (0.0-0.7) 10^3/uL Baso # (Auto) 0.0 (0.0-0.1) 10^3/uL Absolute Nucleated RBC 0.00 x10^3/uL Nucleated RBC % 0.1 /100WBC PT 30.9 H (9.9-12.6) secs INR 2.8 H (0.8-1.2) Sodium 140 (135-145) mmol/L Potassium 3.2 L (3.5-5.0) mmol/L Chloride 94 L (101-111) mmol/L Carbon Dioxide 37 H (21-32) mmol/L Anion Gap 9.0 (6-13) BUN 30 H (6-20) mg/dL Creatinine 1.0 (0.6-1.2) mg/dL Estimated GFR (MDRD) 70 L (>89) Glucose 101 H (70-100) mg/dL Calcium 8.6 (8.5-10.3) mg/dL Total Bilirubin 1.0 (0.2-1.0) mg/dL AST 33 (10-42) IU/L ALT 23 (10-60) IU/L Alkaline Phosphatase 162 H (42-121) IU/L B-Natriuretic Peptide (5-100) pg/mL Total Protein 6.3 L (6.7-8.2) g/dL Albumin 3.0 L (3.2-5.5) g/dL Globulin 3.3 (2.1-4.2) g/dL Albumin/Globulin Ratio 0.9 L (1.0-2.2) TSH (0.34-5.60) uIU/mL Cortisol AM Sample ug/dL ABX Reporting Has patient been on IV antibiotics over the past 48 hours?: Yes Sepsis Event Note (H) - Evaluation Current Stage of Sepsis: Sepsis Possible source of Sepsis: positive: Skin/soft tissue - Sepsis Criteria Sepsis Criteria: Respiratory: Increasing oxygen requirements, [employer]: altered consciousness (unrelated to primary neuro pathology), Renal: urine output less than 0.5ml/kg/hr for 2 hours or creatinine gr, Hepatic: Bilirubin greater than 2mg/dl Assessment/Plan - Problem List (1) Cellulitis Impression: 02/12 significantly improved, significantly reduced redness, warm. continue antibiotics limited improved, still present redness warm, mild edema bilaterally, right more than left lower extremities will add vancomycin plus rocephin elevate bilateral leg Avoid wrapping therapies as this likely made problem worst (2) CKD (chronic kidney disease) stage 2, GFR 60-89 ml/min stable, hold nephrotoxical agents continue lab monitor slightly worsen. pt is on Lasix IV bid 40mg for diastolic CHF hold nephrotoxical agents continue lab monitor (3) Diastolic heart failure, NYHA class 3 02/12 improved, reduced BNP continue fluid restrict, daily weight, lower sodium diet Continue IV lasix, monitor electrolytes, EF 55%, slight increase BNP continue fluid restrict Continue IV lasix, monitor electrolytes, (4) Chronic edema slight improved, continue IV lasix, elevate legs past heart, Avoid wrap tx. (5) Pleural effusion due to congestive heart failure limited improved continue Afterload reduction once diuresis improved, daily caren ghts, monitor fluid status, strict I/Os. (6) Chronic anticoagulation Coumadin for Afib continue check PT/INR (7) Hypotension resolved. hold middrive (8) afib HR is controlled, continue Coumadin continue PT/INR (9)advanced dementia as pt's baseline, continue support, consult with palliative care (10) palliative advance care 02/12 discuss with pt's about D/C plan. his agree to be d/c to [facility]. consult with palliative, will followup (11) General weakness PT/OT evaluation and treatment, recommend to SNF for continue training. Qualifiers: Site of cellulitis: extremity Site of cellulitis of extremity: lower extremity Laterality: right Qualified Code(s): L03.115 - Cellulitis of right lower limb
[2018-02-12] MEDS: SACCHAROMYCES BOULARDII 250 MG CAPSULE PO SCH (17:01)
--- NOTE | 2018-02-12 18:05 | ADVANCE CARE PLANNING NOTE ---
Advance Care Planning - Date/Time Date: 02/12/18 Time: 09:00 - Purpose of encounter Text: advance care for pt - Parties in attendance Parties in attendance: pt, pt's , DPOA, and me - Decisional capacity Decisional capacity of: pt has been advanced dementia, can not make his own decision. pt's DPOA, caregiver, his make decision for pt. - Subjective/Patient's story Subjective/Patient's story: He feels that he has had more fatigue and congestive heart failure with bilateral leg edema for close to 10 years. He become more sedentary life at home and become less talk with family and friends. He rarely can do any work in the [place], actually has not been able to do anything for recently couples of weeks. He has been getting more more fatigued. More dyspneic on exertion and increasing leg edema, redness. pt's family concern he is getting some infection on his bilateral lower extremities, right more than left. - Objective/Medical story Objective/Medical Story: Patient is an 86-year-old gentleman with a past medical history significant for hypertension, atrial fibrillation on Coumadin, history of pacemaker and diastolic heart failure who presents to the emergency department with a chief complaint of bilateral lower extremities cellulitis. - Goals of Care Goals of care determinations: advance care for pt. DPOA agree to have palliative care consult - Plan Plan: DPOA state she has difficult to take care of pt, she is willing to pt have hospice care and request pt to have 24 hours care at home, but she did not have financial to support pt's 24 hours care. Also pt's DPOA agree to d/c to SNF and may transfer to home with hospice care as well if pt continue to decline - Time Spent on Advance Care Planning Time spent on advance care plannin
--- NOTE | 2018-02-12 18:09 | CONSULTATION NOTE ---
Palliative Care Follow Up - Referral Referring Provider: Anne GONZALEZ Time of Visit: 11:15-11:45 Referral setting: Hospitalized patient Referral Reason: CHF/Cellulitis LE/Dementia/Goals of Care - Information Sources Records reviewed: Previous records reviewed History/Review of Systems obtained from: Family ( at bedsied) Exam limitations: Clinical condition (patient less lethargic; orientated to place no situation/person/or time) - History of Present Illness Update Brief HPI Update: please see HPI yesterday. Patient has improved some from yesterday, he is less lethargic, and somewhat conversant when asked questions. He does not initiate conversations, nor has insight into his current situation. He remains quite weak, Presents with shortness of breath with activity in conversation, is up in chair and has been able to self feed today. Patient complaining of feeling "sick", attributes this to bad taste in his mouth, unable to expand on this. He denies pain, nausea, nor is able to identify anything he is worried or concerned about. at bedside. On examination and removing his dentures, patient does presents with signs of oral candidiasis. Patient does have significantly decreased breath sounds in the right lower lobe to about a third [address] way up. He is easily fatigued and shor t of breath with any kind of conversation or activity. His lower extremity cellulitis remains quite reddened, but less intense, and swelling has improved. Social History - Living Situation Living arrangement: At home Living Situation: With spouse/s.o. Support System: is elderly with significant health problems as well, but she does remain at the bedside and is quite helpful and assisted with his care. She does not perceive given his current level of function, she would be able to support him unless he improved. At this point in time she is hoping for placement at [facility] with the goal for rehab and to evaluate patient's status whether he will improve or and/or continue to decline. Medications/Allergies - Medications Active Medication List: Active Medications Acetaminophen (Tylenol) 650 mg PO Q4HR PRN PRN Reason: Pain 1 to 4 Hydrocodone Bitart/Acetaminophen ([place] 5/325) 1 tab PO Q4HR PRN PRN Reason: Pain 5 to 7 Digoxin (Lanoxin) 125 mcg PO DAILY [facility] Last Admin: 02/12/18 08:28 Dose: 125 mcg Docusate Sodium (Colace 250mg Capsule) 250 - 500 mg PO DAILY [facility] Last Admin: 02/12/18 08:28 Dose: 250 mg Famotidine (Pepcid) 20 mg PO DAILY [facility] Last Admin: 02/12/18 08:28 Dose: 20 mg Furosemide (Lasix Inj 40 Mg Vial) 40 mg IVP BID [facility] Last Admin: 02/12/18 08:28 Dose: 40 mg Ceftriaxone Sodium 1 gm/ (Sodium Chloride) 100 mls @ 200 mls/hr IV Q24H [facility] Last Infusion: 02/11/18 21:04 Dose: Infused Vancomycin HCl 1 gm/ Sodium (Chloride) 250 mls @ 167 mls/hr IV Q24H [facility] Last Infusion: 02/12/18 15:05 Dose: Infused Levothyroxine Sodium (Synthroid) 25 mcg PO QDAC [facility] Last Admin: 02/12/18 13:34 Dose: 25 mcg Mineral Oil (Cavilon) 1 applic TOP PRN PRN PRN Reason: Skin Care Last Admin: 02/11/18 05:05 Dose: 1 applic Multivitamins (Theragran) 1 tab PO DAILY [facility] Last Admin: 02/12/18 08:28 Dose: 1 tab Nystatin (Mycostatin) 5 ml PO QID [facility] Last Admin: 02/12/18 17:01 Dose: 5 ml Ondansetron HCl (Zofran Inj) 4 mg IVP Q6HR PRN PRN Reason: Nausea / Vomiting Ondansetron HCl (Zofran Odt) 4 mg TL Q6HR PRN PRN Reason: Nausea / Vomiting Polyethylene Glycol (Miralax) 17 gm PO DAILY [facility] Last Admin: 02/12/18 08:28 Dose: 17 gm Saccharomyces Boulardii (Florastor) 250 mg PO BIDWM [facility] Last Admin: 02/12/18 17:01 Dose: 250 mg Senna (Senokot) 8.6 - 17.2 mg PO DAILY [facility] Last Admin: 02/12/18 08:28 Dose: 8.6 mg Sodium Chloride (Normal Saline Flush 0.9%) 10 ml IVP PRN PRN PRN Reason: NEEDED PER PROVIDER ORDERS Last Admin: 02/11/18 12:05 Dose: 10 ml Sodium Chloride (Normal Saline Flush 0.9%) 10 ml IVP 0100,0900,1700 [facility] Last Admin: 02/12/18 17:01 Dose: 10 ml Temazepam (Restoril) 15 mg PO QPM PRN PRN Reason: Insomnia Last Admin: 02/11/18 21:54 Dose: 15 mg Trazodone HCl (Desyrel) 25 mg PO QPM PRN PRN Reason: Insomnia Warfarin Sodium (Coumadin) 2 mg PO QDWARFARIN [facility] Last Admin: 02/12/18 13:35 Dose: 2 mg Furosemide 80 mg PO DAILY 04/23/16 Potassium Chloride [K-Dur] 10 meq PO DAILY 04/23/16 Warfarin Sodium 2.5 mg PO SUTUWETHSA@2100 MDD Except on Sun04/23/16 Digoxin 125 mcg PO DAILY 10/31/16 Multivitamin [Theragran] 1 each PO DAILY 07/05/17 Metoprolol Succinate 12.5 mg PO DAILY 10/26/17 - Allergies Allergies/Adverse Reactions: Allergies Allergy/AdvReac Type Severity Reaction Status Date / Time No Known Drug Allergies Allergy Verified 02/09/18 19:24 Review of Systems - Constitutional Constitutional: reports: Fatigue - Eyes Eyes: reports: Vision loss, Corrective lenses - Ears, Nose & Throat Ears, Nose & Throat: reports: Hearing loss, Dentures, Dry mouth, Other (c/o taste changes) - Cardiovascular Cardiovascular: reports: Edema, Exertional dyspnea, Decr. exercise tolerance. denies: Chest pain - Respiratory Respiratory: reports: SOB at rest (noted with conversation or activity), SOB with exertion - Gastrointestinal Gastrointestinal: reports: Constipation, Other (improved intake). denies: Nausea - Genitourinary Genitourinary: reports: Frequency - Musculoskeletal Musculoskeletal: reports: Stiffness, Limited range of motion, Muscle weakness, Assistive devices (difficulty with walker; PT noted; improved endurance), Transfer issues (needing two person assist; cueing;) - Integumentary Integumentary: reports: Dryness - Neurological Neurological: reports: General weakness, Memory problems (less lethargic today; able to answer questions but no insight or understanding to current illness; "I am sick") - Psychiatric Psychiatric: reports: Anxiety, Other (irritable with cueing and redirection) - Endocrine Endocrine: reports: Intolerance to cold - All Other Systems All Other Systems: reports: Other (limited ROS) Physical Exam - Vital Signs Vital Signs: Vital Signs x48h Temp Pulse Pulse Pulse Resp BP BP 02/12/18 15:57 36.3 C L 62 28 H 116/60 02/12/18 11:00 57 L 74 113/57 L BP Pulse Ox 02/12/18 15:57 95 02/12/18 11:00 102/56 L - Physical Exam General Appearance: positive: Moderate distress Eyes Bilateral: positive: Normal inspection ENT: positive: Other (removed dentures: candidiasis with white patches inner cheeks; few scattered spots on tongue) Neck: positive: No JVD, Trachea midline Cardiovascular: positive: Irregularly irregular Respiratory: positive: Other (min breath sounds RLL). negative: Wheezes, Rales, Rhonchi Abdomen: positive: Non-tender, Soft, Nml bowel sounds Skin: positive: Other (LE cellulitis; reddened less erythemia/but still pr onounced) Extremities: positive: Pedal edema (right greater than left; improved from yesterday;) Neurologic/Psychiatric: positive: Disoriented to time, Weakness, Flat affect Palliative Care - POLST Patient has POLST: Yes POLST Status: DNR, Selective Treatment Pain: No pain - Palliative Care Discussion: Discussion with regarding plan of care, she would like him placed in SNF. Goal would be to improve his functional status, evaluate and monitor his cellulitis, and monitor his CHF. Patient had been previously much more functional and needing less assistance, if patient going to return home would need to return to previous level of functioning, though limited was more manageable. We did discuss in the context of his ongoing cognitive and functional decline, now with an acute hospitalization, and review with hospice center medical director could be admitted to hospice. She is quite clear goals of care are not to prolong suffering, to focus on comfort, but at this point in time would like to see if he improves given the acute hospitalization. Explanation was provided regarding rehab stay, and on Medicare A. 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 If patient were to decline or take a turn for the worse, patient would have the option to transition to comfort care, discharge home with hospice, but again reviewed hospice is not 24/7 care and would still need to address caregiving situation if patient were worsening. does verbalize understanding, and wants to move forward on [facility] admit. She lives in [place], and would like him close as she does not drive. This was communicated to hospitalist and [employer]. Patient was present for recommendation from PT as well for SNF placement, patient unable to participate in decision making given his dementia, but was explained he was going to rehab to get stronger. Results - Lab Results Lab results reviewed: Yes Fish Bones: 02/12/18 05:00 02/12/18 05:00 Lab and Imaging Results: Lab Results x24hrs 02/12/18 02/12/18 02/12/18 Range/Units 16:10 09:11 09:11 WBC (4.8-10.8) x10^3/uL RBC (4.70-6.10) 10^6/uL Hgb (14.0-18.0) g/dL Hct (42.0-52.0) % MCV (80.0-94.0) fL MCH (27.0-31.0) pg MCHC (32.0-36.0) g/dL RDW (12.0-15.0) % Plt Count (130-450) 10^3/uL MPV (7.4-11.4) fL Neut # (Auto) (1.5-6.6) 10^3/uL Lymph # (Auto) (1.5-3.5) 10^3/uL Ralls # (Auto) (0.0-1.0) 10^3/uL Eos # (Auto) (0.0-0.7) 10^3/uL Baso # (Auto) (0.0-0.1) 10^3/uL Absolute Nucleated RBC x10^3/uL Nucleated RBC % /100WBC PT (9.9-12.6) secs INR (0.8-1.2) Sodium (135-145) mmol/L Potassium (3.5-5.0) mmol/L Chloride (101-111) mmol/L Carbon Dioxide (21-32) mmol/L Anion Gap (6-13) BUN (6-20) mg/dL Creatinine (0.6-1.2) mg/dL Estimated GFR (MDRD) (>89) Glucose (70-100) mg/dL Calcium (8.5-10.3) mg/dL Total Bilirubin (0.2-1.0) mg/dL AST (10-42) IU/L ALT (10-60) IU/L Alkaline Phosphatase (42-121) IU/L B-Natriuretic Peptide (5-100) pg/mL Total Protein (6.7-8.2) g/dL Albumin (3.2-5.5) g/dL Globulin (2.1-4.2) g/dL Albumin/Globulin Ratio (1.0-2.2) TSH 5.67 H (0.34-5.60) uIU/mL Cortisol AM Sample 14.8 ug/dL Cortisol 4pm Sample 13.8 ug/dL 02/12/18 02/12/18 02/12/18 Range/Units 05:00 05:00 05:00 WBC 5.6 (4.8-10.8) x10^3/uL RBC 3.84 L (4.70-6.10) 10^6/uL Hgb 12.6 L (14.0-18.0) g/dL Hct 39.3 L (42.0-52.0) % MCV 102.1 H (80.0-94.0) fL MCH 32.9 H (27.0-31.0) pg MCHC 32.2 (32.0-36.0) g/dL RDW 14.9 (12.0-15.0) % Plt Count 145 (130-450) 10^3/uL MPV 8.3 (7.4-11.4) fL Neut # (Auto) 4.1 (1.5-6.6) 10^3/uL Lymph # (Auto) 0.8 L (1.5-3.5) 10^3/uL Ralls # (Auto) 0.7 (0.0-1.0) 10^3/uL Eos # (Auto) 0.1 (0.0-0.7) 10^3/uL Baso # (Auto) 0.0 (0.0-0.1) 10^3/uL Absolute Nucleated RBC 0.00 x10^3/uL Nucleated RBC % 0.1 /100WBC PT (9.9-12.6) secs INR (0.8-1.2) Sodium 140 (135-145) mmol/L Potassium 3.2 L (3.5-5.0) mmol/L Chloride 94 L (101-111) mmol/L Carbon Dioxide 37 H (21-32) mmol/L Anion Gap 9.0 (6-13) BUN 30 H (6-20) mg/dL Creatinine 1.0 (0.6-1.2) mg/dL Estimated GFR (MDRD) 70 L (>89) Glucose 101 H (70-100) mg/dL Calcium 8.6 (8.5-10.3) mg/dL Total Bilirubin 1.0 (0.2-1.0) mg/dL AST 33 (10-42) IU/L ALT 23 (10-60) IU/L Alkaline Phosphatase 162 H (42-121) IU/L B-Natriuretic Peptide 795 H (5-100) pg/mL Total Protein 6.3 L (6.7-8.2) g/dL Albumin 3.0 L (3.2-5.5) g/dL Globulin 3.3 (2.1-4.2) g/dL Albumin/Globulin Ratio 0.9 L (1.0-2.2) TSH (0.34-5.60) uIU/mL Cortisol AM Sample ug/dL Cortisol 4pm Sample ug/dL 02/12/18 Range/Units 05:00 WBC (4.8-10.8) x10^3/uL RBC (4.70-6.10) 10^6/uL Hgb (14.0-18.0) g/dL Hct (42.0-52.0) % MCV (80.0-94.0) fL MCH (27.0-31.0) pg MCHC (32.0-36.0) g/dL RDW (12.0-15.0) % Plt Count (130-450) 10^3/uL MPV (7.4-11.4) fL Neut # (Auto) (1.5-6.6) 10^3/uL Lymph # (Auto) (1.5-3.5) 10^3/uL Ralls # (Auto) (0.0-1.0) 10^3/uL Eos # (Auto) (0.0-0.7) 10^3/uL Baso # (Auto) (0.0-0.1) 10^3/uL Absolute Nucleated RBC x10^3/uL Nucleated RBC % /100WBC PT 30.9 H (9.9-12.6) secs INR 2.8 H (0.8-1.2) Sodium (135-145) mmol/L Potassium (3.5-5.0) mmol/L Chloride (101-111) mmol/L Carbon Dioxide (21-32) mmol/L Anion Gap (6-13) BUN (6-20) mg/dL Creatinine (0.6-1.2) mg/dL Estimated GFR (MDRD) (>89) Glucose (70-100) mg/dL Calcium (8.5-10.3) mg/dL Total Bilirubin (0.2-1.0) mg/dL AST (10-42) IU/L ALT (10-60) IU/L Alkaline Phosphatase (42-121) IU/L B-Natriuretic Peptide (5-100) pg/mL Total Protein (6.7-8.2) g/dL Albumin (3.2-5.5) g/dL Globulin (2.1-4.2) g/dL Albumin/Globulin Ratio (1.0-2.2) TSH (0.34-5.60) uIU/mL Cortisol AM Sample ug/dL Cortisol 4pm Sample ug/dL Impression and Recommendations - Palliative Care Impression: This is an 87-year-old gentleman who has had ongoing cognitive and functional decline, presents with multiple comorbidities, with an acute hospitalization for cellulitis and exacerbation of his CHF. He remains quite frail, had improved some on home physical therapy, goal is to discharge to SNF with hope to return to previous level of functioning. Family aware patient at high risk for ongoing decline, secondary to advanced age and frailty. Palliative care providing support regarding transition planning. Recommendations/Counseling Done: 1. Oral candidiasis. Follow-up with hospitalist regarding ordering nystatin, reminded nursing patient does need dentures removed prior to providing medication for it to be effective. 2. Generalized weakness. Patient has had slight improvement over the last 24 hours, goal is to focus on rehab in the context of seeing if patient can improve functional status. Awaiting final outcome of [facility] acceptance or not. 3. Advanced care planning. Patient's current level of functioning would make transition home without 24/7 assistance for not feasible. Goal at this time is to evaluate if patient can show improvement, return to previous level of functioning, and will need transition plan based on outcome of rehab stay. Current goals of patient were to decline further, to transition to comfort and/or hospice care depending on setting. Counseling provided regarding the continuum of care, Medicare hospice benefit provisions and limitations, as well as concern for caregiver fatigue. Time Spent: 45 minutes with greater than 50% of this done in counseling regarding anticip atory guidance, review of continuum of care, and decision made if accepted to go to [facility]. Patient current with palliative care and can be followed in the SNF.
[2018-02-12] MEDS: TEMAZEPAM 15 MG CAPSULE PO PRN (20:59)
[2018-02-12] MEDS: SODIUM CHLORIDE FLUSH 0.9% 10 ML SYRINGE IVP PRN (21:00)
[2018-02-12] MEDS: cefTRIAXone 1 GM in SODIUM CHLORIDE 0.9% MINIBAG 100 ML IV SCH (21:00)
[2018-02-13] MEDS: SODIUM CHLORIDE FLUSH 0.9% 10 ML SYRINGE IVP SCH ×3 (00:03→16:43)
[2018-02-13 05:04] LABS: BASOPHILS % (AUTO) 0.5 %; EOSINOPHILS # (AUTO) 0.1 10^3/uL (0.0-0.7); EOSINOPHILS % (AUTO) 1.2 %; HGB - HEMOGLOBIN 13.2 g/dL (14.0-18.0); LYMPHOCYTES # (AUTO) 0.5 10^3/uL (1.5-3.5); LYMPHOCYTES % (AUTO) 10.6 %; MEAN CORPUSCULAR HGB CONC 32.4 g/dL (32.0-36.0); MEAN CORPUSCULAR VOLUME 101.9 fL (80.0-94.0); MEAN PLATELET VOLUME 8.5 fL (7.4-11.4); MONOCYTES # (AUTO) 0.6 10^3/uL (0.0-1.0); MONOCYTES % (AUTO) 12.5 %; NEUTROPHILS # (AUTO) 3.9 10^3/uL (1.5-6.6); NEUTROPHILS % (AUTO) 75.2 %; PLT - PLATELET COUNT 143 10^3/uL (130-450); RED BLOOD COUNT 4.01 10^6/uL (4.70-6.10); RED CELL DISTRIBUTION WIDTH 14.7 % (12.0-15.0); WHITE BLOOD COUNT 5.1 x10^3/uL (4.8-10.8)
[2018-02-13 05:22] LABS: ALBUMIN/GLOBULIN RATIO 0.8 (1.0-2.2); CALCIUM 8.8 mg/dL (8.5-10.3); CREATININE 1.1 mg/dL (0.6-1.2); TOTAL PROTEIN 6.7 g/dL (6.7-8.2)
[2018-02-13 05:23] LABS: INR 2.4 (0.8-1.2); PT - PROTHROMBIN TIME 26.7 secs (9.9-12.6)
[2018-02-13 05:25] LABS: T4 (THYROXINE) 12.19 ug/dL (6.09-12.23)
[2018-02-13 05:32] LABS: FREE T4 (FREE THYROXINE) 0.93 ng/dL (0.58-1.64)
[2018-02-13] MEDS ORDERED: CYANOCOBALAMIN 500 MCG TABLET PO SCH (09:00)
[2018-02-13] MEDS: SACCHAROMYCES BOULARDII 250 MG CAPSULE PO SCH ×2 (09:16→16:43)
[2018-02-13] MEDS: POLYETHYLENE GLYCOL 3350 17 GM PACKET PO SCH (09:16)
[2018-02-13] MEDS: NYSTATIN 500000 UNITS/5 ML UDC PO SCH ×4 (09:16→20:57)
[2018-02-13] MEDS: DOCUSATE SODIUM 250 MG CAPSULE PO SCH (09:17)
[2018-02-13] MEDS: MULTIVITAMIN TABLET PO SCH (09:17)
[2018-02-13] MEDS: FAMOTIDINE 20 MG TABLET PO SCH (09:17)
[2018-02-13] MEDS: SENNA 8.6 MG TABLET PO SCH (09:17)
[2018-02-13] MEDS: LEVOTHYROXINE 25 MCG TABLET PO SCH (09:17)
[2018-02-13] MEDS: DIGOXIN 125 MCG TABLET PO SCH (09:17)
[2018-02-13] MEDS: FUROSEMIDE 40 MG/4 ML VIAL IVP SCH ×2 (09:17→21:08)
[2018-02-13] MEDS: VANCOMYCIN INJ 1 GM in SODIUM CHLORIDE 0.9% 250 ML IV SCH (13:01)
[2018-02-13] MEDS: WARFARIN 1 MG TABLET PO SCH (13:01)
--- NOTE | 2018-02-13 15:50 | PROVIDER PROGRESS NOTE ---
Subjective - Prog Note Date Prog Note Date: 02/13/18 - Subjective Pt reports feeling: No change Subjective: pt is with advanced dementia as his baseline. Pt's state she can not take care of pt more because of her own medical and physical limitation. [facility] both decline to accept pt today. Pt's and daughter is willing to choose hospice care for pt. Palliative care provider was called, Mariah Connolly discussed with pt's family about d/c plan. Family agree to have hospice care. [facility] will assess pt. Hospice care open on tomorrow afternoon for pt at [facility]. Current Medications - Current Medications Current Medications: Active Medications Acetaminophen (Tylenol) 650 mg PO Q4HR PRN PRN Reason: Pain 1 to 4 Hydrocodone Bitart/Acetaminophen ([place] 5/325) 1 tab PO Q4HR PRN PRN Reason: Pain 5 to 7 Digoxin (Lanoxin) 125 mcg PO DAILY [facility] Last Admin: 02/13/18 09:17 Dose: 125 mcg Docusate Sodium (Colace 250mg Capsule) 250 - 500 mg PO DAILY [facility] Last Admin: 02/13/18 09:17 Dose: 250 mg Famotidine (Pepcid) 20 mg PO DAILY [facility] Last Admin: 02/13/18 09:17 Dose: 20 mg Furosemide (Lasix Inj 40 Mg Vial) 40 mg IVP BID [facility] Last Admin: 02/13/18 09:17 Dose: 40 mg Ceftriaxone Sodium 1 gm/ (Sodium Chloride) 100 mls @ 200 mls/hr IV Q24H [facility] Last Infusion: 02/12/18 21:30 Dose: Infused Vancomycin HCl 1 gm/ Sodium (Chloride) 250 mls @ 167 mls/hr IV Q24H [facility] Last Infusion: 02/13/18 14:31 Dose: Infused Levothyroxine Sodium (Synthroid) 25 mcg PO QDAC [facility] Last Admin: 02/13/18 09:17 Dose: 25 mcg Mineral Oil (Cavilon) 1 applic TOP PRN PRN PRN Reason: Skin Care Last Admin: 02/11/18 05:05 Dose: 1 applic Multivitamins (Theragran) 1 tab PO DAILY [facility] Last Admin: 02/13/18 09:17 Dose: 1 tab Nystatin (Mycostatin) 5 ml PO QID [facility] Last Admin: 02/13/18 13:01 Dose: 5 ml Ondansetron HCl (Zofran Inj) 4 mg IVP Q6HR PRN PRN Reason: Nausea / Vomiting Ondansetron HCl (Zofran Odt) 4 mg TL Q6HR PRN PRN Reason: Nausea / Vomiting Polyethylene Glycol (Miralax) 17 gm PO DAILY [facility] Last Admin: 02/13/18 09:16 Dose: 17 gm Saccharomyces Boulardii (Florastor) 250 mg PO BIDWM [facility] Last Admin: 02/13/18 09:16 Dose: 250 mg Senna (Senokot) 8.6 - 17.2 mg PO DAILY [facility] Last Admin: 02/13/18 09:17 Dose: 8.6 mg Sodium Chloride (Normal Saline Flush 0.9%) 10 ml IVP PRN PRN PRN Reason: NEEDED PER PROVIDER ORDERS Last Admin: 02/12/18 21:00 Dose: 10 ml Sodium Chloride (Normal Saline Flush 0.9%) 10 ml IVP 0100,0900,1700 [facility] Last Admin: 02/13/18 09:18 Dose: 10 ml Temazepam (Restoril) 15 mg PO QPM PRN PRN Reason: Insomnia Last Admin: 02/12/18 20:59 Dose: 15 mg Trazodone HCl (Desyrel) 25 mg PO QPM PRN PRN Reason: Insomnia Warfarin Sodium (Coumadin) 2 mg PO QDWARFARIN [facility] Last Admin: 02/13/18 13:01 Dose: 2 mg Furosemide 80 mg PO DAILY 04/23/16 Potassium Chloride [K-Dur] 10 meq PO DAILY 04/23/16 Warfarin Sodium 2.5 mg PO SUTUWETHSA@2100 MDD Except on Sun04/23/16 Digoxin 125 mcg PO DAILY 10/31/16 Multivitamin [Theragran] 1 each PO DAILY 07/05/17 Metoprolol Succinate 12.5 mg PO DAILY 10/26/17 Objective - Vital Signs/Intake & Output Reviewed Vital Signs: Yes Vital Signs: Vital Signs x48h Temp Pulse Pulse Pulse Pulse Pulse Pulse 02/13/18 15:36 36.4 C L 63 02/13/18 11:24 61 60 82 02/13/18 10:00 60 82 02/13/18 08:00 36.4 C L 62 Pulse Resp Resp BP BP BP BP 02/13/18 15:36 18 118/60 02/13/18 11:24 64 15 101/67 102/46 L 02/13/18 10:00 62 102/46 L 02/13/18 08:00 18 128/63 BP BP BP Pulse Ox Pulse Ox Pulse Ox 02/13/18 15:36 93 02/13/18 11:24 119/59 L 156/61 H 82 L 91 L 02/13/18 10:00 119/59 L 128/63 02/13/18 08:00 96 Intake & Output: Intake & Output 02/10/18 02/11/18 02/12/18 02/13/18 23:59 23:59 23:59 23:59 Intake Total 2180 1865 1760 730 Output Total 200 125 760 500 Balance 1980 1740 1000 230 - Objective General Appearance: positive: No acute distress, Alert. negative: Lethargic Eyes Bilateral: positive: Normal inspection, PERRL, No lid inflammation ENT: positive: ENT inspection nml, Pharynx nml, No signs of dehydration. negative: Purulent nasal drainage, Pharyngeal erythema, Oral lesions Neck: positive: Nml inspection, Thyroid nml, No JVD, Trachea midline. negative: Thyromegaly, Lymphadenopathy (R), Lymphadenopathy (L), Stiff neck, Swelling/bruising, Tracheal deviation Respiratory: positive: Chest non-tender, No respiratory distress. negative: Wheezes, Rales Cardiovascular: positive: Regular rate & rhythm, No murmur, No gallop. n egative: Irregularly irregular, Extrasystoles, Tachycardia, Bradycardia, JVD present, Systolic murmur, Diastolic murmur Peripheral Pulses: 2+ Radial (R), 2+ Radial (L), 2+ Dorsalis pedis (R), 2+ Dorsalis pedis (L) Abdomen: positive: Non-tender, No organomegaly, Nml bowel sounds, No distention. negative: Tenderness, Guarding, Rebound Back: positive: Nml inspection Skin: positive: Color nml, No rash, Warm, Dry. negative: Cyanosis, Diaphoresis, Pallor Extremities: positive: Non-tender, Nml appearance. negative: Calf tenderness, Joint swelling, Aura's sign/cords Neurologic/Psychiatric: negative: Weakness, Sensory loss, Facial droop, Slurred/abnml speech, Depressed mood/affect - Lab Results Fish Bones: 02/13/18 04:40 02/13/18 04:40 Other Labs: Lab Results x24hrs 02/13/18 02/13/18 02/13/18 Range/Units 04:40 04:40 04:40 WBC (4.8-10.8) x10^3/uL RBC (4.70-6.10) 10^6/uL Hgb (14.0-18.0) g/dL Hct (42.0-52.0) % MCV (80.0-94.0) fL MCH (27.0-31.0) pg MCHC (32.0-36.0) g/dL RDW (12.0-15.0) % Plt Count (130-450) 10^3/uL MPV (7.4-11.4) fL Neut # (Auto) (1.5-6.6) 10^3/uL Lymph # (Auto) (1.5-3.5) 10^3/uL [place] # (Auto) (0.0-1.0) 10^3/uL Eos # (Auto) (0.0-0.7) 10^3/uL Baso # (Auto) (0.0-0.1) 10^3/uL Absolute Nucleated RBC x10^3/uL Nucleated RBC % /100WBC PT (9.9-12.6) secs INR (0.8-1.2) Sodium 142 (135-145) mmol/L Potassium 3.5 (3.5-5.0) mmol/L Chloride 92 L (101-111) mmol/L Carbon Dioxide 36 H (21-32) mmol/L Anion Gap 14.0 H (6-13) BUN 29 H (6-20) mg/dL Creatinine 1.1 (0.6-1.2) mg/dL Estimated GFR (MDRD) 63 L (>89) Glucose 123 H (70-100) mg/dL Calcium 8.8 (8.5-10.3) mg/dL Total Bilirubin 1.0 (0.2-1.0) mg/dL AST 31 (10-42) IU/L ALT 24 (10-60) IU/L Alkaline Phosphatase 181 H (42-121) IU/L B-Natriuretic Peptide 796 H (5-100) pg/mL Total Protein 6.7 (6.7-8.2) g/dL Albumin 3.0 L (3.2-5.5) g/dL Globulin 3.7 (2.1-4.2) g/dL Albumin/Globulin Ratio 0.8 L (1.0-2.2) Free T4 0.93 (0.58-1.64) ng/dL Thyroxine (T4) 12.19 (6.09-12.23) ug/dL Cortisol PM Sample ug/dL Cortisol 4pm Sample ug/dL 02/13/18 02/13/18 02/12/18 Range/Units 04:40 04:40 20:02 WBC 5.1 (4.8-10.8) x10^3/uL RBC 4.01 L (4.70-6.10) 10^6/uL Hgb 13.2 L (14.0-18.0) g/dL Hct 40.9 L (42.0-52.0) % MCV 101.9 H (80.0-94.0) fL MCH 33.0 H (27.0-31.0) pg MCHC 32.4 (32.0-36.0) g/dL RDW 14.7 (12.0-15.0) % Plt Count 143 (130-450) 10^3/uL MPV 8.5 (7.4-11.4) fL Neut # (Auto) 3.9 (1.5-6.6) 10^3/uL Lymph # (Auto) 0.5 L (1.5-3.5) 10^3/uL [place] # (Auto) 0.6 (0.0-1.0) 10^3/uL Eos # (Auto) 0.1 (0.0-0.7) 10^3/uL Baso # (Auto) 0.0 (0.0-0.1) 10^3/uL Absolute Nucleated RBC 0.00 x10^3/uL Nucleated RBC % 0.1 /100WBC PT 26.7 H (9.9-12.6) secs INR 2.4 H (0.8-1.2) Sodium (135-145) mmol/L Potassium (3.5-5.0) mmol/L Chloride (101-111) mmol/L Carbon Dioxide (21-32) mmol/L Anion Gap (6-13) BUN (6-20) mg/dL Creatinine (0.6-1.2) mg/dL Estimated GFR (MDRD) (>89) Glucose (70-100) mg/dL Calcium (8.5-10.3) mg/dL Total Bilirubin (0.2-1.0) mg/dL AST (10-42) IU/L ALT (10-60) IU/L Alkaline Phosphatase (42-121) IU/L B-Natriuretic Peptide (5-100) pg/mL Total Protein (6.7-8.2) g/dL Albumin (3.2-5.5) g/dL Globulin (2.1-4.2) g/dL Albumin/Globulin Ratio (1.0-2.2) Free T4 (0.58-1.64) ng/dL Thyroxine (T4) (6.09-12.23) ug/dL Cortisol PM Sample 16.5 ug/dL Cortisol 4pm Sample ug/dL 02/12/18 Range/Units 16:10 WBC (4.8-10.8) x10^3/uL RBC (4.70-6.10) 10^6/uL Hgb (14.0-18.0) g/dL Hct (42.0-52.0) % MCV (80.0-94.0) fL MCH (27.0-31.0) pg MCHC (32.0-36.0) g/dL RDW (12.0-15.0) % Plt Count (130-450) 10^3/uL MPV (7.4-11.4) fL Neut # (Auto) (1.5-6.6) 10^3/uL Lymph # (Auto) (1.5-3.5) 10^3/uL [place] # (Auto) (0.0-1.0) 10^3/uL Eos # (Auto) (0.0-0.7) 10^3/uL Baso # (Auto) (0.0-0.1) 10^3/uL Absolute Nucleated RBC x10^3/uL Nucleated RBC % /100WBC PT (9.9-12.6) secs INR (0.8-1.2) Sodium (135-145) mmol/L Potassium (3.5-5.0) mmol/L Chloride (101-111) mmol/L Carbon Dioxide (21-32) mmol/L Anion Gap (6-13) BUN (6-20) mg/dL Creatinine (0.6-1.2) mg/dL Estimated GFR (MDRD) (>89) Glucose (70-100) mg/dL Calcium (8.5-10.3) mg/dL Total Bilirubin (0.2-1.0) mg/dL AST (10-42) IU/L ALT (10-60) IU/L Alkaline Phosphatase (42-121) IU/L B-Natriuretic Peptide (5-100) pg/mL Total Protein (6.7-8.2) g/dL Albumin (3.2-5.5) g/dL Globulin (2.1-4.2) g/dL Albumin/Globulin Ratio (1.0-2.2) Free T4 (0.58-1.64) ng/dL Thyroxine (T4) (6.09-12.23) ug/dL Cortisol PM Sample ug/dL Cortisol 4pm Sample 13.8 ug/dL ABX Reporting Has patient been on IV antibiotics over the past 48 hours?: Yes Sepsis Event Note (H) - Evaluation Current Stage of Sepsis: Sepsis Possible source of Sepsis: positive: Skin/soft tissue - Sepsis Criteria Sepsis Criteria: Respiratory: Increasing oxygen requirements, PHARMACY INTAKE COORDINATOR: altered consciousness (unrelated to primary neuro pathology), Renal: urine output less than 0.5ml/kg/hr for 2 hours or creatinine gr, Hepatic: Bilirubin greater than 2mg/dl Assessment/Plan - Problem List (1) Cellulitis Impression: 02/13 significant bilateral foot edema remain the similar. cellulitis is improved, reduced swelling, redness. add Morphine PRN for pain 02/12 significantly improved, significantly reduced redness, warm. continue antibiotics limited improved, still present redness warm, mild edema bilaterally, right more than left lower extremities will add vancomycin plus rocephin elevate bilateral leg Avoid wrapping therapies as this likely made problem worst (2) hospice care 02/13 pt's physical decondition with continuing decline, diastolic heart failure, advanced dementia. pt's and daughter are willing to choose hospice care for pt. [facility] nurse facility will assess pt, hospice will open on tomorrow afternoon family agree to have comfortable care for pt, add Morphine PRN for pain. (3) CKD (chronic kidney disease) stage 2, GFR 60-89 ml/min stable, hold nephrotoxical agents continue lab monitor slightly worsen. pt is on Lasix IV bid 40mg for diastolic CHF hold nephrotoxical agents continue lab monitor (4) Diastolic heart failure, NYHA class 3 02/13 BNP is remain the similar, 796. comfortable care for pt 02/12 improved, reduced BNP continue fluid restrict, daily weight, lower sodium diet Continue IV lasix, monitor electrolytes, EF 55%, slight increase BNP continue fluid restrict Continue IV lasix, monitor electrolytes, (5) Chronic edema slight improved, continue IV lasix, elevate legs past heart, Avoid wrap tx. (6) Pleural effusion due to congestive heart failure limited improved continue Afterload reduction once diuresis improved, daily weights, monitor fluid status, strict I/Os. (7) Chronic anticoagulation Coumadin for Afib continue check PT/INR (8) Hypotension resolved. hold middrive (9) afib HR is controlled, continue Coumadin continue PT/INR (10)advanced dementia 02/13, pt remain advanced dementia status, family choose comfortable care and transfer pt to hospice care. as pt's baseline, continue support, consult with palliative care (11) physical decondition 02/13 SNF decline to accept. pt's family choose comfortable care, and transition pt to hospice care. Qualifiers: Site of cellulitis: extremity Site of cellulitis of extremity: lower extremity Laterality: right Qualified Code(s): L03.115 - Cellulitis of right lower limb (5) Hypotension Qualifiers: Hypotension type: unspecified hypotension type Qualified Code(s): I95.9 - Hypotension, unspecified
[2018-02-13] MEDS ORDERED: MORPHINE SOL 10 MG/0.5 ML SYRINGE PO PRN (16:15)
--- NOTE | 2018-02-13 20:11 | CONSULTATION NOTE ---
Palliative Care Follow Up - Referral Referring Provider: Siddhartha GONZALEZ Time of Visit: 12:25-1:15 Referral setting: Hospitalized patient Referral Reason: CHF/Cellulitis/Goals of Care - Information Sources Records reviewed: Previous records reviewed History/Review of Systems obtained from: Family Medications/Allergies - Medications Active Medication List: Active Medications Acetaminophen (Tylenol) 650 mg PO Q4HR PRN PRN Reason: Pain 1 to 4 Hydrocodone Bitart/Acetaminophen ([place] 5/325) 1 tab PO Q4HR PRN PRN Reason: Pain 5 to 7 Digoxin (Lanoxin) 125 mcg PO DAILY [facility] Last Admin: 02/13/18 09:17 Dose: 125 mcg Docusate Sodium (Colace 250mg Capsule) 250 - 500 mg PO DAILY [facility] Last Admin: 02/13/18 09:17 Dose: 250 mg Famotidine (Pepcid) 20 mg PO DAILY [facility] Last Admin: 02/13/18 09:17 Dose: 20 mg Furosemide (Lasix Inj 40 Mg Vial) 40 mg IVP BID [facility] Last Admin: 02/13/18 09:17 Dose: 40 mg Ceftriaxone Sodium 1 gm/ (Sodium Chloride) 100 mls @ 200 mls/hr IV Q24H [facility] Last Infusion: 02/12/18 21:30 Dose: Infused Vancomycin HCl 1 gm/ Sodium (Chloride) 250 mls @ 167 mls/hr IV Q24H [facility] Last Infusion: 02/13/18 14:31 Dose: Infused Levothyroxine Sodium (Synthroid) 25 mcg PO QDAC [facility] Last Admin: 02/13/18 09:17 Dose: 25 mcg Mineral Oil (Cavilon) 1 applic TOP PRN PRN PRN Reason: Skin Care Last Admin: 02/11/18 05:05 Dose: 1 applic Morphine Sulfate (Roxanol) 5 mg PO Q2HR PRN PRN Reason: PAIN Multivitamins (Theragran) 1 tab PO DAILY [facility] Last Admin: 02/13/18 09:17 Dose: 1 tab Nystatin (Mycostatin) 5 ml PO QID [facility] Last Admin: 02/13/18 16:43 Dose: 5 ml Ondansetron HCl (Zofran Inj) 4 mg IVP Q6HR PRN PRN Reason: Nausea / Vomiting Ondansetron HCl (Zofran Odt) 4 mg TL Q6HR PRN PRN Reason: Nausea / Vomiting Polyethylene Glycol (Miralax) 17 gm PO DAILY [facility] Last Admin: 02/13/18 09:16 Dose: 17 gm Saccharomyces Boulardii (Florastor) 250 mg PO BIDWM [facility] Last Admin: 02/13/18 16:43 Dose: 250 mg Senna (Senokot) 8.6 - 17.2 mg PO DAILY [facility] Last Admin: 02/13/18 09:17 Dose: 8.6 mg Sodium Chloride (Normal Saline Flush 0.9%) 10 ml IVP PRN PRN PRN Reason: NEEDED PER PROVIDER ORDERS Last Admin: 02/12/18 21:00 Dose: 10 ml Sodium Chloride (Normal Saline Flush 0.9%) 10 ml IVP 0100,0900,1700 [facility] Last Admin: 02/13/18 16:43 Dose: 10 ml Temazepam (Restoril) 15 mg PO QPM PRN PRN Reason: Insomnia Last Admin: 02/12/18 20:59 Dose: 15 mg Trazodone HCl (Desyrel) 25 mg PO QPM PRN PRN Reason: Insomnia Warfarin Sodium (Coumadin) 2 mg PO QDWARFARIN [facility] Last Admin: 02/13/18 13:01 Dose: 2 mg Furosemide 80 mg PO DAILY 04/23/16 Potassium Chloride [K-Dur] 10 meq PO DAILY 04/23/16 Warfarin Sodium 2.5 mg PO SUTUWETHSA@2100 MDD Except on 04/23/16 Digoxin 125 mcg PO DAILY 10/31/16 Multivitamin [Theragran] 1 each PO DAILY 07/05/17 Metoprolol Succinate 12.5 mg PO DAILY 10/26/17 - Allergies Allergies/Adverse Reactions: Allergies Allergy/AdvReac Type Severity Reaction Status Date / Time No Known Drug Allergies Allergy Verified 02/09/18 19:24 Physical Exam - Vital Signs Vital Signs: Vital Signs x48h Temp Pulse Resp BP Pulse Ox 02/13/18 15:36 36.4 C L 63 18 118/60 93 Palliative Care - POLST Patient has POLST: Yes POLST Status: DNR, Selective Treatment Performance Status: Patient with some improvement in transfers, needing cueing. Remains dependent for transfers and assistance. - Palliative Care Discussion: Met with Vivian, daughter Gail, and [id number] in the context of ongoing goals of care. Patient has been declined by both carriage and for doubt goal, given his underlying dementia and escalating behaviors, they do not feel he is a rehab candidate is my understanding. This is much of a disappointment to the family as they are at this point unable to provide fo are provide 24-hour care or support with patient's current level of care, had been hopeful patient would recover to some previous level of functioning. 's health continues to deteriorate, patient is quite belligerent and verbally abusive to her Blaming her for her is current situation. He does not appear to have under standing or insight into his current condition, ongoing deterioration, or need to participate in care. 's understanding is patient is continued to be quite frail, is not expected to have asked extended life expectancy, and does agree that at this point it does make sense to transition to comfort care and focus on minimizing suffering and distress for patient. Discussed in the context the patient's escalating behaviors, most likely will need ongoing antipsychotics, finding the balance between sedation and addressing his behaviors particularly transitioning to a new setting. Daughter and are in agreement, want this to be a smooth is transition as possible, and aware will need to balance medication management regarding this. We also visited that focus would be on comfort medications, these would include some medications to control his heart failure, but would be discontinuing medications that would not add to his quality of life. Hospice benefit was reviewed, reviewed does not pay for room and board, would not be providing enough supplemental care to be able to manage this in the home unless they were able to hire significant numbers of care hours. They have been trying to increase care at home and this is been not successful as far as finding caregivers. Did share had called [facility], social work had felt [facility] was a hard "no" even with private pay, [facility] does not have opening, [facility] have an opening, costs are at least $6000, evaluation would determine final cost depending on patient's needs and most likely could come evaluate today. At this point in time wants to proceed with evaluation, and is hopeful [facility] at [facility]. And re visiting goals, want to focus on quality of life, ease of suffering with transition knowing this may be a balance of sedation and use of antipsychotics relating to his escalating behaviors, as well as focus on keeping him comfortable and simplifying medications. Group consensus, do not feel patient would be able to be managed at home, unable to meet care needs, unable to find caregivers, and family not able to supplement care. Results - Lab Results Fish Bones: 02/13/18 04:40 02/13/18 04:40 Lab and Imaging Results: Lab Results x24hrs 02/13/18 02/13/18 02/13/18 Range/Units 04:40 04:40 04:40 WBC (4.8-10.8) x10^3/uL RBC (4.70-6.10) 10^6/uL Hgb (14.0-18.0) g/dL Hct (42.0-52.0) % MCV (80.0-94.0) fL MCH (27.0-31.0) pg MCHC (32.0-36.0) g/dL RDW (12.0-15.0) % Plt Count (130-450) 10^3/uL MPV (7.4-11.4) fL Neut # (Auto) (1.5-6.6) 10^3/uL Lymph # (Auto) (1.5-3.5) 10^3/uL [place] # (Auto) (0.0-1.0) 10^3/uL Eos # (Auto) (0.0-0.7) 10^3/uL Baso # (Auto) (0.0-0.1) 10^3/uL Absolute Nucleated RBC x10^3/uL Nucleated RBC % /100WBC PT (9.9-12.6) secs INR (0.8-1.2) Sodium 142 (135-145) mmol/L Potassium 3.5 (3.5-5.0) mmol/L Chloride 92 L (101-111) mmol/L Carbon Dioxide 36 H (21-32) mmol/L Anion Gap 14.0 H (6-13) BUN 29 H (6-20) mg/dL Creatinine 1.1 (0.6-1.2) mg/dL Estimated GFR (MDRD) 63 L (>89) Glucose 123 H (70-100) mg/dL Calcium 8.8 (8.5-10.3) mg/dL Total Bilirubin 1.0 (0.2-1.0) mg/dL AST 31 (10-42) IU/L ALT 24 (10-60) IU/L Alkaline Phosphatase 181 H (42-121) IU/L B-Natriuretic Peptide 796 H (5-100) pg/mL Total Protein 6.7 (6.7-8.2) g/dL Albumin 3.0 L (3.2-5.5) g/dL Globulin 3.7 (2.1-4.2) g/dL Albumin/Globulin Ratio 0.8 L (1.0-2.2) Free T4 0.93 (0.58-1.64) ng/dL Thyroxine (T4) 12.19 (6.09-12.23) ug/dL Cortisol PM Sample ug/dL 02/13/18 02/13/18 02/12/18 Range/Units 04:40 04:40 20:02 WBC 5.1 (4.8-10.8) x10^3/uL RBC 4.01 L (4.70-6.10) 10^6/uL Hgb 13.2 L (14.0-18.0) g/dL Hct 40.9 L (42.0-52.0) % MCV 101.9 H (80.0-94.0) fL MCH 33.0 H (27.0-31.0) pg MCHC 32.4 (32.0-36.0) g/dL RDW 14.7 (12.0-15.0) % Plt Count 143 (130-450) 10^3/uL MPV 8.5 (7.4-11.4) fL Neut # (Auto) 3.9 (1.5-6.6) 10^3/uL Lymph # (Auto) 0.5 L (1.5-3.5) 10^3/uL [place] # (Auto) 0.6 (0.0-1.0) 10^3/uL Eos # (Auto) 0.1 (0.0-0.7) 10^3/uL Baso # (Auto) 0.0 (0.0-0.1) 10^3/uL Absolute Nucleated RBC 0.00 x10^3/uL Nucleated RBC % 0.1 /100WBC PT 26.7 H (9.9-12.6) secs INR 2.4 H (0.8-1.2) Sodium (135-145) mmol/L Potassium (3.5-5.0) mmol/L Chloride (101-111) mmol/L Carbon Dioxide (21-32) mmol/L Anion Gap (6-13) BUN (6-20) mg/dL Creatinine (0.6-1.2) mg/dL Estimated GFR (MDRD) (>89) Glucose (70-100) mg/dL Calcium (8.5-10.3) mg/dL Total Bilirubin (0.2-1.0) mg/dL AST (10-42) IU/L ALT (10-60) IU/L Alkaline Phosphatase (42-121) IU/L B-Natriuretic Peptide (5-100) pg/mL Total Protein (6.7-8.2) g/dL Albumin (3.2-5.5) g/dL Globulin (2.1-4.2) g/dL Albumin/Globulin Ratio (1.0-2.2) Free T4 (0.58-1.64) ng/dL Thyroxine (T4) (6.09-12.23) ug/dL Cortisol PM Sample 16.5 ug/dL Impression and Recommendations - Palliative Care Impression: This is an 87-year-old gentleman who can continues with advanced dementia, Diastolic congestive heart failure, chronic atrial fib, admitted acutely with cellulitis. Patient does have documented ongoing functional and cognitive decline over the last several months and more acutely over the last several weeks. Goals have been defined as focusing on comfort, relief of suffering, and transitioning to hospice. Awaiting evaluation from [facility] for [facility]. Recommendations/Counseling Done: 1. Dementia with behavioral disturbances. This includes concern for escalating agitation, hallucinations, Though fluctuates in status, most likely is going to need escalating antipsychotics until "settled in" new setting. Counseling provided to family regarding risks and balances for sedation, fall risk, their main concern is relief of suffering and easing transition. Discussed with ho spitalist patient needs to be initiated on antipsychotic, would recommend initiating Seroquel 25 mg at hs, as well as have available Haldol 2 mg/ml 0.5 ml q 2 hours for agitation on discharge #30 mls. Patient may need benzodiazepine IE Lorazepam 1 mg to assist with discharge and transition to new setting secondary to agitation and belligerence. 2. Advanced care planning. Conversation with [facility] DON Mel, regarding concerns and patient's behaviors, goals for hospice and transition to comfort and focus on quality of life. Patient not imminently dying, but expected ongoing decline both functional and cognitive, given patient's underlying and multiple comorbidities as well as focus on goals of care. Will come evaluate patient. Call to hospice regarding plan, need for admit. Will update POLST with tomorrow to reflect family conference and goals of care conversation with [facility]AR/[facility] and transition to hospice. Patient will need comfort medications in facility if accepted to ease transition. Time Spent: 50 minutes with greater than 50% of this done in counseling with family regarding goals of care, transition planning, and anticipatory guidance as well as counseling regarding hospice benefit both limitations and support
[2018-02-13] MEDS: cefTRIAXone 1 GM in SODIUM CHLORIDE 0.9% MINIBAG 100 ML IV SCH (21:07)
[2018-02-13] MEDS: SODIUM CHLORIDE FLUSH 0.9% 10 ML SYRINGE IVP PRN (21:08)
[2018-02-14] MEDS: SODIUM CHLORIDE FLUSH 0.9% 10 ML SYRINGE IVP SCH ×2 (01:22→08:23)
[2018-02-14] MEDS: LEVOTHYROXINE 25 MCG TABLET PO SCH (06:13)
[2018-02-14] MEDS: SENNA 8.6 MG TABLET PO SCH (08:22)
[2018-02-14] MEDS: SACCHAROMYCES BOULARDII 250 MG CAPSULE PO SCH (08:22)
[2018-02-14] MEDS: DIGOXIN 125 MCG TABLET PO SCH (08:23)
[2018-02-14] MEDS: FUROSEMIDE 40 MG/4 ML VIAL IVP SCH (08:23)
[2018-02-14] MEDS: MULTIVITAMIN TABLET PO SCH (08:23)
[2018-02-14] MEDS: NYSTATIN 500000 UNITS/5 ML UDC PO SCH ×2 (08:23→13:50)
[2018-02-14] MEDS: POLYETHYLENE GLYCOL 3350 17 GM PACKET PO SCH (08:23)
[2018-02-14] MEDS: DOCUSATE SODIUM 250 MG CAPSULE PO SCH (08:23)
[2018-02-14] MEDS: FAMOTIDINE 20 MG TABLET PO SCH (08:23)
--- NOTE | 2018-02-14 10:28 | Discharge Plan ---
"Discharge Plan for SNF / [facility] - Discharge Plan And Transition Orders Disposition: 03 SNF DC/Xfer Condition: Poor Allergies and Adverse Reactions: Allergies Allergy/AdvReac Type Severity Reaction Status Date / Time No Known Drug Allergies Allergy Verified 02/09/18 19:24 - SNF / [facility] Transition Orders Admit to (Facility): [facility] Under the care of (Name): Denzel Ortiz Discharge Diagnosis: Dementia, cellulitis, diastolic CHF, CKD, chronic lower extremities edema, pleural effusion, afib, physical deconditioning Medicare Certification Statement: I do not certify that [facility] care is medically necessary on a continuing basis for any of the conditions for which she/he is receiving care during hospitalization. Notify PCP of admission and forward orders to primary provider for signature. Other Notification Orders: Call PCP immediately if patient develops dyspnea, chest pain/tightness or edema. House Bowel Program: Yes Additional Bowel Program Orders: If no BM after 2 days, nurse may give M.O.M. 30ml PO PRN and/or ducolax Supp 1 AK and/or SHITAL 250mg P.O., and/or senna 1-2 tabs PO. On day 3 nurse may give repeat above order until residents constipation is resolved. Annual Influenza Vaccine (between Oct 06 and May 05): Yes Two-step PPD per [facility] [phone] or approved exception documents: Yes Treatments & Other Orders: you may followup your hospice care team when you are arrival at [facility]. Oxygen Orders: PRN Medication Orders: PLEASE REFER TO THE DISCHARGE MEDICATION LIST. Insulin Orders?: No - Medications New Prescriptions: Cephalexin [Keflex] 500 mg PO BID #10 capsule Haloperidol Oral Soln [Haldol Oral Soln] 1 mg PO Q4H PRN #10 ml PRN Reason: Agitation LORazepam [Ativan] 0.5 mg PO Q6H PRN #15 tablet PRN Reason: Anxiety Morphine Sulfate [Morphine Sulf Oral (Roxanol)] 10 mg PO Q1H PRN #30 ml PRN Reason: Pain/Dyspnea QUEtiapine [SEROquel] 25 mg PO QPM PRN #5 tablet PRN Reason: Insomnia - Diet Type: Geriatric Texture: Regular Liquids: Thin May have monthly special meal: Yes - Therapies | Activity Additional Instructions: you may followup your hospice care team when you are arrival at [facility]."
--- NOTE | 2018-02-14 10:59 | DISCHARGE SUMMARY ---
"Discharge Summary Discharge Date: 02/14/18 Discharging Provider: CHAUHAN Primary Care Provider: Denzel Degroot Condition at Discharge: Poor Discharge Disposition: SNF DC/Xfer Discharge Facility Name: [facility] - DIAGNOSES Admission Diagnoses: (1) Cellulitis (2) Pleural effusion due to congestive heart failure (3) Chronic edema (4) Chronic hypoxemic respiratory failure (5) Hypercarbia (7) Hypotension (8) Atrial fibrillation (9) Diastolic heart failure (10) Elevated bilirubin (11) Advance care planning Discharge Diagnoses with Status of Each Condition: (1) Cellulitis stable, WBC is normal, prescribed antibiotics (2) hospice care pt's family and choose hospice care for pt, and d/c to [facility]. Reported to Dr. Guzman for continuing care to pt pt is with physical deconditioning with continuing decline, diastolic heart failure, advanced dementia with disturbance behaviors and CKD (3) CKD (chronic kidney disease) stage 2, GFR 60-89 ml/min continue hospice care (4) Diastolic heart failure, NYHA class 3 resume home meds, per family request, continue hospice care (5) Chronic edema continue hospice care (6) Pleural effusion due to congestive heart failure continue hospice care (7) Chronic anticoagulation continue hospice care (8) Hypotension stable (9) afib stable (10)advanced dementia with disturbance behaviors continue hospice care, prescribed seroquel and Haldol per palliative care provider's recommendation, and family request. (11) physical deconditioning continue hospice care - HPI History of Present Illness: refer from Dr. Krishnamurthy's HPI for pt as the followin-year-old male with advanced dementia and a history of Diastolic congestive heart failure, chronic atrial fibrillation with a PM, hypertension, CKD stage 2, dementia, OA, GERD, and BPH has developed worsening redness to the right lower extremity. He has chronic edema to both lower extremities and is using a wrap therapy to control the edema and about 3 days ago the visiting nurse thought he should go to the emergency department because of increasing redness. Today the family notes that the patient has not been out of bed and has decreased activity. He has a marked increase in the amount of redness to his right lower extremity. He has redness now extending up to the upper thigh and yesterday this was below the knee. He has not had a fever he has not had vomiting. He is on oxygen at home as well as diuretics and he is feeling that he is not able to urinate. On labs patient had co2 38, on 2L NC at nightime for his chronic hypoxemic resp failure from his diastolic HF, chronic afib on coumadin with INR therapeutic at 2.6, cr 1.1 with baseline 0.9-1.3, ckd stage 2, BNP 818, Tbili 2.6, with normal LFT's, Dig level was 1.3. CBC unremarkable. Patient's family mention edema with some mild SOB than usual without chest pain, flank pain, dysuria, N/V, abd pain, diarrhea, or /GI symptoms. CXR showed right pleural effusion with opacities R>L, on lasix previously. BP's were on the low side and was taking lisinopril along with metoprolol for afterload reduction. - CONSULTS | PROCEDURES Consultations: palliative care, and hospice referral - HOSPITAL COURSE Hospital Course: pt was admitted for bilateral lower extremities cellulitis. pt was treated with antibiotics. Cellulitis has been improved clinically. pt's family and choose hospice care for pt. Palliative and hospice care was consulted and referred. pt has physical deconditioning with continuing decline, diastolic heart failure, advanced dementia with disturbance behaviors and CKD. pt is d/c to [facility] with hospice care - ALLERGIES Allergies/Adverse Reactions: Allergies Allergy/AdvReac Type Severity Reaction Status Date / Time No Known Drug Allergies Allergy Verified 02/09/18 19:24 - MEDICATIONS Home Medications: Ambulatory Orders Medication Instructions Recorded Confirmed Furosemide 80 mg PO DAILY 04/23/16 02/09/18 Potassium Chloride [K-Dur] 10 meq PO DAILY 04/23/16 02/09/18 Warfarin Sodium 2.5 mg PO SUTUWETHSA@2100 04/23/16 02/10/18 Digoxin 125 mcg PO DAILY 10/31/16 02/09/18 Multivitamin [Theragran] 1 each PO DAILY 07/05/17 02/09/18 Metoprolol Succinate 12.5 mg PO DAILY 10/26/17 02/09/18 Cephalexin [Keflex] 500 mg PO BID #10 capsule 02/14/18 Haloperidol Oral Soln [Haldol Oral 1 mg PO Q4H PRN #10 ml 02/14/18 Soln] LORazepam [Ativan] 0.5 mg PO Q6H PRN #15 tablet 02/14/18 Morphine Sulfate [Morphine Sulf 10 mg PO Q1H PRN #30 ml 02/14/18 Oral (Roxanol)] QUEtiapine [SEROquel] 25 mg PO QPM PRN #5 tablet 02/14/18 - PHYSICAL EXAM AT DISCHARGE General Appearance: positive: No acute distress, Alert. negative: Lethargic Eyes Bilateral: positive: Normal inspection, PERRL, No lid inflammation, Conjunctivae nml ENT: positive: ENT inspection nml, Pharynx nml, No signs of dehydration. negative: Purulent nasal drainage, Pharyngeal erythema, Oral lesions Neck: positive: Nml inspection, Thyroid nml, No JVD, Trachea midline. negative: Thyromegaly, Lymphadenopathy (R), Lymphadenopathy (L), Stiff neck, Swelling/bruising, Tracheal deviation Respiratory: positive: Chest non-tender, No respiratory distress. negative: Wheezes, Rales Cardiovascular: positive: Regular rate & rhythm, No murmur, No gallop. negative: Irregularly irregular, Extrasystoles, Tachycardia, Bradycardia, JVD present, Systolic murmur, Diastolic murmur Peripheral Pulses: positive: 2+ Abdomen: positive: Non-tender, No organomegaly, Nml bowel sounds, No distention. negative: Tenderness, Guarding, Rebound Back: positive: Nml inspection. negative: CVA tenderness (R), CVA tenderness (L) Skin: positive: Color nml, Warm, Dry, Skin rash. negative: Cyanosis, Diaphoresis, Pallor Extremities: positive: Non-tender. negative: Calf tenderness, Joint swelling, Aura's sign/cords Neurologic/Psychiatric: negative: Weakness, Sensory loss, Facial droop, Slurred/abnml speech, Depressed mood/affect - LABS Result Diagrams: 02/13/18 04:40 02/13/18 04:40 - SEPSIS Current Stage of Sepsis: Sepsis Possible source of Sepsis: Skin/soft tissue Sepsis Criteria: Respiratory: Increasing oxygen requirements, STATION OPERATOR: altered consciousness (unrelated to primary neuro pathology), Renal: urine output less than 0.5ml/kg/hr for 2 hours or creatinine gr, Hepatic: Bilirubin greater than 2mg/dl - FOLLOW UP Follow Up: pt may followup hospice care after he is arrival to [facility] - TIME SPENT Time Spent in Discharge (Minutes): 50"
[2018-02-14 11:11] VITALS: BP 102/56
[2018-02-14 11:41] LABS: VANCOMYCIN,TROUGH 17.3 ug/mL (10.0-20.0)
[2018-02-14] MEDS: VANCOMYCIN INJ 1 GM in SODIUM CHLORIDE 0.9% 250 ML IV SCH (12:37)
[2018-02-14] MEDS ORDERED: LORazepam 0.5 MG TABLET PO SCH (13:00)
== END 2018-02-14 14:10 | disposition hospice, home (50) | DRG 871 ==
LOC: EDUNIT# → ED 19:11 → MS2 21:58
PROVIDERS: ADMIT Family Medicine; ATTEND Nurse Practitioner
DX: A41.9 Sepsis, unspecified organism (principal); F03.90 Unspecified dementia, unspecified severity, without behavioral disturbance, psychotic disturbance, mood disturbance, and anxiety; I11.0 Hypertensive heart disease with heart failure; I50.9 Heart failure, unspecified; I48.91 Unspecified atrial fibrillation; I50.33 Acute on chronic diastolic (congestive) heart failure; L03.115 Cellulitis of right lower limb; I13.0 Hypertensive heart and chronic kidney disease with heart failure and stage 1 through stage 4 chronic kidney disease, or unspecified chronic kidney disease; F03.91 Unspecified dementia, unspecified severity, with behavioral disturbance; J96.12 Chronic respiratory failure with hypercapnia; J96.11 Chronic respiratory failure with hypoxia; B37.0 Candidal stomatitis; N18.2 Chronic kidney disease, stage 2 (mild); Z79.02 Long term (current) use of antithrombotics/antiplatelets; I48.2 Chronic atrial fibrillation; Z95.0 Presence of cardiac pacemaker; K21.9 Gastro-esophageal reflux disease without esophagitis; Z99.81 Dependence on supplemental oxygen; Z51.5 Encounter for palliative care; Z74.01 Bed confinement status; E80.6 Other disorders of bilirubin metabolism; I27.20 Pulmonary hypertension, unspecified; R45.1 Restlessness and agitation; F41.9 Anxiety disorder, unspecified; R62.7 Adult failure to thrive; N40.0 Benign prostatic hyperplasia without lower urinary tract symptoms; R32 Unspecified urinary incontinence; R35.0 Frequency of micturition; H54.7 Unspecified visual loss; H91.90 Unspecified hearing loss, unspecified ear; M19.90 Unspecified osteoarthritis, unspecified site; Z90.49 Acquired absence of other specified parts of digestive tract; Z96.649 Presence of unspecified artificial hip joint; H26.9 Unspecified cataract; Z66 Do not resuscitate
CPT/HCPCS: 36415; 71045; 80053; 80069; 80162; 80202; 82533; 83605; 83690; 83735; 83880; 84436; 84439; 84443; 85025; 85610; 87040; 93306; 93970; 96361; 96365; 96368; 99232; 99233; 99284; 99285

== ENCOUNTER 2018-02-14 14:07 | Outpatient (CLI) | payer MEDICARE, OTHER | END 2018-02-14 14:08 | disposition hospice, home (50) | LOC: EMS 14:07 | PROVIDERS: ATTEND Surgery | DX: Z74.01 Bed confinement status (principal) | CPT/HCPCS: A0425; A0428 ==